=== PATIENT | male | born 1965 | race Caucasian/White ===

== ENCOUNTER → 2017-01-29 | Outpatient (CLI) | payer MEDICARE ==
--- NOTE | 2017-01-29 14:08 | MR ---
MR lumbar spine wo con Low back pain Multiplanar, multiecho imaging of the lumbar spine was obtained without contrast on a 3 Summer magnet. REFERENCE: Previous study dated 03/12/2014. FINDINGS: Paraspinal soft tissues are normal. Vertebral body height and alignment are maintained. There is no spondylolysis or spondylolisthesis. T here is a hemangioma in the body of L5. Cord signal is maintained. The conus ends normally at the level of the L1-2 disc. At T12-L1 and L1-2, no abnormalities demonstrated. At L2-3, there is mild capsulitis within the facets. At L3-4, the intervertebral foramina are widely maintained. There is no significant compressive disco janelle. There is hypertrophic change and capsulitis within the facets. At L4-5,there is mild disc space loss and disc desiccation. The intervertebral foramina appear well m aintained. There is a mild, diffuse disc displacement. This hypertrophic changes in the facets. There is mild lateral recess stenosis on the left. At L5-S1, there is a tiny central disc protrusion. This is effacing the thecal sac without definite n eural compression. There is bilateral intervertebral foraminal narrowing. There are hypertrophic stephenson ges in the facets. IMPRESSION: 1. DIFFUSE FACET ARTHROPATHY. 2. MILD LATERAL RECESS STENOSIS, L4-5. 3. TINY CENTRAL DISC PROTRUSION, L5-S1 EFFACING THE THECAL SAC WITHOUT DEFINITE NEURAL COMPRESSION. 4. BILATERAL INTERVERTEBRAL FORAMINAL NARROWING, L5-S1.
== END | disposition home or self-care (01) ==
LOC: RADMRIMAIN 13:19
PROVIDERS: ATTEND Nurse Practitioner Acute Care
DX: M48.06 Spinal stenosis, lumbar region (principal); M99.73 Connective tissue and disc stenosis of intervertebral foramina of lumbar region; M51.27 Other intervertebral disc displacement, lumbosacral region; M46.86 Other specified inflammatory spondylopathies, lumbar region
CPT/HCPCS: 72148

== ENCOUNTER 2017-08-11 19:33 | Emergency (ER) | payer MEDICARE ==
[2017-08-11 19:38] VITALS: RESP 18; TEMP 98
[2017-08-11] MEDS ORDERED: diphenhydrAMINE 50 MG/ML 1 ML VIAL IVP STA (20:17)
[2017-08-11] MEDS ORDERED: SODIUM CHLORIDE 0.9% 500 ML IV ONE (20:17)
[2017-08-11] MEDS ORDERED: KETOROLAC 30 MG/ML 1 ML VIAL IVP STA (20:17)
[2017-08-11] MEDS ORDERED: METOCLOPRAMIDE 5 MG/ML 2 ML VIAL IVP STA (20:17)
--- NOTE | 2017-08-11 20:20 | ED ---
Headache HPI - General Chief Complaint: Headache Time Seen by Provider: 08/11/17 20:07 Source: patient, RN notes reviewed Mode of arrival: wheelchair Limitations: no limitations - History of Present Illness Initial Comments: This a 51-year-old male presents emergency Department with chief complaint of headache. Patient states he has chronic headaches and chronic white matter changes. Patient states he has a normal MRIs. Patient states he was having an MRI ordered by Dr. Mackey his neurologist in which she developed a headache. He states is his typical bad headache and states that he has to come to the hospital for IV treatment. He states he gets nonnarcotic medications which usually help. He states he always has a headache but this is one of its worse. He does have some photosensitivity also complains of some nausea denies any vomiting, focal weakness. Denies any confusion. Denies neck pain or neck stiffness. - Related Data Home Medications Medication Instructions Recorded Confirmed Cyclobenzaprine [Flexeril] 10 mg PO HS 10/01/15 08/11/17 clonazePAM [KlonoPIN] 1 mg PO BID 10/01/15 08/11/17 lamoTRIgine 200 mg PO BID 10/01/15 08/11/17 Cholecalciferol (Vitamin D3) 2,000 unit PO HS 08/11/17 08/11/17 [Vitamin D3] Donepezil [Aricept] 10 mg PO HS 08/11/17 08/11/17 HYDROcodone/APAP 10-325MG [[place] 1 tab PO BID PRN 08/11/17 08/11/17 10-325] Verapamil HCl [Verapamil ER] 120 mg PO HS 08/11/17 08/11/17 Allergies Allergy/AdvReac Type Severity Reaction Status Date / Time No Known Allergies Allergy Verified 08/11/17 20:30 Review of Systems ROS Statement: Those systems with pertinent positive or pertinent negative responses have been documented in the HPI. ROS Other: All systems not noted in ROS Statement are negative. Past Medical History Past Medical History: Asthma, Fibromyalgia, Seizure Disorder Additional Past Medical History / Comment(s): headaches History of Any Multi-Drug Resistant Organisms: None Reported Past Surgical History: Appendectomy Past Psychological History: No Psychological Hx Reported Smoking Status: Never smoker Past Alcohol Use History: Occasional Past Drug Use History: None Reported General Exam Limitations: no limitations General appearance: alert, in no apparent distress Head exam: Present: atraumatic, normocephalic, normal inspection Eye exam: Present: normal appearance, PERRL, EOMI. Absent: scleral icterus, conjunctival injection, periorbital swelling ENT exam: Present: normal exam, normal oropharynx, mucous membranes moist, TM's normal bilaterally, normal external ear exam Neck exam: Present: normal inspection, full ROM. Absent: tenderness, meningismus, lymphadenopathy Respiratory exam: Present: normal lung sounds bilaterally. Absent: respiratory distress, wheezes, rales, rhonchi, stridor Cardiovascular Exam: Present: regular rate, normal rhythm, normal heart sounds. Absent: systolic murmur, diastolic murmur, rubs, gallop, clicks Neurological exam: Present: alert, oriented X3, CN II-XII intact, reflexes normal, other (Mybiue-sm-hxtt intact bilaterally without overshooting.). Absent : motor sensory deficit Skin exam: Present: warm, dry, intact, normal color. Absent: rash Course Vital Signs 08/11/17 19:36 Temperature 98 F Pulse Rate 76 Respiratory 18 Rate Blood Pressure 141/86 O2 Sat by Pulse 97 Oximetry - Reevaluation(s) Reevaluation #1: 08/11/17 21:06 Patient was reevaluated. Patient states it's much improved his headache is resolved. Medical Decision Making - Medical Decision Making 51-year-old male presented for migraine headache. Patient's symptoms are improved after Toradol, Reglan and Benadryl and some fluids. Patient's MRI was reviewed which shows chronic white matter changes. Patient has known history of this. Disposition Clinical Impression: Migraine Disposition: HOME SELF-CARE Condition: Stable Instructions: Acute Headache (ED) Additional Instructions: Please return to the Emergency Department if symptoms worsen or any other concerns. Referrals: Dwayne Belle MD [Primary Care Provider] - 1-2 days Time of Disposition: 21:07
--- NOTE | 2017-08-11 20:32 | MR ---
EXAMINATION TYPE: MR brain wo/w con DATE OF EXAM: 08/11/2017 COMPARISON: 07/05/2016 HISTORY: White matter disease, MS protocol TECHNIQUE: Multiplanar, multisequence images of the brain and brainstem is performed without and with IV contras t, utilizing 7 mL intravenous Gadavist . FINDINGS: There are numerous scattered foci of abnormal increased signal on the T2 and FLAIR images i n the graff-white matter junction of both cerebral hemispheres. Total number is approximately 30. Thes e measure up to 10 mm. There are more foci in the parietal lobes. The brainstem appears normal. Cereb ellum appears normal. There is relative sparing of the corpus callosum. Lesions are mostly at the gra y-white matter junction. The sella turcica appears normal. I see no pathologic enhancement. There is mucosal thickening in the ethmoid and right maxillary sinus. There is no evidence of a cortical infar ct. IMPRESSION: Numerous white matter lesions without enhancement at the graff-white matter junction of th e hemispheres. These appear not significantly different than last exam of 07/05/2016. The lesions are small and peripheral and more likely related to small vessel ischemia. Demyelinating disease is in t he differential diagnosis. There is chronic ethmoid and right maxillary sinusitis similar to old exam.
[2017-08-11 21:24] VITALS: BP 118/75; PULSE 65
== END 2017-08-11 21:32 | disposition home or self-care (01) ==
LOC: EC 19:33
DX: G40.909 Epilepsy, unspecified, not intractable, without status epilepticus (principal); G43.909 Migraine, unspecified, not intractable, without status migrainosus; M79.7 Fibromyalgia; Z79.899 Other long term (current) drug therapy
CPT/HCPCS: 70553; 99283; 96374; 96375 ×2; 96361; J1200; J2765; J1885; A9581

== ENCOUNTER → 2017-10-28 | Outpatient (CLI) | payer MEDICARE ==
--- NOTE | 2017-10-28 12:09 | MR ---
EXAMINATION TYPE: MR lumbar spine wo con DATE OF EXAM: 10/28/2017 COMPARISON: 03/12/2014, 01/29/2017 HISTORY: Spondylosis, B/L lower extremity radiculitis TECHNIQUE: T1 and T2 axial and sagittal images of the lumbar spine are submitted. FINDINGS: There is no abnormal signal seen within the visualized spinal cord or paraspinal soft tissu es. At L1-2 there is no degenerative disc disease, disc herniation, canal stenosis. No foraminal encroach ment. At L2-3 there is no degenerative disc disease, disc herniation, canal stenosis. No foraminal encroach ment. At L3-4 there is mild disc desiccation and mild facet arthropathy. No disc herniation or canal stenos is. Neural foramina patent. At L4-5 there is Diffuse circumferential disc bulging greater laterally to left with mild left-sided foraminal encroachment. There is mild effacement of thecal sac with hypertrophy of the ligamentum fla vum and facet joints. Findings result in borderline to mild central stenosis. At L5-S1 there is degenerative disc disease with focal central disc bulging. No foraminal encroachmen t. No Canal stenosis. Facet arthropathy noted. Vertebral body hemangioma of L5 IMPRESSION: 1. Degenerative disc disease L4-5 and L5-S1 with disc bulging at both levels. Mild left-sided foramin al encroachment at L4-5 due to greater left paracentral and lateral disc bulging resulting in borderl ine to mild central stenosis. Findings appear stable.
== END | disposition home or self-care (01) ==
LOC: RADMRIMAIN 09:31
PROVIDERS: ATTEND Orthopaedic Surgery Orthopaedic Surgery of the Spine
DX: M48.061 Spinal stenosis, lumbar region without neurogenic claudication (principal); M51.17 Intervertebral disc disorders with radiculopathy, lumbosacral region
CPT/HCPCS: 72148

== ENCOUNTER 2017-12-25 14:48 | Emergency (ER) | payer MEDICARE ==
[2017-12-25 15:10] VITALS: RESP 18
--- NOTE | 2017-12-25 15:43 | ED ---
General Adult HPI - General Chief complaint: Eye Problems Stated complaint: vision problems Time Seen by Provider: 12/25/17 15:15 Source: patient, RN notes reviewed Mode of arrival: ambulatory Limitations: no limitations - History of Present Illness Initial comments: Patient is a pleasant 52-year-old male presenting to the emergency department with concern of visual changes. Onset was yesterday evening around 6 or 7:00. Patient did go to a concert last night and that seemed to make symptoms worse. Symptoms continued today. Patient does have an area of visual loss that is described as a black dot or almost a hair. Patient states this is a small part of his vision, much less than 25%. No pain. Area of visual loss does move. Only the right eye is affected. No trauma. No eye redness or discharge. No history of similar symptoms previously. - Related Data Home Medications Medication Instructions Recorded Confirmed Cyclobenzaprine [Flexeril] 10 mg PO HS 10/01/15 08/11/17 clonazePAM [KlonoPIN] 1 mg PO BID 10/01/15 08/11/17 lamoTRIgine 200 mg PO BID 10/01/15 08/11/17 Cholecalciferol (Vitamin D3) 2,000 unit PO HS 08/11/17 08/11/17 [Vitamin D3] Donepezil [Aricept] 10 mg PO HS 08/11/17 08/11/17 HYDROcodone/APAP 10-325MG [[place] 1 tab PO BID PRN 08/11/17 08/11/17 10-325] Verapamil HCl [Verapamil ER] 120 mg PO HS 08/11/17 08/11/17 Allergies Allergy/AdvReac Type Severity Reaction Status Date / Time divalproex sodium Allergy Unknown Verified 12/25/17 15:10 [[facility] Review of Systems ROS Statement: Those systems with pertinent positive or pertinent negative responses have been documented in the HPI. ROS Other: All systems not noted in ROS Statement are negative. Constitutional: Denies: fever Eyes: Reports: as per HPI, vision change. Denies: eye pain, eye discharge ENT: Denies: ear pain Respiratory: Denies: cough Cardiovascular: Denies: chest pain Endocrine: Denies: fatigue Gastrointestinal: Denies: abdominal pain Genitourinary: Denies: dysuria Musculoskeletal: Denies: back pain Skin: Denies: rash Neurological: Denies: weakness, confusion Past Medical History Past Medical History: Asthma, Fibromyalgia, Seizure Disorder Additional Past Medical History / Comment(s): headaches, lyme disease, chronic back pain History of Any Multi-Drug Resistant Organisms: None Reported Past Surgical History: Appendectomy, Orthopedic Surgery Additional Past Surgical History / Comment(s): right knee Past Psychological History: No Psychological Hx Reported Smoking Status: Never smoker Past Alcohol Use History: Occasional Past Drug Use History: None Reported General Exam Limitations: no limitations General appearance: alert, in no apparent distress Head exam: Present: atraumatic Eye exam: Present: normal appearance, PERRL, EOMI. Absent: scleral icterus, conjunctival injection, nystagmus, periorbital swelling, periorbital tenderness Expanded Eyelids: Normal Inspection: Bilateral Pupils: Regular, Round: Bilateral, Reactive: Bilateral Sclera/Conjunctival: Normal Inspection: Bilateral Posterior chamber: Normal Inspection: Bilateral Respiratory exam: Present: normal lung sounds bilaterally Cardiovascular Exam: Present: regular rate, normal rhythm GI/Abdominal exam: Present: soft. Absent: tenderness Extremities exam: Present: normal inspection Neurological exam: Present: alert Psychiatric exam: Present: normal affect, normal mood Skin exam: Present: normal color Course Vital Signs 12/25/17 15:06 Temperature 98.1 F Pulse Rate 81 Respiratory 18 Rate Blood Pressure 136/84 O2 Sat by Pulse 98 Oximetry Medical Decision Making - Medical Decision Making Case discussed in detail Dr. Mckeon with ophthalmology who does not feel further workup is needed at this time and will follow up with patient tomorrow. Disposition Clinical Impression: Floaters Disposition: HOME SELF-CARE Condition: Stable Instructions: Visual Floaters (ED) Additional Instructions: Please follow-up tomorrow with Dr. Marr, number provided. Call first thing in the morning. Return for pain, fever, loss of vision, worsening symptoms or other concerns. Is patient prescribed a controlled substance at d/c from ED?: No Referrals: Dwayne Belle MD [Primary Care Provider] - 1-2 days Leonard Mckeon MD [STAFF PHYSICIAN] - 1-2 days Time of Disposition: 16:10
[2017-12-25 16:38] VITALS: BP 135/88; PULSE 65; TEMP 97.7
== END 2017-12-25 16:35 | disposition home or self-care (01) ==
LOC: EC 14:48
DX: H43.391 Other vitreous opacities, right eye (principal); G40.909 Epilepsy, unspecified, not intractable, without status epilepticus; G89.29 Other chronic pain; Z79.899 Other long term (current) drug therapy; Z88.8 Allergy status to other drugs, medicaments and biological substances
CPT/HCPCS: 99283

== ENCOUNTER 2018-01-30 05:05 | Inpatient (IN) | payer MEDICARE ==
[2018-01-30] MEDS ORDERED: SODIUM CHLORIDE 0.9% 1,000 ML IV STA (05:10)
[2018-01-30 05:14] LABS: Glucose,Whole Blood 101 mg/dL (75-99)
[2018-01-30 05:35] LABS: Basophils % (A) 1 %; Eosinophils # (A) 0.2 k/uL (0-0.7); Eosinophils % (A) 3 %; HCT 43.7 % (39.0-53.0); HGB 14.9 gm/dL (13.0-17.5); Lymphocytes # (A) 1.7 k/uL (1.0-4.8); Lymphocytes % (A) 21 %; MCH 31.6 pg (25.0-35.0); MCV 92.9 fL (80.0-100.0); Mean Platelet Volume 6.5; Monocytes # (A) 0.5 k/uL (0-1.0); Monocytes % (A) 6 %; Neutrophils # (A) 5.5 k/uL (1.3-7.7); Neutrophils % (A) 68 %; Platelet Count 202 k/uL (150-450); RDW 12.8 % (11.5-15.5); WBC 8.1 k/uL (3.8-10.6)
--- NOTE | 2018-01-30 05:43 | ED ---
General Adult HPI - General Chief complaint: Neuro Symptoms/Deficit Stated complaint: poss stroke Time Seen by Provider: 01/30/18 05:07 Source: patient, RN notes reviewed, old records reviewed Mode of arrival: wheelchair Limitations: no limitations - History of Present Illness Initial comments: This is a 52-year-old prior to arrival with left upper extremity weakness and decrease in sensation. No other neurological complaint, no headache no trauma. No recent change in medications. Patient denies fever cough or congestion. No abdominal pain. Patient admits to good appetite. - Related Data Home Medications Medication Instructions Recorded Confirmed Cyclobenzaprine [Flexeril] 10 mg PO HS 10/01/15 08/11/17 clonazePAM [KlonoPIN] 1 mg PO BID 10/01/15 08/11/17 lamoTRIgine 200 mg PO BID 10/01/15 08/11/17 Cholecalciferol (Vitamin D3) 2,000 unit PO HS 08/11/17 08/11/17 [Vitamin D3] Donepezil [Aricept] 10 mg PO HS 08/11/17 08/11/17 HYDROcodone/APAP 10-325MG [[place] 1 tab PO BID PRN 08/11/17 08/11/17 10-325] Verapamil HCl [Verapamil ER] 120 mg PO HS 08/11/17 08/11/17 Allergies Allergy/AdvReac Type Severity Reaction Status Date / Time divalproex sodium Allergy Unknown Verified 12/25/17 15:10 [From Depakote] Review of Systems ROS Statement: Those systems with pertinent positive or pertinent negative responses have been documented in the HPI. ROS Other: All systems not noted in ROS Statement are negative. Past Medical History Past Medical History: Asthma, Fibromyalgia, Seizure Disorder Additional Past Medical History / Comment(s): headaches, lyme disease, chronic back pain History of Any Multi-Drug Resistant Organisms: None Reported Past Surgical History: Appendectomy, Orthopedic Surgery Additional Past Surgical History / Comment(s): right knee Past Psychological History: No Psychological Hx Reported Smoking Status: Never smoker Past Alcohol Use History: Occasional Past Drug Use History: None Reported General Exam - General Exam Comments Initial Comments: NIH of 1 Limitations: no limitations General appearance: alert, in no apparent distress Head exam: Present: atraumatic, normocephalic, normal inspection Eye exam: Present: normal appearance, PERRL, EOMI. Absent: scleral icterus, conjunctival injection, periorbital swelling ENT exam: Present: normal exam, mucous membranes moist Neck exam: Present: normal inspection. Absent: tenderness, meningismus, lymphadenopathy Respiratory exam: Present: normal lung sounds bilaterally. Absent: respiratory distress, wheezes, rales, rhonchi, stridor Cardiovascular Exam: Present: regular rate, normal rhythm, normal heart sounds. Absent: systolic murmur, diastolic murmur, rubs, gallop, clicks GI/Abdominal exam: Present: soft, normal bowel sounds. Absent: distended, tenderness, guarding, rebound, rigid Extremities exam: Present: normal inspection, full ROM, normal capillary refill. Absent: tenderness, pedal edema, joint swelling, calf tenderness Back exam: Present: normal inspection Neurological exam: Present: alert, oriented X3, CN II-XII intact Psychiatric exam: Present: normal affect, normal mood Skin exam: Present: warm, dry, intact, normal color. Absent: rash Course Vital Signs 01/30/18 05:11 Temperature 97 F L Pulse Rate 80 Respiratory 20 Rate Blood Pressure 140/90 O2 Sat by Pulse 96 Oximetry - Reevaluation(s) Reevaluation #1: 01/30/18 06:07 No change in symptoms at this time Reevaluation #2: 01/30/18 06:07 Medical record is reviewed EKG Findings - EKG Comments: EKG Findings:: EKG shows normal sinus rhythm rate of 75, MS 164, QRS 80, QTC 506 Medical Decision Making - Medical Decision Making 52 male the ER with left upper extremity weakness decreased sensation, patient to be admit to having stroke. Patient's not TPA candidate secondary to both low NIH, and onset of symptoms prior to waking up. Patient will be admitted to the hospital for evaluation. - Lab Data Result diagrams: 01/30/18 05:22 01/30/18 05:22 Lab Results 01/30/18 01/30/18 01/30/18 Range/Units 05:11 05:22 05:22 WBC 8.1 (3.8-10.6) k/uL RBC 4.70 (4.30-5.90) m/uL Hgb 14.9 (13.0-17.5) gm/dL Hct 43.7 (39.0-53.0) % MCV 92.9 (80.0-100.0) fL MCH 31.6 (25.0-35.0) pg MCHC 34.0 (31.0-37.0) g/dL RDW 12.8 (11.5-15.5) % Plt Count 202 (150-450) k/uL Neutrophils % 68 % Lymphocytes % 21 % Monocytes % 6 % Eosinophils % 3 % Basophils % 1 % Neutrophils # 5.5 (1.3-7.7) k/uL Lymphocytes # 1.7 (1.0-4.8) k/uL Monocytes # 0.5 (0-1.0) k/uL Eosinophils # 0.2 (0-0.7) k/uL Basophils # 0.0 (0-0.2) k/uL PT (9.0-12.0) sec INR (<1.2) APTT (22.0-30.0) sec Sodium (137-145) mmol/L Potassium (3.5-5.1) mmol/L Chloride (98-107) mmol/L Carbon Dioxide (22-30) mmol/L Anion Gap mmol/L BUN (9-20) mg/dL Creatinine (0.66-1.25) mg/dL Est GFR (CKD-EPI)AfAm (>60 ml/min/1.73 sqM) Est GFR (CKD-EPI)NonAf (>60 ml/min/1.73 sqM) Glucose (74-99) mg/dL POC Glucose (mg/dL) 101 H (75-99) mg/dL POC Glu [employer] ID Arik Ackerman Calcium (8.4-10.2) mg/dL Total Bilirubin (0.2-1.3) mg/dL AST (17-59) U/L ALT (21-72) U/L Alkaline Phosphatase (38-126) U/L Total Creatine Kinase 80 (55-170) U/L CK-MB (CK-2) 0.6 (0.0-2.4) ng/mL CK-MB (CK-2) Rel Index 0.8 Troponin I <0.012 (0.000-0.034) ng/mL Total Protein (6.3-8.2) g/dL Albumin (3.5-5.0) g/dL 06/25/18 06/25/18 Range/Units 05:22 05:22 WBC (3.8-10.6) k/uL RBC (4.30-5.90) m/uL Hgb (13.0-17.5) gm/dL Hct (39.0-53.0) % MCV (80.0-100.0) fL MCH (25.0-35.0) pg MCHC (31.0-37.0) g/dL RDW (11.5-15.5) % Plt Count (150-450) k/uL Neutrophils % % Lymphocytes % % Monocytes % % Eosinophils % % Basophils % % Neutrophils # (1.3-7.7) k/uL Lymphocytes # (1.0-4.8) k/uL Monocytes # (0-1.0) k/uL Eosinophils # (0-0.7) k/uL Basophils # (0-0.2) k/uL PT 9.9 (9.0-12.0) sec INR 1.0 (<1.2) APTT 22.1 (22.0-30.0) sec Sodium 141 (137-145) mmol/L Potassium 4.0 (3.5-5.1) mmol/L Chloride 102 (98-107) mmol/L Carbon Dioxide 30 (22-30) mmol/L Anion Gap 9 mmol/L BUN 12 (9-20) mg/dL Creatinine 1.10 (0.66-1.25) mg/dL Est GFR (CKD-EPI)AfAm 88 (>60 ml/min/1.73 sqM) Est GFR (CKD-EPI)NonAf 76 (>60 ml/min/1.73 sqM) Glucose 101 H (74-99) mg/dL POC Glucose (mg/dL) (75-99) mg/dL POC Glu [employer]ice ID Calcium 9.0 (8.4-10.2) mg/dL Total Bilirubin 0.4 (0.2-1.3) mg/dL AST 24 (17-59) U/L ALT 30 (21-72) U/L Alkaline Phosphatase 92 (38-126) U/L Total Creatine Kinase (55-170) U/L CK-MB (CK-2) (0.0-2.4) ng/mL CK-MB (CK-2) Rel Index Troponin I (0.000-0.034) ng/mL Total Protein 6.3 (6.3-8.2) g/dL Albumin 4.3 (3.5-5.0) g/dL - Radiology Data Radiology results: report reviewed (CT brain CT had neck negative), image reviewed Disposition Clinical Impression: Cerebrovascular accident, Transient cerebral ischemia Disposition: ADMITTED IP TO THIS [facility] Condition: Fair Is patient prescribed a controlled substance at d/c from ED?: No Referrals: Dwayne Belle MD [Primary Care Provider] - 1-2 days
[2018-01-30 05:49] LABS: Albumin 4.3 g/dL (3.5-5.0); Total Bilirubin 0.4 mg/dL (0.2-1.3); Total Protein 6.3 g/dL (6.3-8.2)
[2018-01-30 05:50] LABS: Creatine Kinase 80 U/L (55-170)
[2018-01-30 05:57] LABS: Partial Thromboplastin Time 22.1 sec (22.0-30.0); Prothrombin Time 9.9 sec (9.0-12.0)
[2018-01-30 06:03] LABS: Creatine Kinase MB 0.6 ng/mL (0.0-2.4); Troponin I <0.012 ng/mL (0.000-0.034)
[2018-01-30] MEDS ORDERED: ASPIRIN 325 MG TAB PO STA (06:08)
--- NOTE | 2018-01-30 06:18 | CT ---
EXAMINATION TYPE: CT brain wo con for TPA DATE OF EXAM: 01/30/2018 COMPARISON: 10/01/2015 HISTORY: 1306.40 CT DLP: R/O Stroke mGycm Automated exposure control for dose reduction was used. FINDINGS: Ventricles of normal size. There is no mass effect nor midline shift. There is no sign of intracrania l hemorrhage. The calvarium appears intact. IMPRESSION: NORMAL HEAD CT SCAN. NO CHANGE.
--- NOTE | 2018-01-30 06:21 | CT ---
EXAMINATION TYPE: CT angio head neck DATE OF EXAM: 01/30/2018 HISTORY: R/O Stroke, left arm numbness COMPARISON: NONE CT DLP: 1306.40 mGycm. Automated Exposure Control for Dose Reduction was Utilized. TECHNIQUE: CTA scan of the neck is performed with IV Contrast, patient injected with 65 mL of Isovue 370, axial images are obtained, coronal and sagittal reformatted images are reviewed. Three-D recons tructed images are created on an independent workstation and reviewed. FINDINGS: There is normal branching pattern of the great vessels on the aortic arch. Left vertebral artery as s eparate origin on the arch. There is arterial flow in both vertebral arteries which are fairly symmetric. There is arterial flow in the common internal and external carotid arteries bilaterally. There is wide patency of the caroti d artery bifurcations. There is no evidence of carotid artery aneurysm or dissection. There is no bonnie dence of carotid artery stenosis. There is arterial flow in the vertebrobasilar artery system. There is flow in the right posterior com municating artery. There is arterial flow in the anterior middle and posterior cerebral arteries. I s ee no evidence of aneurysm or neovascularity. There is no evidence of spasm. I see no cerebral artery stenosis. There is normal contrast opacification of the venous sinuses. IMPRESSION: Normal CT angiogram of the neck. Normal CT angiogram of the brain.
[2018-01-30] MEDS: SODIUM CHLORIDE 0.9% 1,000 ML IV SCH ×2 (06:51→17:30)
[2018-01-30] MEDS ORDERED: HYDROcodone/APAP 5-325MG 1 EACH TAB PO STA (07:11)
[2018-01-30] MEDS ORDERED: LORazepam 2 MG/ML INJ IV STA (07:48)
[2018-01-30] MEDS ORDERED: LORazepam 2 MG/ML INJ IV PRN (07:57)
[2018-01-30] MEDS: oxyCODONE-APAP 10-325MG 1 EACH TAB PO SCH ×2 (10:58→22:17)
[2018-01-30] MEDS: clonazePAM 1 MG TAB PO SCH ×3 (10:58→22:13)
[2018-01-30] MEDS: lamoTRIgine 100 MG TAB PO SCH ×2 (11:00→22:13)
[2018-01-30] MEDS: HEPARIN SODIUM,PORCINE 5,000 UNIT/ML 1 ML VIAL SQ SCH (11:05)
[2018-01-30] MEDS: FAMOTIDINE 20 MG/2 ML VIAL IV SCH (11:07)
[2018-01-30] MEDS ORDERED: PNEUMOCOCCAL VACC-PNEUMOVAX 23 25 MCG/0.5 ML VIAL IM ONE (12:32)
--- NOTE | 2018-01-30 13:15 | ECHOF ---
Referral Reason:Thrombus MEASUREMENTS -------- HEIGHT: 165.1 cm WEIGHT: 77.1 kg BP: 140/90 RVIDd: 2.7 cm (< 3.3) IVSd: 1.1 cm (0.6 - 1.1) LVIDd: 4.8 cm (3.9 - 5.3) LVPWd: 1.0 cm (0.6 - 1.1) IVSs: 1.4 cm LVIDs: 2.8 cm LVPWs: 1.3 cm LA Diam: 4.1 cm (2.7 - 3.8) LAESV Index (A-L): 25.05 ml/m Ao Diam: 2.8 cm (2.0 - 3.7) AV Cusp: 1.9 cm (1.5 - 2.6) LA Diam: 4.0 cm (2.7 - 3.8) MV EXCURSION: 15.618 mm (> 18.000) MV EF SLOPE: 103 mm/s (70 - 150) EPSS: 0.5 cm MV E Channing: 0.81 m/s MV DecT: 183 ms MV A Channing: 1.01 m/s MV E/A Ratio: 0.80 RAP: 5.00 mmHg RVSP: 10.65 mmHg FINDINGS -------- Sinus rhythm. This was a technically good study. LV size, wall thickness and systolic function are normal, with an EF greater than 55%. The left michael tricular size is normal. The right ventricle is normal in size. The left atrium is mildly dilated. Normal LA size by volume 22+/-6 ml/m2. The right atrial size is normal. The aortic valve is trileaflet, and appears structurally normal. No aortic stenosis or regurgitation. Mild mitral annular calcification present. Mild mitral regurgitation is present. Mild tricuspid regurgitation present. There is no evidence of pulmonary hypertension. The right v entricular systolic pressure, as measured by Doppler, is 10.65mmHg. There is no pulmonic regurgitation present. The aortic root size is normal. There is no pericardial effusion. CONCLUSIONS -------- 1. LV size, wall thickness and systolic function are normal, with an EF greater than 55%. 2. The left ventricular size is normal. 3. The right ventricle is normal in size. 4. The left atrium is mildly dilated. 5. The right atrial size is normal. 6. The aortic valve is trileaflet, and appears structurally normal. No aortic stenosis or regurgitati on. 7. Mild mitral annular calcification present. 8. Mild mitral regurgitation is present. 9. Mild tricuspid regurgitation present. 10. There is no evidence of pulmonary hypertension. 11. The right ventricular systolic pressure, as measured by Doppler, is 10.65mmHg. 12. There is no pulmonic regurgitation present. 13. The aortic root size is normal. 14. There is no pericardial effusion. AIRPLANE PILOT PHOTOGRAMMETRY: Jami Fuentes RDCS
[2018-01-30 16:42] LABS: Appearance,Urine Clear (Clear); Bilirubin,Urine Negative (Negative); Blood,Urine Negative (Negative); Color,Urine Yellow; Glucose,Urine (UA) Trace (Negative); Ketones,Urine Negative (Negative); Leukocyte Esterase,Urine Negative (Negative); Nitrite,Urine Negative (Negative); PH, Urine 7.5 (5.0-8.0); Protein,Urine Trace (Negative)
[2018-01-30 16:55] LABS: Amphetamine Screen,Urine Not Detected (NotDetected); Barbiturate Screen,Urine Not Detected (NotDetected); Benzodiazepines Screen,Urine Detected (NotDetected); Cocaine Screen,Urine Not Detected (NotDetected); Methadone Screen, Urine Not Detected (NotDetected); Opiate Screen,Urine Detected (NotDetected); Oxycodone Screen, Urine Detected (NotDetected); Phencyclidine Screen,Urine Not Detected (NotDetected); Tricyclic Antidepressant,Urine Not Detected (NotDetected); Urn Cannabinoid Scrn Not Detected (NotDetected)
[2018-01-30 17:11] LABS: Specific Gravity,Urine >1.050 (1.001-1.035)
[2018-01-30] MEDS: ATORVASTATIN 80 MG TAB PO SCH (22:13)
[2018-01-30] MEDS: DONEPEZIL 10 MG TAB PO SCH (22:13)
[2018-01-30] MEDS: VERAPAMIL SR 120 MG TABLET.ER PO SCH (22:13)
[2018-01-30] MEDS: CHOLECALCIFEROL 1,000 UNIT TAB PO SCH (22:13)
[2018-01-30] MEDS: CYCLOBENZAPRINE 10 MG TAB PO SCH (22:14)
--- NOTE | 2018-01-30 22:23 | CONS ---
CONSULTATION DATE OF CONSULTATION: 01/30/2018. CHIEF COMPLAINT: Possible stroke. HISTORY OF PRESENT ILLNESS: Mr. Hanson is a pleasant 52-year-old, male, who is being evaluated by the neurology service per the request of Dr. Fish for a possible stroke. The patient states that he woke up this morning with severe pain and tingling involving his left upper extremity. He also noticed that his left arm is weak. He did not seek immediate medical attention thinking he had "slept on it wrong." When the symptoms did not resolve, he was brought into [facility] Emergency Room for further management and workup. A CT scan of the brain was done, which showed no acute abnormalities. A CT angiogram of the brain and neck were done which were normal. The patient does follow up with me in the outpatient setting and has been worked up for possible demyelinating disease in the past. His last MRI of the brain was done earlier this year which did show multiple white matter changes, but this was felt to be unchanged when compared to his 2016 MRI of the brain. His CBC, INR, comprehensive metabolic profile and cardiac enzymes and urinalysis were reviewed and were normal. His urine drug screen was positive for oxycodone, opiates, and benzodiazepine. The patient does take Percocet and Klonopin at home but he is not on any opiates. At the time of my evaluation, the patient continues to complain of left upper extremity pain and weakness although the intensity has improved. He denies any headache and denies any lower extremity acute symptoms. He does have chronic lower extremity pain from fibromyalgia. PAST MEDICAL HISTORY: Chronic pain syndrome, fibromyalgia, asthma, history of Lyme disease, chronic lumbago, migraine headaches, orthopedic surgeries, appendectomy. SOCIAL HISTORY: He occasionally drinks alcohol. He denies any tobacco or drug use. FAMILY HISTORY: Noncontributory. HOME MEDICATIONS: Reviewed in the chart. ALLERGIES: DEPAKOTE. REVIEW OF SYSTEMS: CONSTITUTIONAL: Positive for fatigue. EYES: Negative. ENT: Negative. CARDIOVASCULAR: Negative. RESPIRATORY: Positive for occasional shortness of breath. NEUROLOGICAL: As mentioned above. GASTROINTESTINAL: Negative. GENITOURINARY: Negative. PSYCHIATRIC: Negative. MUSCULOSKELETAL: As mentioned above. ENDOCRINE: Negative. DERMATOLOGICAL: Negative. GENITOURINARY: Negative. PHYSICAL EXAM: Vital signs show a temperature of 97.0, pulse 70, respiration 18, blood pressure 132/82. GENERAL APPEARANCE: The patient is a well-developed male who appears to be in no acute distress. HEENT: Normocephalic, atraumatic, no facial asymmetry is seen. Extraocular muscles are intact. NECK: Supple with no masses felt. CARDIOVASCULAR: Regular rate and rhythm. ABDOMEN: Nontender nondistended. Extremities showed no edema or clubbing. Neurological exam: The patient is awake and oriented x3. Speech and language are normal. Strength is 4/5 in the left upper extremity and 5 minus out of 5 elsewhere. Sensory exam showed significant allodynia involving the left forearm and hand. There is slight sensory deficit in the proximal left upper extremity compared to the right. No pronator drift is seen. No facial asymmetry is noticed on cranial nerve testing. No tremors or seizure-like activity is seen. IMPRESSION: 1. Possible stroke. 2. Left upper extremity sensory deficit and weakness. 3. Chronic pain syndrome. 4. Abnormal urine drug screen. 5. White matter changes. RECOMMENDATION: The patient continues to have left upper extremity weakness, sensory deficit, and allodynia. The differential diagnosis does include an ischemic stroke versus acute demyelination versus cervical spine pathology. I will order an MRI of the brain with and without contrast along with a cervical spine MRI without contrast. I will also order a fasting lipid panel, EEG, and serum homocystine level. If his MRI shows no evidence of any acute ischemia, I will start the patient on gabapentin and IV Solu- Medrol and will monitor for improvements. As for his urine drug screen results, I will order a confirmation test regarding the findings of opiates in his system. Continue the rest of your current workup and management. I will continue to follow with you. Further recommendations to follow. Thank you for allowing me to participate in the care of your patient. If you have any questions, please feel free to contact me. MMODL / IJN: [id number] /
--- NOTE | 2018-01-30 23:53 | P.HPIM ---
History of Present Illness H&P Date: 01/30/18 Chief Complaint: Left Upper extremity weakness Patient is a 52-year-old male with a known history of asthma, fibromyalgia, memory impairment seizure disorder and history of Lyme's disease as well as chronic back pain lower disc degenerative disease came to ER with complaints of left upper extremity pain. Patient says that he woke up at 3 AM today and thought he slept on his hand. Patient is complaining of left arm numbness and tingling went up from the hand. Which is getting worse and made him come to the hospital. Apparently patient has been stressful situation and is going through divorce. She says that he had Lyme's disease about 10 years ago since then he developed fibromyalgia and paresthesias and neurological symptoms. Patient follows with neurology and pain management. UDS is positive for oxycodone opiates and benzodiazepines CT head showed no acute intracranial process Normal CT angiogram of the neck 2-D echocardiogram showed normal ejection fraction Review of Systems Constitutional: Patient denies any fever or chills . No generalized weakness or weight loss. Abdomen: Patient denied nausea vomiting and diarrhea and abdominal pain. Cardiovascular: Patient denies any chest pain or short of breath no palpitations. Respiratory: patient denied any cough is from production. No shortness of breath Neurologic: Left arm numbness and tingling Musculoskeletal: Patient denies any complaints of joint swelling or deformity. Skin: Negative Psychiatric: Negative Endocrine: No heat or cold intolerance. No recent weight gain. Genitourinary: No dysuria or hematuria. All other 14 point ROS negative except the above Past Medical History Past Medical History: Asthma, Fibromyalgia, Memory Impairment, Seizure Disorder Additional Past Medical History / Comment(s): Lymes disease, DDD, bulging discs , chronic low back pain, brain lesions-scar tissue, last seizure 01/30/18, memory /cognitive problems at times. History of Any Multi-Drug Resistant Organisms: None Reported Past Surgical History: Appendectomy, Cholecystectomy, Orthopedic Surgery Additional Past Surgical History / Comment(s): right knee arthroscopy Past Anesthesia/Blood Transfusion Reactions: No Reported Reaction Smoking Status: Never smoker - Past Family History Father Family Medical History: Myocardial Infarction ([place]) Additional Family Medical History / Comment(s): Father of a [place] at the age of 62 yrs. Mother History Unknown: Yes Additional Family Medical History / Comment(s): Mother did not discuss her health problems. Medications and Allergies Home Medications Medication Instructions Recorded Confirmed Type Cyclobenzaprine [Flexeril] 10 mg PO HS 10/01/15 01/30/18 History clonazePAM [KlonoPIN] 1 mg PO TID 10/01/15 01/30/18 History lamoTRIgine 200 mg PO BID 10/01/15 01/30/18 History Cholecalciferol (Vitamin D3) 2,000 unit PO HS 08/11/17 01/30/18 History [Vitamin D3] Donepezil [Aricept] 10 mg PO HS 08/11/17 01/30/18 History Verapamil HCl [Verapamil ER] 120 mg PO HS 08/11/17 01/30/18 History Aspirin EC [Ecotrin Low Dose] 81 mg PO DAILY 01/30/18 01/30/18 History oxyCODONE-APAP 10-325MG [Percocet 1 tab PO BID 01/30/18 01/30/18 History 10-325 mg] Allergies Allergy/AdvReac Type Severity Reaction Status Date / Time divalproex sodium Allergy Unknown Verified 01/30/18 09:03 [From [facility]] Physical Exam Vitals: Vital Signs Temp Pulse Pulse Resp BP BP Pulse Ox 01/30/18 15:08 70 18 132/82 98 01/30/18 11:13 83 18 119/79 96 01/30/18 07:48 75 18 119/65 99 01/30/18 05:11 97 F L 80 20 140/90 96 Intake and Output 01/30/18 01/30/18 01/30/18 06:59 14:59 22:59 Other: Weight 77.111 kg PHYSICAL EXAMINATION: Patient is lying in the bed comfortably, no acute distress, awake alert and oriented. Slight cognitive impairment. HEENT: Normocephalic. Neck is supple. Pupils reactive. Nostrils clear. Oral cavity is moist. Ears reveal no drainage. Neck reveals no JVD, carotid bruits, or thyromegaly. CHEST EXAMINATION: Trachea is central. Symmetrical expansion. Lung wise clear to auscultation and percussion. CARDIAC: Normal S1, S2 with no gallops. No murmurs ABDOMEN: Soft. Bowel sounds normal. No organomegaly. No abdominal bruits. Extremities: reveal no edema. No clubbing or cyanosis Neurologically awake, alert, oriented x3 with well-coordinated movements. Muscle strength is normal. No focal deficits noted Skin: No rash or skin lesions. Psychiatric: Cooperative. Appears to be anxious. Denied any suicidal ideation Musculoskeletal: No joint swelling or deformity. Normal range of motion. Results CBC & Chem 7: 01/30/18 05:22 01/30/18 05:22 Labs: Abnormal Lab Results - Last 24 Hours (Table) 01/30/18 01/30/18 Range/Units 05:11 05:22 Glucose 101 H (74-99) mg/dL POC Glucose (mg/dL) 101 H (75-99) mg/dL Thrombosis Risk Factor Assmnt - DVT/VTE Prophylaxis DVT/VTE Prophylaxis: Pharmacologic Prophylaxis ordered - Choose All That Apply Any of the Below Risk Factors Present?: Yes Each Factor Represents 1 point: Age 41-60 years, Obesity (BMI >25) Other Risk Factors: Yes Other congenital or acquired thrombophilia - If yes, enter type in comment: No Each Risk Factor Represents 5 Points: Stroke (< 1 month) Thrombosis Risk Factor Assessment Total Risk Factor Score: 7 Thrombosis Risk Factor Assessment Level: High Risk Assessment and Plan Assessment: Left arm pain with numbness and tingling likely due to cervical radiculopathy. Possible acute CVA cannot be excluded Fibromyalgia and chronic lower extremity pain Asthma not in exacerbation Memory impairment Seizure disorder History of Lyme's disease Degenerative disc disease Chronic low back pain Chronic white matter ischemic changes Stressful situation UDS positive for oxycodone been arrangements and opiates Plan: Patient will be continued on aspirin and statins. CT head is negative for any acute intracranial process. Neurology was consulted for further evaluation. Continue the home pain medications and muscle relaxants. Will follow closely and further recommendations based on the clinical course. Time with Patient: Greater than 30
[2018-01-31] MEDS: SODIUM CHLORIDE 0.9% 1,000 ML IV SCH ×2 (02:24→13:14)
[2018-01-31] MEDS ORDERED: ASPIRIN 325 MG TAB PO SCH (06:09)
[2018-01-31 06:50] LABS: Cholesterol 118 mg/dL (<200); HDL Cholesterol 38 mg/dL (40-60); LDL Cholesterol,Calculated 41 mg/dL (0-99); Triglycerides 195 mg/dL (<150)
[2018-01-31] MEDS: lamoTRIgine 100 MG TAB PO SCH ×2 (08:52→21:03)
[2018-01-31] MEDS: HEPARIN SODIUM,PORCINE 5,000 UNIT/ML 1 ML VIAL SQ SCH ×2 (08:52→21:03)
[2018-01-31] MEDS: FAMOTIDINE 20 MG/2 ML VIAL IV SCH (08:52)
[2018-01-31] MEDS: ASPIRIN 81 MG PO SCH (08:52)
[2018-01-31] MEDS: oxyCODONE-APAP 10-325MG 1 EACH TAB PO SCH ×2 (08:55→21:21)
[2018-01-31] MEDS: clonazePAM 1 MG TAB PO SCH ×3 (08:55→21:22)
--- NOTE | 2018-01-31 18:14 | P.PN ---
Subjective Patient is a 52-year-old male with a known history of asthma, fibromyalgia, memory impairment seizure disorder and history of Lyme's disease as well as chronic back pain lower disc degenerative disease came to ER with complaints of left upper extremity pain. Patient says that he woke up at 3 AM today and thought he slept on his hand. Patient is complaining of left arm numbness and tingling went up from the hand. Which is getting worse and made him come to the hospital. Apparently patient has been stressful situation and is going through divorce. She says that he had Lyme's disease about 10 years ago since then he developed fibromyalgia and paresthesias and neurological symptoms. Patient follows with neurology and pain management. UDS is positive for oxycodone opiates and benzodiazepines CT head showed no acute intracranial process Normal CT angiogram of the neck 2-D echocardiogram showed normal ejection fraction Objective - Vital Signs Vital signs: Vital Signs Temp 97.3 F L 01/31/18 16:00 Pulse 75 01/31/18 16:00 Resp 18 01/31/18 16:00 BP 136/95 01/31/18 16:00 Pulse Ox 98 01/31/18 16:00 Intake & Output 01/30/18 01/31/18 01/31/18 18:59 06:59 18:59 Intake Total 690 360 Balance 690 360 Weight 148.5 kg Intake: Oral 690 360 - Exam GENERAL: The patient is alert and oriented x3, not in any acute distress. Well developed, well nourished. HEENT: Pupils are round and equally reacting to light. EOMI. No scleral icterus. No conjunctival pallor. Normocephalic, atraumatic. No pharyngeal erythema. No thyromegaly. CARDIOVASCULAR: S1 and S2 present. No murmurs, rubs, or gallops. PULMONARY: Chest is clear to auscultation, no wheezing or crackles. ABDOMEN: Soft, nontender, nondistended, normoactive bowel sounds. No palpable organomegaly. MUSCULOSKELETAL: No joint swelling or deformity. EXTREMITIES: No cyanosis, clubbing, or pedal edema. NEUROLOGICAL: Gross neurological examination did not reveal any focal deficits. 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 - Labs CBC & Chem 7: 01/30/18 05:22 06/25/18 05:22 Labs: Abnormal Lab Results - Last 24 Hours (Table) 01/31/18 Range/Units 06:26 Triglycerides 195 H (<150) mg/dL HDL Cholesterol 38 L (40-60) mg/dL Assessment and Plan Assessment: Left arm pain with numbness and tingling likely due to cervical radiculopathy. Possible acute CVA cannot be excluded Fibromyalgia and chronic lower extremity pain Asthma not in exacerbation Memory impairment Seizure disorder History of Lyme's disease Degenerative disc disease Chronic low back pain Chronic white matter ischemic changes Stressful situation UDS positive for oxycodone been arrangements and opiates Plan: Patient will be continued on aspirin and statins. CT head is negative for any acute intracranial process. Neurology was consulted for further evaluation. Continue the home pain medications and muscle relaxants. Will follow closely and further recommendations based on the clinical course. Neurology consultation is appreciated. MRI of the brain is pending
--- NOTE | 2018-01-31 18:49 | EEG ---
ELECTROENCEPHALOGRAM REPORT DATE OF SERVICE: 01/31/2018. REASON FOR TESTING: Stroke. DESCRIPTION OF THE PROCEDURE: This EEG was performed using a 21 channel digital electroencephalograph, following international 10-20 system. DESCRIPTION OF THE RECORDING: From the beginning of the tracing, and with patient's eyes closed, the background rhythm was mostly consisting of 9 Hz alpha frequency in the posterior occipital lead. No obvious asymmetry is seen. Photic stimulation was performed with a minimal driving response seen. No pathological waves were elicited. Occasional movement artifact and muscle artifacts are seen. The patient does reach stage II of sleep during the tracing and occasional sleep spindles are seen. No epileptiform discharges were seen. His EKG lead showed a regular rate and rhythm. INTERPRETATION: This asleep and awake EEG can be considered within normal limits. There was no asymmetry seen. No epileptiform discharges were noticed. The absence of epileptiform discharges does not rule out the diagnosis of epilepsy; therefore, clinical correlation is recommended. MMDONN / KRISTEL: [id number] /
--- NOTE | 2018-01-31 20:06 | MR ---
EXAMINATION TYPE: MR brain wo/w marilyn jaida DATE OF EXAM: 01/31/2018 COMPARISON: NONE HISTORY: CVA, Gadavist 7.5 TECHNIQUE: Multiplanar, multisequence images of the brain and brainstem is performed without and with IV contras t, utilizing 7.5 mL intravenous Gadavist . FINDINGS: There are numerous foci of abnormal increased signal at the graff-white matter junction of both cerebr al hemispheres. These measure up to almost 1 cm. The total number is more than 25. The ventricles of normal size. There is no evidence of cortical infarct. Brainstem is intact. Cerebellum appears normal . There is no midline shift. There is no evidence of intracranial hemorrhage. There is no pathologic enhancement. There is minimal cerebral cortical atrophy. The cervical vertebra have normal alignment. Disc spaces are fairly normal. There is mild posterior d isc herniation at C3-4. There is developmentally adequate canal and no spinal stenosis. Canal measure s 8 to 9 mm at C3-4. Cervical spinal cord has fairly normal signal pattern. There is no evidence of e lion. I see no bony destructive process. Posterior elements are intact. There is no cervical paraspin al mass. IMPRESSION: Numerous white matter high signal foci are nonenhancing. This could relate to chronic small vessel i schemia or demyelinating disease. No cortical infarct. Small posterior central and left side C3-4 cervical disc herniation. No spinal stenosis. No evidence of demyelinating disease in the cervical spinal cord.
[2018-01-31] MEDS: ATORVASTATIN 80 MG TAB PO SCH (21:04)
[2018-01-31] MEDS: VERAPAMIL SR 120 MG TABLET.ER PO SCH (21:04)
[2018-01-31] MEDS: DONEPEZIL 10 MG TAB PO SCH (21:05)
[2018-01-31] MEDS: CYCLOBENZAPRINE 10 MG TAB PO SCH (21:05)
[2018-01-31] MEDS: CHOLECALCIFEROL 1,000 UNIT TAB PO SCH (21:21)
[2018-01-31] MEDS: FAMOTIDINE 20 MG TAB PO SCH (21:22)
[2018-02-01] MEDS: SODIUM CHLORIDE 0.9% 1,000 ML IV SCH ×3 (00:12→17:22)
[2018-02-01] MEDS: HEPARIN SODIUM,PORCINE 5,000 UNIT/ML 1 ML VIAL SQ SCH ×2 (11:32→21:30)
[2018-02-01] MEDS: lamoTRIgine 100 MG TAB PO SCH ×2 (11:32→21:29)
[2018-02-01] MEDS: clonazePAM 1 MG TAB PO SCH ×3 (11:32→21:38)
[2018-02-01] MEDS: FAMOTIDINE 20 MG TAB PO SCH ×2 (11:32→21:29)
[2018-02-01] MEDS: oxyCODONE-APAP 10-325MG 1 EACH TAB PO SCH ×2 (11:32→21:37)
[2018-02-01] MEDS: ASPIRIN 81 MG PO SCH (11:32)
--- NOTE | 2018-02-01 15:40 | P.PN ---
Subjective Progress Note Date: 02/01/18 Patient is a pleasant 52-year-old male who is being followed by the neurology service for left upper extremity pain and tingling. Patient also noticed his left arm was weak. Patient came to [facility] for further management and workup. Computed tomography scan of the brain was done which showed no acute process. CT angios of the brain and neck were done which were normal. Patient is known to my service as he is seen in the outpatient setting in the office. Patient has been worked up in the past for demyelinating disease. His last MRI of the brain was stable as compared to previous. Patient states left arm pain and numbness continues but intensity has mildly improved. Patient also states left hand and arm are painful to the touch. MRI of the brain was done this admission which showed no acute infarct. At the time of my evaluation, patient is resting comfortably in bed and appears to be in no acute distress. Objective - Vital Signs Vital signs: Vital Signs Temp 97.2 F L 02/01/18 08:00 Pulse 73 02/01/18 12:00 Resp 18 02/01/18 12:00 BP 118/68 02/01/18 12:00 Pulse Ox 94 L 02/01/18 12:00 Intake & Output 01/31/18 02/01/18 02/01/18 18:59 06:59 18:59 Intake Total 360 720 120 Output Total 2 Balance 360 718 120 Intake: Intake, IV Titration 600 Amount Sodium Chloride 0.9% 1, 600 000 ml @ 100 mls/hr IV . Q10H [facility] Rx#:[id number] Oral 360 120 120 Output: Urine 2 - Exam PHYSICAL EXAM: GENERAL APPEARANCE: Patient is a well-developed, male who appears to be in no acute distress. HEENT: Normocephalic, atraumatic, no facial asymmetry is seen. Neck is supple with no masses felt. CARDIOVASCULAR: Regular rate and rhythm. ABDOMEN: Nontender, nondistended. EXTREMITIES: Show no edema or clubbing. NEUROLOGICAL EXAM: Patient is awake, alert, and oriented 3. Speech and language are normal. Strength is 4/5 in left upper extremity and 5-/5 in all other extremities. Sensory exam showed significant allodynia of the left forearm and hand. No facial asymmetry is noticed on cranial nerve testing. No tremors or seizure-like activity noted. - Labs CBC & Chem 7: 06/25/18 05:22 01/30/18 05:22 Assessment and Plan Plan: Impression: 1. Left upper extremity sensory deficit and weakness 2. Chronic pain syndrome 3. White matter changes Recommendations: Patient continues to have left upper extremity pain, sensory deficit, and allodynia. MRI of the brain showed no acute process. MRI of the brain does not reveal any enhancing lesions. Cervical spine MRI does not explain patient's symptoms. No evidence of demyelinating disease in the cervical spinal cord. I will start the patient on gabapentin 300 mg daily at bedtime with titration up to 300 mg 3 times a day. I will start him on IV Solu- Medrol 250 mg every 8 hours with regular insulin sliding scale. Patient is already on Pepcid every 12 hours. Continue medical management. I will continue to follow with you. Further recommendations to follow. I performed an examination of the patient and discussed the management with the COLOR MATCHER. I have reviewed the COLOR MATCHER notes and agree with the findings and plan of care.
[2018-02-01] MEDS ORDERED: INSULIN REGULAR 100 UNIT/ML VIAL SQ ONE (15:45)
[2018-02-01 16:47] LABS: Glucose,Whole Blood 85 mg/dL (75-99)
--- NOTE | 2018-02-01 20:43 | P.PN ---
Subjective Patient is a 52-year-old male with a known history of asthma, fibromyalgia, memory impairment seizure disorder and history of Lyme's disease as well as chronic back pain lower disc degenerative disease came to ER with complaints of left upper extremity pain. Patient says that he woke up at 3 AM today and thought he slept on his hand. Patient is complaining of left arm numbness and tingling went up from the hand. Which is getting worse and made him come to the hospital. Apparently patient has been stressful situation and is going through divorce. She says that he had Lyme's disease about 10 years ago since then he developed fibromyalgia and paresthesias and neurological symptoms. Patient follows with neurology and pain management. UDS is positive for oxycodone opiates and benzodiazepines CT head showed no acute intracranial process Normal CT angiogram of the neck 2-D echocardiogram showed normal ejection fraction Objective - Vital Signs Vital signs: Vital Signs Temp 97.6 F 02/01/18 16:00 Pulse 69 02/01/18 16:00 Resp 18 02/01/18 16:00 BP 131/78 02/01/18 16:00 Pulse Ox 96 02/01/18 16:00 Intake & Output 02/01/18 02/01/18 02/02/18 06:59 18:59 06:59 Intake Total 720 342 Output Total 2 Balance 718 342 Intake: Intake, IV Titration 600 Amount Sodium Chloride 0.9% 1, 600 000 ml @ 100 mls/hr IV . Q10H [facility] Rx#:[id number] Oral 120 342 Output: Urine 2 - Exam GENERAL: The patient is alert and oriented x3, not in any acute distress. Well developed, well nourished. HEENT: Pupils are round and equally reacting to light. EOMI. No scleral icterus. No conjunctival pallor. Normocephalic, atraumatic. No pharyngeal erythema. No thyromegaly. CARDIOVASCULAR: S1 and S2 present. No murmurs, rubs, or gallops. PULMONARY: Chest is clear to auscultation, no wheezing or crackles. ABDOMEN: Soft, nontender, nondistended, normoactive bowel sounds. No palpable organomegaly. MUSCULOSKELETAL: No joint swelling or deformity. EXTREMITIES: No cyanosis, clubbing, or pedal edema. NEUROLOGICAL: Gross neurological examination did not reveal any focal deficits. 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 - Labs CBC & Chem 7: 01/30/18 05:22 01/30/18 05:22 Assessment and Plan Assessment: Left arm pain with numbness and tingling likely due to cervical radiculopathy. Possible acute CVA cannot be excluded Fibromyalgia and chronic lower extremity pain Asthma not in exacerbation Memory impairment Seizure disorder History of Lyme's disease Degenerative disc disease Chronic low back pain Chronic white matter ischemic changes Stressful situation UDS positive for oxycodone been arrangements and opiates Plan: Patient will be continued on aspirin and statins. CT head is negative for any acute intracranial process. Neurology was consulted for further evaluation. Continue the home pain medications and muscle relaxants. Will follow closely and further recommendations based on the clinical course. Neurology consultation is appreciated. MRI of the brain is pending
[2018-02-01 21:06] LABS: Glucose,Whole Blood 122 mg/dL (75-99)
[2018-02-01] MEDS: ATORVASTATIN 80 MG TAB PO SCH (21:28)
[2018-02-01] MEDS: CHOLECALCIFEROL 1,000 UNIT TAB PO SCH (21:28)
[2018-02-01] MEDS: CYCLOBENZAPRINE 10 MG TAB PO SCH (21:29)
[2018-02-01] MEDS: VERAPAMIL SR 120 MG TABLET.ER PO SCH (21:29)
[2018-02-01] MEDS: DONEPEZIL 10 MG TAB PO SCH (21:29)
[2018-02-01] MEDS: GABAPENTIN 300 MG CAP PO SCH (21:30)
[2018-02-02] MEDS: SODIUM CHLORIDE 0.9% 1,000 ML IV SCH ×2 (04:15→15:10)
[2018-02-02 05:51] LABS: Glucose,Whole Blood 136 mg/dL (75-99)
[2018-02-02] MEDS: INSULIN ASPART 100 UNIT/ML 1 ML 10 ML VIAL SQ SCH ×4 (06:03→21:00)
[2018-02-02] MEDS: lamoTRIgine 100 MG TAB PO SCH ×2 (08:59→20:56)
[2018-02-02] MEDS: FAMOTIDINE 20 MG TAB PO SCH ×2 (08:59→20:56)
[2018-02-02] MEDS: ASPIRIN 81 MG PO SCH (09:00)
[2018-02-02] MEDS: oxyCODONE-APAP 10-325MG 1 EACH TAB PO SCH ×2 (09:00→21:07)
[2018-02-02] MEDS: HEPARIN SODIUM,PORCINE 5,000 UNIT/ML 1 ML VIAL SQ SCH ×2 (09:00→20:57)
[2018-02-02] MEDS: clonazePAM 1 MG TAB PO SCH ×3 (09:00→22:40)
[2018-02-02 11:47] LABS: Glucose,Whole Blood 122 mg/dL (75-99)
[2018-02-02 13:22] LABS: Hemoglobin A1C 4.9 % (4.0-6.0)
--- NOTE | 2018-02-02 16:26 | P.PN ---
Subjective Patient is a 52-year-old male with a known history of asthma, fibromyalgia, memory impairment seizure disorder and history of Lyme's disease as well as chronic back pain lower disc degenerative disease came to ER with complaints of left upper extremity pain. Patient says that he woke up at 3 AM today and thought he slept on his hand. Patient is complaining of left arm numbness and tingling went up from the hand. Which is getting worse and made him come to the hospital. Apparently patient has been stressful situation and is going through divorce. She says that he had Lyme's disease about 10 years ago since then he developed fibromyalgia and paresthesias and neurological symptoms. Patient follows with neurology and pain management. UDS is positive for oxycodone opiates and benzodiazepines CT head showed no acute intracranial process Normal CT angiogram of the neck 2-D echocardiogram showed normal ejection fraction Subjective Patient states that he still have numbness and weakness in his left upper extremity and hand however he says it is better than when he first came. Patient to continue on IV steroids and other medication Objective - Vital Signs Vital signs: Vital Signs Temp 97.0 F L 02/02/18 16:00 Pulse 73 02/02/18 16:00 Resp 18 02/02/18 16:00 BP 137/80 02/02/18 16:00 Pulse Ox 93 L 02/02/18 16:00 Intake & Output 02/01/18 02/02/18 02/02/18 18:59 06:59 18:59 Intake Total 342 1420 Balance 342 1420 Weight 75.6 kg Intake: Intake, IV Titration 900 Amount Sodium Chloride 0.9% 1, 800 000 ml @ 100 mls/hr IV . Q10H [facility] Rx#:[id number] methylPREDNISolone SOD 100 SUCC 250 mg In Sodium Chloride 0.9% 100 ml @ 100 mls/hr IVPB Q8H [facility] Rx#:[id number] Oral 342 520 Other: # Voids 1 - Exam GENERAL: The patient is alert and oriented x3, not in any acute distress. Well developed, well nourished. HEENT: Pupils are round and equally reacting to light. EOMI. No scleral icterus. No conjunctival pallor. Normocephalic, atraumatic. No pharyngeal erythema. No thyromegaly. CARDIOVASCULAR: S1 and S2 present. No murmurs, rubs, or gallops. PULMONARY: Chest is clear to auscultation, no wheezing or crackles. ABDOMEN: Soft, nontender, nondistended, normoactive bowel sounds. No palpable organomegaly. MUSCULOSKELETAL: No joint swelling or deformity. EXTREMITIES: No cyanosis, clubbing, or pedal edema. NEUROLOGICAL: Gross neurological examination did not reveal any focal deficits. 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 - Labs CBC & Chem 7: 01/30/18 05:22 01/30/18 05:22 Labs: Abnormal Lab Results - Last 24 Hours (Table) 02/01/18 02/02/18 02/02/18 Range/Units 21:04 05:50 11:45 POC Glucose (mg/dL) 122 H 136 H 122 H (75-99) mg/dL Assessment and Plan Assessment: Left arm pain with numbness and tingling likely due to cervical radiculopathy. Possible acute CVA cannot be excluded Fibromyalgia and chronic lower extremity pain Asthma not in exacerbation Memory impairment Seizure disorder History of Lyme's disease Degenerative disc disease Chronic low back pain Chronic white matter ischemic changes Stressful situation UDS positive for oxycodone been arrangements and opiates Plan: Patient will be continued on aspirin and statins. CT head is negative for any acute intracranial process. Neurology was consulted for further evaluation. MRI of the brain and cervical spine didn't show any acute process, no enhancing lesion, and no evidence of demyelinating disease. Patient was started on gabapentin and his steroids by neurologist . Continue the home pain medications and muscle relaxants. Will follow closely and further recommendations based on the clinical course. Neurology consultation is appreciated. MRI of the brain is pending Time with Patient: Less than 30
--- NOTE | 2018-02-02 16:46 | P.PN ---
Subjective Progress Note Date: 02/02/18 Patient is a pleasant 52-year-old male who is being followed by the neurology service for left upper extremity pain and tingling. Patient also noticed his left arm was weak. Patient came to [facility] for further management and workup. Computed tomography scan of the brain was done which showed no acute process. CT angios of the brain and neck were done which were normal. Patient is known to my service as he is seen in the outpatient setting in the office. Patient has been worked up in the past for demyelinating disease. His last MRI of the brain was stable as compared to previous. Patient states left arm pain and numbness continues but intensity has mildly improved. Patient also states left hand and arm are painful to the touch. MRI of the brain was done this admission which showed no acute infarct. At the time of my evaluation, patient is resting comfortably in bed and appears to be in no acute distress. 02/02/2018 Patient is a pleasant 52-year-old male who is being followed by the neurology service for left upper extremity pain and tingling. Patient was placed on IV Solu-Medrol 250 mg every 8 hours [id number] and gabapentin 300 mg with titration up to 3 times a day dosing. Patient states left forearm and hand allodynia has improved since starting the steroids. Patient still complains of weakness of the left upper extremity. As you recall, MRI of the brain and cervical spine were negative for any contributing etiology. EEG was done and was normal. At the time of my evaluation, patient's resting comfortably in bed and appears to be in no acute distress. Objective - Vital Signs Vital signs: Vital Signs Temp 97.0 F L 02/02/18 16:00 Pulse 73 02/02/18 16:00 Resp 18 02/02/18 16:00 BP 137/80 02/02/18 16:00 Pulse Ox 93 L 02/02/18 16:00 Intake & Output 02/01/18 02/02/18 02/02/18 18:59 06:59 18:59 Intake Total 342 1420 Balance 342 1420 Weight 75.6 kg Intake: Intake, IV Titration 900 Amount Sodium Chloride 0.9% 1, 800 000 ml @ 100 mls/hr IV . Q10H [facility] Rx#:[id number] methylPREDNISolone SOD 100 SUCC 250 mg In Sodium Chloride 0.9% 100 ml @ 100 mls/hr IVPB Q8H [facility] Rx#:[id number] Oral 342 520 Other: # Voids 1 - Exam PHYSICAL EXAM: GENERAL APPEARANCE: Patient is a well-developed, male who appears to be in no acute distress. HEENT: Normocephalic, atraumatic, no facial asymmetry is seen. Neck is supple with no masses felt. CARDIOVASCULAR: Regular rate and rhythm. ABDOMEN: Nontender, nondistended. EXTREMITIES: Show no edema or clubbing. NEUROLOGICAL EXAM: Patient is awake, alert, and oriented 3. Speech and language are normal. Strength is 4/5 in left upper extremity and 5-/5 in all other extremities. Sensory exam showed significant allodynia of the left forearm and hand but improved from yesterday. No facial asymmetry is noticed on cranial nerve testing. No tremors or seizure-like activity noted. - Labs CBC & Chem 7: 01/30/18 05:22 01/30/18 05:22 Labs: Abnormal Lab Results - Last 24 Hours (Table) 02/01/18 02/02/18 02/02/18 Range/Units 21:04 05:50 11:45 POC Glucose (mg/dL) 122 H 136 H 122 H (75-99) mg/dL Assessment and Plan Plan: Impression: 1. Left upper extremity sensory deficit and weakness 2. Chronic pain syndrome 3. White matter changes Recommendations: Patient continues to have left upper extremity pain, sensory deficit, and allodynia, however, he states this is improved since starting the IV steroids. MRI of the brain showed no acute process. MRI of the brain does not reveal any enhancing lesions. Cervical spine MRI does not explain patient' s symptoms. No evidence of demyelinating disease in the cervical spinal cord. I will continue the patient on gabapentin 300 mg daily at bedtime with titration up to 300 mg 3 times a day. I will continue him on IV Solu-Medrol 250 mg every 8 hours with regular insulin sliding scale. Patient can be switched to oral steroids tomorrow with a 12 day taper. I would order prednisone 10 mg tablets with 4 tabs for 3 days, 3 tabs for 3 days, 2 tablets for 3 days, and 1 tablet for 3 days. He is to follow up in the office within the next 2 weeks. Continue medical management. I will continue to follow with you. Further recommendations to follow. I performed an examination of the patient and discussed the management with the SUPERVISOR PAIRING AND INSPECTING. I have reviewed the SUPERVISOR PAIRING AND INSPECTING notes and agree with the findings and plan of care.
[2018-02-02 16:48] LABS: Glucose,Whole Blood 134 mg/dL (75-99)
[2018-02-02] MEDS: ATORVASTATIN 80 MG TAB PO SCH (20:55)
[2018-02-02] MEDS: CHOLECALCIFEROL 1,000 UNIT TAB PO SCH (20:56)
[2018-02-02] MEDS: DONEPEZIL 10 MG TAB PO SCH (20:56)
[2018-02-02] MEDS: CYCLOBENZAPRINE 10 MG TAB PO SCH (20:56)
[2018-02-02] MEDS: GABAPENTIN 300 MG CAP PO SCH (20:56)
[2018-02-02] MEDS: VERAPAMIL SR 120 MG TABLET.ER PO SCH (20:57)
[2018-02-02 21:01] LABS: Glucose,Whole Blood 132 mg/dL (75-99)
[2018-02-03] MEDS: SODIUM CHLORIDE 0.9% 1,000 ML IV SCH (00:02)
[2018-02-03 05:51] LABS: Glucose,Whole Blood 134 mg/dL (75-99)
[2018-02-03] MEDS: INSULIN ASPART 100 UNIT/ML 1 ML 10 ML VIAL SQ SCH ×3 (06:26→18:17)
[2018-02-03 06:52] LABS: Basophils % (A) 0 %; Eosinophils % (A) 0 %; HCT 40.5 % (39.0-53.0); HGB 13.8 gm/dL (13.0-17.5); Lymphocytes # (A) 1.1 k/uL (1.0-4.8); Lymphocytes % (A) 7 %; MCH 32.5 pg (25.0-35.0); MCHC 34.1 g/dL (31.0-37.0); MCV 95.3 fL (80.0-100.0); Mean Platelet Volume 6.7; Monocytes # (A) 0.3 k/uL (0-1.0); Monocytes % (A) 2 %; Neutrophils # (A) 13.9 k/uL (1.3-7.7); Neutrophils % (A) 91 %; Platelet Count 224 k/uL (150-450); RBC 4.25 m/uL (4.30-5.90); RDW 13.1 % (11.5-15.5); WBC 15.3 k/uL (3.8-10.6)
[2018-02-03 07:09] LABS: Anion Gap 10 mmol/L; Blood Urea Nitrogen 17 mg/dL (9-20); Calcium 8.9 mg/dL (8.4-10.2); Carbon Dioxide 24 mmol/L (22-30); Chloride 104 mmol/L (98-107); Glucose 126 mg/dL (74-99); Potassium 4.2 mmol/L (3.5-5.1); Sodium 138 mmol/L (137-145)
[2018-02-03] MEDS: lamoTRIgine 100 MG TAB PO SCH (10:19)
[2018-02-03] MEDS: HEPARIN SODIUM,PORCINE 5,000 UNIT/ML 1 ML VIAL SQ SCH (10:19)
[2018-02-03] MEDS: FAMOTIDINE 20 MG TAB PO SCH (10:20)
[2018-02-03] MEDS: ASPIRIN 81 MG PO SCH (10:21)
[2018-02-03] MEDS: oxyCODONE-APAP 10-325MG 1 EACH TAB PO SCH (10:44)
[2018-02-03] MEDS: clonazePAM 1 MG TAB PO SCH ×2 (10:44→15:38)
[2018-02-03 11:16] VITALS: RESP 18
[2018-02-03 11:20] LABS: Glucose,Whole Blood 118 mg/dL (75-99)
--- NOTE | 2018-02-03 15:06 | P.PN ---
Subjective Progress Note Date: 02/03/18 Patient is a pleasant 52-year-old male who is being followed by the neurology service for left upper extremity pain and tingling. Patient also noticed his left arm was weak. Patient came to [facility] for further management and workup. Computed tomography scan of the brain was done which showed no acute process. CT angios of the brain and neck were done which were normal. Patient is known to my service as he is seen in the outpatient setting in the office. Patient has been worked up in the past for demyelinating disease. His last MRI of the brain was stable as compared to previous. Patient states left arm pain and numbness continues but intensity has mildly improved. Patient also states left hand and arm are painful to the touch. MRI of the brain was done this admission which showed no acute infarct. At the time of my evaluation, patient is resting comfortably in bed and appears to be in no acute distress. 02/02/2018 Patient is a pleasant 52-year-old male who is being followed by the neurology service for left upper extremity pain and tingling. Patient was placed on IV Solu-Medrol 250 mg every 8 hours [id number] and gabapentin 300 mg with titration up to 3 times a day dosing. Patient states left forearm and hand allodynia has improved since starting the steroids. Patient still complains of weakness of the left upper extremity. As you recall, MRI of the brain and cervical spine were negative for any contributing etiology. EEG was done and was normal. At the time of my evaluation, patient's resting comfortably in bed and appears to be in no acute distress. 02/03/2018 Patient is a pleasant 52-year-old male who is being followed by the neurology service for left upper extremity pain and tingling. MRI of the brain and cervical spine were negative for any contributing etiology. EEG was normal. IV Solu-Medrol was started as well as gabapentin. Patient left upper extremity severe allodynia is significantly improved with IV steroids. Patient' s left upper extremity continues to be weak and he reports left upper extremity continues to be numb. No new or concerning neurological symptoms reported. At the time of my evaluation, patient's resting comfortably in bed and appears to be in no acute distress. Objective - Vital Signs Vital signs: Vital Signs Temp 97.0 F L 02/03/18 11:45 Pulse 70 02/03/18 11:45 Resp 18 02/03/18 11:45 BP 123/78 02/03/18 11:45 Pulse Ox 94 L 02/03/18 11:45 Intake & Output 02/02/18 02/03/18 02/03/18 18:59 06:59 18:59 Intake Total 1660 1750 940 Balance 1660 1750 940 Weight 76.7 kg Intake: Intake, IV Titration 900 1100 100 Amount Sodium Chloride 0.9% 1, 800 1000 000 ml @ 100 mls/hr IV . Q10H [facility] Rx#:[id number] methylPREDNISolone SOD 100 100 100 SUCC 250 mg In Sodium Chloride 0.9% 100 ml @ 100 mls/hr IVPB Q8H [facility] Rx#:[id number] Oral 760 650 840 Other: Voiding Method Toilet Urinal # Voids 2 - Exam PHYSICAL EXAM: GENERAL APPEARANCE: Patient is a well-developed, male who appears to be in no acute distress. HEENT: Normocephalic, atraumatic, no facial asymmetry is seen. Neck is supple with no masses felt. CARDIOVASCULAR: Regular rate and rhythm. ABDOMEN: Nontender, nondistended. EXTREMITIES: Show no edema or clubbing. NEUROLOGICAL EXAM: Patient is awake, alert, and oriented 3. Speech and language are normal. Strength is 4/5 in left upper extremity and 5-/5 in all other extremities. Sensory exam is mildly decreased to left upper extremity and is normal in all other extremities. Left upper extremity allodynia is significantly improved as compared to yesterday. No facial asymmetry is noticed on cranial nerve testing. No tremors or seizure-like activity noted. - Labs CBC & Chem 7: 02/03/18 05:58 02/03/18 05:58 Labs: Abnormal Lab Results - Last 24 Hours (Table) 02/02/18 02/02/18 02/03/18 Range/Units 16:46 20:59 05:49 WBC (3.8-10.6) k/uL RBC (4.30-5.90) m/uL Neutrophils # (1.3-7.7) k/uL Glucose (74-99) mg/dL POC Glucose (mg/dL) 134 H 132 H 134 H (75-99) mg/dL 02/03/18 02/03/18 02/03/18 Range/Units 05:58 05:58 11:19 WBC 15.3 H (3.8-10.6) k/uL RBC 4.25 L (4.30-5.90) m/uL Neutrophils # 13.9 H (1.3-7.7) k/uL Glucose 126 H (74-99) mg/dL POC Glucose (mg/dL) 118 H (75-99) mg/dL Assessment and Plan Plan: Impression: 1. Left upper extremity sensory deficit and weakness 2. Chronic pain syndrome 3. White matter changes Recommendations: Patient reports slight improvement in left upper extremity pain , sensory deficit, and allodynia. MRI of the brain showed no acute process. MRI of the brain does not reveal any enhancing lesions. Cervical spine MRI does not explain patient's symptoms. No evidence of demyelinating disease in the cervical spinal cord. I will continue the patient on gabapentin 300 mg daily at bedtime with titration up to 300 mg 3 times a day. Continuing gabapentin titration can be done in the office. Patient can be switched to oral steroids with a 12 day taper. I would order prednisone 10 mg tablets with 4 tabs for 3 days, 3 tabs for 3 days, 2 tablets for 3 days, and 1 tablet for 3 days. He is to follow up in the office within the next 2 weeks. Continue medical management. Patient is stable from a neurological standpoint for discharge. Patient states he has an appointment on Tuesday with psychologist regarding his depression. I will continue to follow with you on an as-needed basis. Feel free to call with any questions or concerns. I performed an examination of the patient and discussed the management with the SHIPPING RECEIVING MANAGER. I have reviewed the SHIPPING RECEIVING MANAGER notes and agree with the findings and plan of care.
[2018-02-03 16:36] LABS: Glucose,Whole Blood 150 mg/dL (75-99)
--- NOTE | 2018-02-03 17:14 | P.DS ---
Providers Date of admission: 01/30/18 06:09 Expected date of discharge: 02/03/18 Attending physician: Jessica Fish Consults: 01/30/18 06:09 Consult Physician Routine Consulting Provider: William Mackey Consult Reason/Comments: cva Do you want consulting provider notified?: Yes Primary care physician: Yoshi De La [facility] Course: Patient is a 52-year-old male with a known history of asthma, fibromyalgia, memory impairment seizure disorder and history of Lyme's disease as well as chronic back pain lower disc degenerative disease came to ER with complaints of left upper extremity pain. Patient says that he woke up at 3 AM today and thought he slept on his hand. Patient is complaining of left arm numbness and tingling went up from the hand. Which is getting worse and made him come to the hospital. Apparently patient has been stressful situation and is going through divorce. She says that he had Lyme's disease about 10 years ago since then he developed fibromyalgia and paresthesias and neurological symptoms. Patient follows with neurology and pain management. UDS is positive for oxycodone opiates and benzodiazepines CT head showed no acute intracranial process Normal CT angiogram of the neck 2-D echocardiogram showed normal ejection fraction [facility] patient was placed on IV Solu-Medrol to 50 mg every 8 hours and [id number] Neurontin 300 mg 3 times a day; patient's left down forearm and hand pain improved with steroids; MRI of the brain and cervical spine was done which was negative; EEG was unremarkable; patient did show some improvement in left upper extremity severe allodynia; neurology recommended to continue steroids and oral form and tapering doses with a total of 12 day taper and then follow-up with neurology as outpatient for further up titration of Neurontin Patient Condition at Discharge: Fair Plan - Discharge Summary Discharge Rx Participant: No New Discharge Prescriptions: New Atorvastatin [Lipitor] 80 mg PO HS #30 tab Gabapentin [Neurontin] 300 mg PO HS #30 cap Gabapentin [Neurontin] 300 mg PO BID #60 cap predniSONE See Taper PO DIRECTED #30 tab Continue clonazePAM [KlonoPIN] 1 mg PO TID lamoTRIgine 200 mg PO BID Cyclobenzaprine [Flexeril] 10 mg PO HS Donepezil [Aricept] 10 mg PO HS Verapamil HCl [Verapamil ER] 120 mg PO HS Cholecalciferol (Vitamin D3) [Vitamin D3] 2,000 unit PO HS oxyCODONE-APAP 10-325MG [Percocet 10-325 mg] 1 tab PO BID Aspirin EC [Ecotrin Low Dose] 81 mg PO DAILY Discharge Medication List Cyclobenzaprine [Flexeril] 10 mg PO HS 10/01/15 [History] clonazePAM [KlonoPIN] 1 mg PO TID 10/01/15 [History] lamoTRIgine 200 mg PO BID 10/01/15 [History] Cholecalciferol (Vitamin D3) [Vitamin D3] 2,000 unit PO HS 08/11/17 [History] Donepezil [Aricept] 10 mg PO HS 08/11/17 [History] Verapamil HCl [Verapamil ER] 120 mg PO HS 08/11/17 [History] Aspirin EC [Ecotrin Low Dose] 81 mg PO DAILY 01/30/18 [History] oxyCODONE-APAP 10-325MG [Percocet 10-325 mg] 1 tab PO BID 01/30/18 [History] Atorvastatin [Lipitor] 80 mg PO HS #30 tab 02/03/18 [Rx] Gabapentin [Neurontin] 300 mg PO BID #60 cap 02/03/18 [Rx] Gabapentin [Neurontin] 300 mg PO HS #30 cap 02/03/18 [Rx] predniSONE See Taper PO DIRECTED #30 tab 02/03/18 [Rx] Follow up Appointment(s)/Referral(s): Dwayne Belle MD [Primary Care Provider] - 02/15/18 1:30 pm (tuesday) William Mackey MD [STAFF PHYSICIAN] - 1 Week (Office is closed. Please call to schedule appointment) Patient Instructions/Handouts: Stroke (DC) Discharge Disposition: HOME SELF-CARE Pending Studies Pending Results: None
[2018-02-03 17:58] VITALS: BP 132/79; PULSE 73; TEMP 97.2
[2018-02-08] MEDS ORDERED: GABAPENTIN 300 MG CAP PO SCH (09:00)
== END 2018-02-03 18:34 | disposition home or self-care (01) | DRG 74 ==
LOC: EC 05:05 → 6SEL 06:09
PROVIDERS: ADMIT Hospitalist; ATTEND Hospitalist
DX: M54.12 Radiculopathy, cervical region (principal); M79.7 Fibromyalgia; G40.909 Epilepsy, unspecified, not intractable, without status epilepticus; G89.4 Chronic pain syndrome; J45.909 Unspecified asthma, uncomplicated; R41.3 Other amnesia; R53.1 Weakness; G43.909 Migraine, unspecified, not intractable, without status migrainosus; M54.5 Low back pain; R82.5 Elevated urine levels of drugs, medicaments and biological substances; M79.602 Pain in left arm; M79.606 Pain in leg, unspecified; Z63.5 Disruption of family by separation and divorce; Z90.49 Acquired absence of other specified parts of digestive tract; Z88.8 Allergy status to other drugs, medicaments and biological substances; Z86.19 Personal history of other infectious and parasitic diseases; Z79.899 Other long term (current) drug therapy; Z82.49 Family history of ischemic heart disease and other diseases of the circulatory system
CPT/HCPCS: 36415; 70450; 70496; 70498; 70553; 72141; 80048; 80053; 80061; 80164; 80306; 80364; 81003; 82140; 82550; 82553; 83036; 83090; 84484; 85025; 85610; 85730; 93005; 93306; 94760; 95819; 96361; 96374; 99285

== ENCOUNTER 2018-02-12 12:02 | Observation (INO) | payer MEDICARE ==
--- NOTE | 2018-02-12 12:50 | ED ---
General Adult HPI - General Chief complaint: Chest Pain Stated complaint: Diff Breathing, Weakness Time Seen by Provider: 02/12/18 12:14 Source: patient, RN notes reviewed, old records reviewed Mode of arrival: ambulatory Limitations: no limitations - History of Present Illness Initial comments: 52-year-old male with chief complaint of chest pain and left arm pain. Patient was evaluated approximately one week ago for TIA symptoms. He was discharged home from the hospital. He's been having intermittent chest heaviness in the center of his chest and left arm pain. His been ongoing for one week. He does report some dyspnea associated with this. Patient has had no nausea vomiting or diaphoresis. Patient has no known history of CAD. He does have family history including a father who of an [place] at the age of 62. Patient has additional past medical history of fibromyalgia and chronic Lyme disease. - Related Data Home Medications Medication Instructions Recorded Confirmed Cyclobenzaprine [Flexeril] 10 mg PO HS 10/01/15 02/12/18 clonazePAM [KlonoPIN] 1 mg PO TID 10/01/15 02/12/18 lamoTRIgine 200 mg PO BID 10/01/15 02/12/18 Cholecalciferol (Vitamin D3) 2,000 unit PO HS 08/11/17 02/12/18 [Vitamin D3] Donepezil [Aricept] 10 mg PO HS 08/11/17 02/12/18 Verapamil HCl [Verapamil ER] 120 mg PO HS 08/11/17 02/12/18 Aspirin EC [Ecotrin Low Dose] 81 mg PO DAILY 01/30/18 02/12/18 oxyCODONE-APAP 10-325MG [Percocet 1 tab PO BID 01/30/18 02/12/18 10-325 mg] Previous Rx's Medication Instructions Recorded Atorvastatin [Lipitor] 80 mg PO HS #30 tab 02/03/18 Gabapentin [Neurontin] 300 mg PO BID #60 cap 02/03/18 Gabapentin [Neurontin] 300 mg PO HS #30 cap 02/03/18 predniSONE See Taper PO DIRECTED #30 tab 02/03/18 Allergies Allergy/AdvReac Type Severity Reaction Status Date / Time divalproex sodium Allergy Unknown Verified 02/12/18 12:11 [From [facility]] Review of Systems ROS Statement: Those systems with pertinent positive or pertinent negative responses have been documented in the HPI. ROS Other: All systems not noted in ROS Statement are negative. Past Medical History Past Medical History: Asthma, CVA/TIA, Fibromyalgia, Memory Impairment, Seizure Disorder Additional Past Medical History / Comment(s): Lymes disease, DDD, bulging discs , chronic low back pain, brain lesions-scar tissue, last seizure 01/30/18, memory /cognitive problems at times. History of Any Multi-Drug Resistant Organisms: None Reported Past Surgical History: Appendectomy, Cholecystectomy, Orthopedic Surgery Additional Past Surgical History / Comment(s): right knee arthroscopy Past Anesthesia/Blood Transfusion Reactions: No Reported Reaction Past Psychological History: No Psychological Hx Reported Smoking Status: Never smoker - Past Family History Father Family Medical History: Myocardial Infarction ([place]) Additional Family Medical History / Comment(s): Father of a [place] at the age of 62 yrs. Mother History Unknown: Yes Additional Family Medical History / Comment(s): Mother did not discuss her health problems. General Exam Limitations: no limitations General appearance: alert, in no apparent distress Head exam: Present: atraumatic, normocephalic Eye exam: Present: normal appearance, PERRL ENT exam: Present: normal exam Neck exam: Present: normal inspection, tenderness Respiratory exam: Present: normal lung sounds bilaterally. Absent: respiratory distress, wheezes Cardiovascular Exam: Present: regular rate, normal rhythm GI/Abdominal exam: Present: soft. Absent: distended, tenderness Extremities exam: Present: normal inspection, normal capillary refill, other ( Distal pulses intact.). Absent: pedal edema Neurological exam: Present: alert, oriented X3, CN II-XII intact. Absent: motor sensory deficit Psychiatric exam: Present: normal affect, normal mood Skin exam: Present: warm, dry, intact. 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 No ST segment elevation or depression. Medical Decision Making - Medical Decision Making 52-year-old male presenting for evaluation of chest pain over the past one week. EKG is negative for definitive signs of ischemia. Patient does have multiple risk factors. Laboratory studies reveal white blood cell count 15.8 which is unchanged from previous. Hemoglobin stable. Troponin is negative. Lipase mildly elevated, patient has minimal epigastric tenderness, no significant vomiting. Unlikely of the significance of this lab abnormality at this time. Patient is not a daily drinker. Chest x-ray shows cardiomegaly with no acute process. Patient will be placed in observation for serial cardiac enzymes and cardiology consultation. - Lab Data Result diagrams: 02/12/18 12:48 02/12/18 12:48 Lab Results 02/12/18 02/12/18 02/12/18 Range/Units 12:48 12:48 12:48 WBC 15.8 H (3.8-10.6) k/uL RBC 4.47 (4.30-5.90) m/uL Hgb 14.6 (13.0-17.5) gm/dL Hct 43.9 (39.0-53.0) % MCV 98.1 (80.0-100.0) fL MCH 32.6 (25.0-35.0) pg MCHC 33.2 (31.0-37.0) g/dL RDW 13.4 (11.5-15.5) % Plt Count 235 (150-450) k/uL Neutrophils % 87 % Lymphocytes % 7 % Monocytes % 5 % Eosinophils % 0 % Basophils % 0 % Neutrophils # 13.7 H (1.3-7.7) k/uL Lymphocytes # 1.0 (1.0-4.8) k/uL Monocytes # 0.8 (0-1.0) k/uL Eosinophils # 0.0 (0-0.7) k/uL Basophils # 0.0 (0-0.2) k/uL PT (9.0-12.0) sec INR (<1.2) APTT (22.0-30.0) sec Sodium 139 (137-145) mmol/L Potassium 4.4 (3.5-5.1) mmol/L Chloride 102 (98-107) mmol/L Carbon Dioxide 26 (22-30) mmol/L Anion Gap 11 mmol/L BUN 19 (9-20) mg/dL Creatinine 0.90 (0.66-1.25) mg/dL Est GFR (CKD-EPI)AfAm >90 (>60 ml/min/1.73 sqM) Est GFR (CKD-EPI)NonAf >90 (>60 ml/min/1.73 sqM) Glucose 126 H (74-99) mg/dL Calcium 8.5 (8.4-10.2) mg/dL Magnesium 2.2 (1.6-2.3) mg/dL Total Bilirubin 0.6 (0.2-1.3) mg/dL AST 24 (17-59) U/L ALT 57 (21-72) U/L Alkaline Phosphatase 112 (38-126) U/L Total Creatine Kinase 27 L (55-170) U/L CK-MB (CK-2) 0.5 (0.0-2.4) ng/mL CK-MB (CK-2) Rel Index 1.9 Troponin I <0.012 (0.000-0.034) ng/mL NT-Pro-B Natriuret Pep pg/mL Total Protein 5.7 L (6.3-8.2) g/dL Albumin 3.7 (3.5-5.0) g/dL Lipase 408 H (23-300) U/L 02/12/18 02/12/18 Range/Units 12:48 12:48 WBC (3.8-10.6) k/uL RBC (4.30-5.90) m/uL Hgb (13.0-17.5) gm/dL Hct (39.0-53.0) % MCV (80.0-100.0) fL MCH (25.0-35.0) pg MCHC (31.0-37.0) g/dL RDW (11.5-15.5) % Plt Count (150-450) k/uL Neutrophils % % Lymphocytes % % Monocytes % % Eosinophils % % Basophils % % Neutrophils # (1.3-7.7) k/uL Lymphocytes # (1.0-4.8) k/uL Monocytes # (0-1.0) k/uL Eosinophils # (0-0.7) k/uL Basophils # (0-0.2) k/uL PT 10.6 (9.0-12.0) sec INR 1.1 (<1.2) APTT 22.1 (22.0-30.0) sec Sodium (137-145) mmol/L Potassium (3.5-5.1) mmol/L Chloride (98-107) mmol/L Carbon Dioxide (22-30) mmol/L Anion Gap mmol/L BUN (9-20) mg/dL Creatinine (0.66-1.25) mg/dL Est GFR (CKD-EPI)AfAm (>60 ml/min/1.73 sqM) Est GFR (CKD-EPI)NonAf (>60 ml/min/1.73 sqM) Glucose (74-99) mg/dL Calcium (8.4-10.2) mg/dL Magnesium (1.6-2.3) mg/dL Total Bilirubin (0.2-1.3) mg/dL AST (17-59) U/L ALT (21-72) U/L Alkaline Phosphatase (38-126) U/L Total Creatine Kinase (55-170) U/L CK-MB (CK-2) (0.0-2.4) ng/mL CK-MB (CK-2) Rel Index Troponin I (0.000-0.034) ng/mL NT-Pro-B Natriuret Pep 92 pg/mL Total Protein (6.3-8.2) g/dL Albumin (3.5-5.0) g/dL Lipase (23-300) U/L Disposition Clinical Impression: Chest pain Disposition: ADMITTED IP TO THIS [facility] Condition: Serious Is patient prescribed a controlled substance at d/c from ED?: No Referrals: Dwayne Belle MD [Primary Care Provider] - 1-2 days Decision to Admit Reason: Admit from EC Decision Date: 02/12/18 Decision Time: 13:53
[2018-02-12 13:06] LABS: Basophils % (A) 0 %; Eosinophils % (A) 0 %; HCT 43.9 % (39.0-53.0); HGB 14.6 gm/dL (13.0-17.5); Lymphocytes % (A) 7 %; MCH 32.6 pg (25.0-35.0); MCHC 33.2 g/dL (31.0-37.0); MCV 98.1 fL (80.0-100.0); Mean Platelet Volume 6.5; Monocytes # (A) 0.8 k/uL (0-1.0); Monocytes % (A) 5 %; Neutrophils # (A) 13.7 k/uL (1.3-7.7); Neutrophils % (A) 87 %; Platelet Count 235 k/uL (150-450); RBC 4.47 m/uL (4.30-5.90); RDW 13.4 % (11.5-15.5); WBC 15.8 k/uL (3.8-10.6)
--- NOTE | 2018-02-12 13:11 | XR ---
EXAMINATION TYPE: XR chest 2V DATE OF EXAM: 02/12/2018 HISTORY: Pain. REFERENCE: NONE. FINDINGS: The heart is mildly enlarged. The lungs are clear. Pleural spaces are clear. IMPRESSION: MILD CARDIOMEGALY.
[2018-02-12 13:12] LABS: ALT 57 U/L (21-72); AST 24 U/L (17-59); Albumin 3.7 g/dL (3.5-5.0); Alkaline Phosphatase 112 U/L (38-126); Anion Gap 11 mmol/L; Blood Urea Nitrogen 19 mg/dL (9-20); Calcium 8.5 mg/dL (8.4-10.2); Carbon Dioxide 26 mmol/L (22-30); Chloride 102 mmol/L (98-107); Glucose 126 mg/dL (74-99); Lipase 408 U/L (23-300); Magnesium 2.2 mg/dL (1.6-2.3); Potassium 4.4 mmol/L (3.5-5.1); Sodium 139 mmol/L (137-145); Total Bilirubin 0.6 mg/dL (0.2-1.3); Total Protein 5.7 g/dL (6.3-8.2)
[2018-02-12 13:19] LABS: INR 1.1 (<1.2); Partial Thromboplastin Time 22.1 sec (22.0-30.0); Prothrombin Time 10.6 sec (9.0-12.0)
[2018-02-12 13:22] LABS: Creatine Kinase 27 U/L (55-170)
[2018-02-12 13:35] LABS: Creatine Kinase MB 0.5 ng/mL (0.0-2.4); Troponin I <0.012 ng/mL (0.000-0.034)
[2018-02-12] MEDS ORDERED: ACETAMINOPHEN TAB 325 MG TAB PO PRN (13:49)
[2018-02-12] MEDS ORDERED: ASPIRIN 325 MG TAB PO STA (13:49)
[2018-02-12] MEDS ORDERED: NALOXONE 0.4 MG/ML 1 ML VIAL IV PRN ×2 (13:49→13:50)
[2018-02-12] MEDS ORDERED: ONDANSETRON 4 MG/2 ML VIAL IVP PRN (13:50)
[2018-02-12 15:36] VITALS: BMI 28.7
[2018-02-12] MEDS: clonazePAM 1 MG TAB PO SCH ×2 (16:12→21:06)
--- NOTE | 2018-02-12 17:37 | P.HPIM ---
History of Present Illness H&P Date: 02/12/18 Chief Complaint: Left arm pain Patient is a 52-year-old male with a known history of asthma, fibromyalgia, memory impairment seizure disorder and history of Lyme's disease as well as chronic back pain lower disc degenerative disease came to ER with complaints of left upper extremity pain and generalized weakness. Patient says that he has not been eating very well and not sleeping for the last 22 weeks.. Patient also felt some chest pressure as well. No associated nausea vomiting. No headache or dizziness or lightheadedness. Patient was recently admitted to the hospital for left upper activity weakness and sensory loss as well as Allodynia. Patient was given IV steroids and tapering dose of steroids with improvement in symptoms. Patient was also started on Neurontin. Patient denied any fever or chills otherwise. Does have some shortness of breath. Patient does have chronic pain issues and is on follow-up with neurology. Patient says that he had Lyme disease about 10 years ago since since then he developed fibromyalgia and paresthesia and neurological symptoms. Recent stroke workup including CT head 2-D echocardiogram and MRI of the brain and cervical spine were negative. EEG was unremarkable during recent admission. Patient was discharged home on 02/03/2018 Patient has no known history of CAD. He does have family history including a father who of an [place] at the age of 62. Chest x-ray showed mild cardiomegaly and EKG showed normal sinus rhythm. Troponin 1 negative Patient says that he is in lot of stress recently and is going through drivorce. Cardiology was consulted for further evaluation. Review of Systems Constitutional: Patient denies any fever or chills . No generalized weakness or weight loss. Abdomen: Patient denied nausea vomiting and diarrhea and abdominal pain. Cardiovascular: Patient denies any chest pain or short of breath no palpitations. Respiratory: patient denied any cough is from production. No shortness of breath Neurologic: Patient denied any numbness or tingling headache. Musculoskeletal: Patient does have left upper extremity pain and weakness. No joint swelling Skin: Negative Psychiatric: Negative Endocrine: No heat or cold intolerance. No recent weight gain. Genitourinary: No dysuria or hematuria. All other 14 point ROS negative except the above Past Medical History Past Medical History: Asthma, CVA/TIA, Fibromyalgia, Memory Impairment, Seizure Disorder Additional Past Medical History / Comment(s): Lymes disease, DDD, bulging discs , chronic low back pain, brain lesions-scar tissue, last seizure 01/30/18, memory /cognitive problems at times.TIA 01/30/18 History of Any Multi-Drug Resistant Organisms: None Reported Past Surgical History: Appendectomy, Cholecystectomy, Orthopedic Surgery Additional Past Surgical History / Comment(s): right knee arthroscopy Past Anesthesia/Blood Transfusion Reactions: No Reported Reaction Past Psychological History: No Psychological Hx Reported Additional Psychological History / Comment(s): Pt resides alone in his own home. 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 He is independent. He drives. He states he has been losing wt d/t unable to afford food to eat. Smoking Status: Never smoker Past Alcohol Use History: Occasional Additional Past Alcohol Use History / Comment(s): Pt states he will have an occaional cigar but not often. Past Drug Use History: None Reported - Past Family History Father Family Medical History: Myocardial Infarction ([place]) Additional Family Medical History / Comment(s): Father of a [place] at the age of 62 yrs. Mother History Unknown: Yes Additional Family Medical History / Comment(s): Mother did not discuss her health problems. Medications and Allergies Home Medications Medication Instructions Recorded Confirmed Type Cyclobenzaprine [Flexeril] 10 mg PO HS 10/01/15 02/12/18 History clonazePAM [KlonoPIN] 1 mg PO TID 10/01/15 02/12/18 History lamoTRIgine 200 mg PO BID 10/01/15 02/12/18 History Cholecalciferol (Vitamin D3) 2,000 unit PO HS 08/11/17 02/12/18 History [Vitamin D3] Donepezil [Aricept] 10 mg PO HS 08/11/17 02/12/18 History Verapamil HCl [Verapamil ER] 120 mg PO HS 08/11/17 02/12/18 History Aspirin EC [Ecotrin Low Dose] 81 mg PO DAILY 01/30/18 02/12/18 History oxyCODONE-APAP 10-325MG [Percocet 1 tab PO BID 01/30/18 02/12/18 History 10-325 mg] Atorvastatin [Lipitor] 80 mg PO HS #30 tab 02/03/18 02/12/18 Rx predniSONE See Taper PO DIRECTED #30 tab 02/03/18 02/12/18 Rx Gabapentin [Neurontin] See Taper PO DIRECTED 02/12/18 02/12/18 History Allergies Allergy/AdvReac Type Severity Reaction Status Date / Time divalproex sodium Allergy Unknown Verified 02/12/18 14:13 [From [facility]] Physical Exam Vitals: Vital Signs Temp Pulse Pulse Pulse Resp BP BP 02/12/18 16:00 97.5 F L 64 18 129/85 02/12/18 14:56 18 02/12/18 14:15 97.8 F 77 18 119/77 02/12/18 14:00 83 20 123/73 02/12/18 12:51 87 02/12/18 12:07 97.7 F 88 16 125/85 Pulse Ox 02/12/18 16:00 96 02/12/18 14:56 02/12/18 14:15 95 02/12/18 14:00 97 02/12/18 12:51 02/12/18 12:07 98 Intake and Output 02/12/18 02/12/18 02/12/18 06:59 14:59 22:59 Other: Voiding Method Toilet Weight 78.2 kg PHYSICAL EXAMINATION: Patient is lying in the bed comfortably, no acute distress, awake alert and oriented.. HEENT: Normocephalic. Neck is supple. Pupils reactive. Nostrils clear. Oral cavity is moist. Ears reveal no drainage. Neck reveals no JVD, carotid bruits, or thyromegaly. CHEST EXAMINATION: Trachea is central. Symmetrical expansion. Lung wise clear to auscultation and percussion. CARDIAC: Normal S1, S2 with no gallops. No murmurs ABDOMEN: Soft. Bowel sounds normal. No organomegaly. No abdominal bruits. Extremities: reveal no edema. No clubbing or cyanosis Neurologically awake, alert, oriented x3 with well-coordinated movements. Minimal left upper extremities weakness. no sensory deficit Skin: No rash or skin lesions. Psychiatric: Cooperative. Anxious, Nonsuicidal Musculoskeletal: No joint swelling or deformity. Normal range of motion. Results CBC & Chem 7: 02/12/18 12:48 02/12/18 12:48 Labs: Abnormal Lab Results - Last 24 Hours (Table) 02/12/18 02/12/18 02/12/18 Range/Units 12:48 12:48 12:48 WBC 15.8 H (3.8-10.6) k/uL Neutrophils # 13.7 H (1.3-7.7) k/uL Glucose 126 H (74-99) mg/dL Total Creatine Kinase 27 L (55-170) U/L Total Protein 5.7 L (6.3-8.2) g/dL Lipase 408 H (23-300) U/L Thrombosis Risk Factor Assmnt - DVT/VTE Prophylaxis DVT/VTE Prophylaxis: Pharmacologic Prophylaxis ordered - Choose All That Apply Each Factor Represents 1 point: Age 41-60 years, Obesity (BMI >25) Thrombosis Risk Factor Assessment Total Risk Factor Score: 2 Thrombosis Risk Factor Assessment Level: Low Risk Assessment and Plan Assessment: Left upper extremity pain. Likely musculoskeletal. Unlikely ACS Recent admission with left upper extremity pain/sensory deficits/allodynia. Leukocytosis with WBC count 15.8 likely due to recent steroid use. No other source of infection noted Fibromyalgia and chronic pain issues. Chronic low back pain Memory impairment History of CVA/TIA. With minimal upper extremity weakness Seizure disorder Degenerative disc disease DVT prophylaxis Plan: Patient will be continued on telemetry monitoring. Initial EKG and troponins negative. We will continue the pain medication and follow closely. Cardiology was consulted. Further recommendations based on the clinical course. Time with Patient: Greater than 30
[2018-02-12 20:07] LABS: Creatine Kinase 26 U/L (55-170)
[2018-02-12 20:21] LABS: Creatine Kinase MB 0.4 ng/mL (0.0-2.4); Troponin I <0.012 ng/mL (0.000-0.034)
[2018-02-12] MEDS ORDERED: GABAPENTIN 300 MG CAP PO SCH (21:00)
[2018-02-12] MEDS ORDERED: ATORVASTATIN 80 MG TAB PO SCH (21:00)
[2018-02-12] MEDS ORDERED: VERAPAMIL SR 120 MG TABLET.ER PO SCH (21:00)
[2018-02-12] MEDS ORDERED: CYCLOBENZAPRINE 10 MG TAB PO SCH (21:00)
[2018-02-12] MEDS ORDERED: CHOLECALCIFEROL 1,000 UNIT TAB PO SCH (21:00)
[2018-02-12] MEDS: oxyCODONE-APAP 10-325MG 1 EACH TAB PO SCH (21:06)
[2018-02-12] MEDS: lamoTRIgine 100 MG TAB PO SCH (21:06)
[2018-02-13 00:58] LABS: Creatine Kinase 24 U/L (55-170)
[2018-02-13 01:11] LABS: Creatine Kinase MB 0.4 ng/mL (0.0-2.4); Troponin I <0.012 ng/mL (0.000-0.034)
[2018-02-13 02:25] VITALS: RESP 18
[2018-02-13 07:09] LABS: ALT 49 U/L (21-72); AST 21 U/L (17-59); Albumin 3.3 g/dL (3.5-5.0); Alkaline Phosphatase 98 U/L (38-126); Anion Gap 9 mmol/L; Blood Urea Nitrogen 18 mg/dL (9-20); Calcium 8.3 mg/dL (8.4-10.2); Carbon Dioxide 31 mmol/L (22-30); Chloride 101 mmol/L (98-107); Glucose 81 mg/dL (74-99); Potassium 4.7 mmol/L (3.5-5.1); Sodium 141 mmol/L (137-145); Total Bilirubin 0.5 mg/dL (0.2-1.3); Total Protein 5.3 g/dL (6.3-8.2)
[2018-02-13 07:20] LABS: Basophils % (A) 0 %; Eosinophils # (A) 0.1 k/uL (0-0.7); Eosinophils % (A) 1 %; HCT 42.3 % (39.0-53.0); HGB 13.7 gm/dL (13.0-17.5); Lymphocytes # (A) 2.7 k/uL (1.0-4.8); Lymphocytes % (A) 20 %; MCH 31.3 pg (25.0-35.0); MCHC 32.3 g/dL (31.0-37.0); MCV 96.8 fL (80.0-100.0); Mean Platelet Volume 6.6; Monocytes # (A) 0.7 k/uL (0-1.0); Monocytes % (A) 5 %; Neutrophils # (A) 9.5 k/uL (1.3-7.7); Neutrophils % (A) 72 %; Platelet Count 200 k/uL (150-450); RBC 4.37 m/uL (4.30-5.90); RDW 13.2 % (11.5-15.5); WBC 13.3 k/uL (3.8-10.6)
[2018-02-13 07:30] LABS: Creatine Kinase 25 U/L (55-170)
[2018-02-13 07:42] LABS: Creatine Kinase MB 0.3 ng/mL (0.0-2.4); Troponin I <0.012 ng/mL (0.000-0.034)
[2018-02-13] MEDS ORDERED: ASPIRIN 81 MG PO SCH (09:00)
[2018-02-13] MEDS ORDERED: PANTOPRAZOLE 40 MG/10 ML VIAL IV SCH (09:00)
--- NOTE | 2018-02-13 09:15 | P.CRDCN ---
History of Present Illness History of present illness: Patient interviewed and examined. Left shoulder discomfort with radiation down the inner aspect of the arm as well as the outer aspect of the arm with pain that is worsened upon moving the shoulder and tenderness in the left pectoral area just below the clavicle. Normal cardiac enzymes 4 Normal serial ECGs Was recently in the hospital and was just discharged. ECG is unchanged. Echo at that time was normal From a cardiac standpoint is no evidence for an acute myocardial infarction and no further cardiac workup needed at this point We'll sign off Past Medical History Past Medical History: Asthma, CVA/TIA, Fibromyalgia, Memory Impairment, Seizure Disorder Additional Past Medical History / Comment(s): Lymes disease, DDD, bulging discs , chronic low back pain, brain lesions-scar tissue, last seizure 01/30/18, memory /cognitive problems at times.TIA 01/30/18 History of Any Multi-Drug Resistant Organisms: None Reported Past Surgical History: Appendectomy, Cholecystectomy, Orthopedic Surgery Additional Past Surgical History / Comment(s): right knee arthroscopy Past Anesthesia/Blood Transfusion Reactions: No Reported Reaction Past Psychological History: No Psychological Hx Reported Additional Psychological History / Comment(s): Pt resides alone in his own home. 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 He is independent. He drives. He states he has been losing wt d/t unable to afford food to eat. Smoking Status: Never smoker Past Alcohol Use History: Occasional Additional Past Alcohol Use History / Comment(s): Pt states he will have an occaional cigar but not often. Past Drug Use History: None Reported - Past Family History Father Family Medical History: Myocardial Infarction ([place]) Additional Family Medical History / Comment(s): Father of a [place] at the age of 62 yrs. Mother History Unknown: Yes Additional Family Medical History / Comment(s): Mother did not discuss her health problems. Medications and Allergies Home Medications Medication Instructions Recorded Confirmed Type Cyclobenzaprine [Flexeril] 10 mg PO HS 10/01/15 02/12/18 History clonazePAM [KlonoPIN] 1 mg PO TID 10/01/15 02/12/18 History lamoTRIgine 200 mg PO BID 10/01/15 02/12/18 History Cholecalciferol (Vitamin D3) 2,000 unit PO HS 08/11/17 02/12/18 History [Vitamin D3] Donepezil [Aricept] 10 mg PO HS 08/11/17 02/12/18 History Verapamil HCl [Verapamil ER] 120 mg PO HS 08/11/17 02/12/18 History Aspirin EC [Ecotrin Low Dose] 81 mg PO DAILY 01/30/18 02/12/18 History oxyCODONE-APAP 10-325MG [Percocet 1 tab PO BID 01/30/18 02/12/18 History 10-325 mg] Atorvastatin [Lipitor] 80 mg PO HS #30 tab 02/03/18 02/12/18 Rx predniSONE See Taper PO DIRECTED #30 tab 02/03/18 02/12/18 Rx Gabapentin [Neurontin] See Taper PO DIRECTED 02/12/18 02/12/18 History Allergies Allergy/AdvReac Type Severity Reaction Status Date / Time divalproex sodium Allergy Unknown Verified 02/12/18 14:13 [From [facility]] Physical Exam Vitals: Vital Signs Temp Pulse Pulse Pulse Resp BP BP 02/13/18 08:15 97.6 F 71 18 122/86 02/13/18 04:00 98.3 F 64 18 120/78 02/13/18 03:31 18 02/13/18 00:00 98.4 F 73 18 111/74 02/12/18 20:00 97.6 F 78 16 124/78 02/12/18 16:00 97.5 F L 64 18 129/85 02/12/18 14:56 18 02/12/18 14:15 97.8 F 77 18 119/77 02/12/18 14:00 83 20 123/73 02/12/18 12:51 87 02/12/18 12:07 97.7 F 88 16 125/85 Pulse Ox 02/13/18 08:15 95 02/13/18 04:00 95 02/13/18 03:31 02/13/18 00:00 95 02/12/18 20:00 97 02/12/18 16:00 96 02/12/18 14:56 02/12/18 14:15 95 02/12/18 14:00 97 02/12/18 12:51 02/12/18 12:07 98 Intake and Output 02/12/18 02/13/18 02/13/18 22:59 06:59 14:59 Other: Voiding Method Toilet Weight 78.2 kg Results 02/13/18 06:27 02/13/18 06:27 Cardiac Enzymes 02/12/18 02/12/18 02/12/18 Range/Units 12:48 12:48 19:01 AST 24 (17-59) U/L CK-MB (CK-2) 0.5 0.4 (0.0-2.4) ng/mL Troponin I <0.012 <0.012 (0.000-0.034) ng/mL 02/13/18 02/13/18 02/13/18 Range/Units 00:34 06:27 06:27 AST 21 (17-59) U/L CK-MB (CK-2) 0.4 0.3 (0.0-2.4) ng/mL Troponin I <0.012 <0.012 (0.000-0.034) ng/mL Coagulation 02/12/18 Range/Units 12:48 PT 10.6 (9.0-12.0) sec APTT 22.1 (22.0-30.0) sec CBC 02/12/18 02/13/18 Range/Units 12:48 06:27 WBC 15.8 H 13.3 H (3.8-10.6) k/uL RBC 4.47 4.37 (4.30-5.90) m/uL Hgb 14.6 13.7 (13.0-17.5) gm/dL Hct 43.9 42.3 (39.0-53.0) % Plt Count 235 200 (150-450) k/uL Comprehensive Metabolic Panel 02/12/18 02/13/18 Range/Units 12:48 06:27 Sodium 139 141 (137-145) mmol/L Potassium 4.4 4.7 (3.5-5.1) mmol/L Chloride 102 101 (98-107) mmol/L Carbon Dioxide 26 31 H (22-30) mmol/L BUN 19 18 (9-20) mg/dL Creatinine 0.90 0.98 (0.66-1.25) mg/dL Glucose 126 H 81 (74-99) mg/dL Calcium 8.5 8.3 L (8.4-10.2) mg/dL AST 24 21 (17-59) U/L ALT 57 49 (21-72) U/L Alkaline Phosphatase 112 98 (38-126) U/L Total Protein 5.7 L 5.3 L (6.3-8.2) g/dL Albumin 3.7 3.3 L (3.5-5.0) g/dL Current Medications Generic Name Dose Route Start Last Admin Trade Name Freq PRN Reason Stop Dose Admin Acetaminophen 650 mg 02/12/18 13:49 Tylenol Tab PO Q6HR PRN Mild Pain or Fever > 100.5 Aspirin 81 mg 02/13/18 09:00 Aspirin PO DAILY OLIVIA Atorvastatin Calcium 80 mg 02/12/18 21:00 02/12/18 21:05 Lipitor PO 80 mg HS OLIVIA Administration Cholecalciferol 2,000 unit 02/12/18 21:00 02/12/18 21:06 Vitamin D3 PO 2,000 unit HS OLIVIA Administration Clonazepam 1 mg 02/12/18 16:00 02/12/18 21:06 Klonopin PO 1 mg TID OLIVIA Administration Cyclobenzaprine HCl 10 mg 02/12/18 21:00 02/12/18 21:05 Flexeril PO 10 mg HS OLIVIA Administration Gabapentin 300 mg 03/05/18 09:00 Neurontin PO BID OLIVIA Gabapentin 300 mg 02/12/18 21:00 02/12/18 21:05 Neurontin PO 03/04/18 23:00 300 mg HS OLIVIA Administration Lamotrigine 200 mg 02/12/18 21:00 02/12/18 21:06 Lamictal PO 200 mg BID OLIVIA Administration Naloxone HCl 0.2 mg 02/12/18 13:50 Narcan IV Q2M PRN Opioid Reversal Ondansetron HCl 4 mg 02/12/18 13:50 Zofran IVP Q8HR PRN Nausea And Vomiting Oxycodone/Acetaminophen 1 each 02/12/18 21:00 02/12/18 21:06 Percocet 10-325 PO 1 each BID OLIVIA Administration Pantoprazole Sodium 40 mg 02/13/18 09:00 Protonix IV DAILY OLIVIA Verapamil HCl 120 mg 02/12/18 21:00 02/12/18 21:06 Isoptin Sr PO 120 mg HS OLIVIA Administration Intake and Output 02/12/18 02/13/18 02/13/18 22:59 06:59 14:59 Other: Voiding Method Toilet Weight 78.2 kg 02/13/18 06:27 02/13/18 06:27
[2018-02-13] MEDS: clonazePAM 1 MG TAB PO SCH (09:19)
[2018-02-13] MEDS: lamoTRIgine 100 MG TAB PO SCH (09:19)
[2018-02-13] MEDS: oxyCODONE-APAP 10-325MG 1 EACH TAB PO SCH (09:20)
[2018-02-13 11:59] VITALS: BP 115/74; PULSE 76; TEMP 97.8
--- NOTE | 2018-02-13 12:10 | P.CRDCN ---
History of Present Illness History of present illness: Mr. Hanson is a pleasant 52-year-old male past medical history significant for recent TIA, asthma, fibromyalgia, lyme disease, chronic back pain, seizure disorder and memory impairment. He denies history of coronary artery disease and does not follow with a aluminum pourer for any reason. We have been asked to see him in consultation for chest pain. He states he was recently here and diagnosed with TIA with left arm weakness. He states he was discharged home a week ago and his left arm was still hurting. The pain, weakness and numbness has gotten progressively worse over the course of the week. When he moves his arm or tries to lift his arm he gets a tightness across his chest from shoulder to shoulder. He denies shortness of breath, dizziness, palpitations, nausea, vomiting or diaphoresis. EKG reveals sinus mechanism with no acute ST or T-wave abnormalities. Chest xray negative for an acute cardiopulmonary process. Laboratory data reviewed, WBC on admission 15.8, repeat this morning 13.3, hemoglobin 13.7, platelets 200, sodium 141, potassium 4.7, magnesium 2.2, creatinine 0.98, cardiac enzymes negative 4, proBNP 92. Current medications include aspirin 81 mg daily, atorvastatin 80 mg daily, verapamil 120 mg daily, gabapentin, Percocet, Lamictal, Klonopin, Aricept, Flexeril and vitamin D supplementation. Most recent echocardiogram performed January 30 reveals preserved left ventricular systolic function with ejection fraction 55%. Review of Systems At the time of my exam: CONSTITUTIONAL: Denies fever. Denies chills. EYES: Denies blurred vision. Denies vision changes. Denies eye pain. EARS, NOSE, MOUTH & THROAT: Denies headache. Denies sore throat. Denies ear pain. CARDIOVASCULAR: Denies chest pain. Denies shortness of breath. Denies orthopnea. Denies PND. Denies palpitations. RESPIRATORY: Denies cough. GASTROINTESTINAL: Denies abdominal pain. Denies diarrhea. Denies constipation. Denies nausea. Denies vomiting. MUSCULOSKELETAL: Left shoulder and arm discomfort. INTEGUMENTARY: Denies pruitis. Denies rash. NEUROLOGIC: Left arm numbness. Denies tingling. Left arm weakness. PSYCHIATRIC: Denies anxiety. Denies depression. ENDOCRINE: Denies fatigue. Denies weight change. Denies polydipsia. Denies polyurina. GENITOURINARY: Denies burning, hematuria or urgency with micturation. HEMATOLOGIC: Denies history of anemia. Denies bleeding. Past Medical History Past Medical History: Asthma, CVA/TIA, Fibromyalgia, Memory Impairment, Seizure Disorder Additional Past Medical History / Comment(s): Lymes disease, DDD, bulging discs , chronic low back pain, brain lesions-scar tissue, last seizure 01/30/18, memory /cognitive problems at times.TIA 01/30/18 History of Any Multi-Drug Resistant Organisms: None Reported Past Surgical History: Appendectomy, Cholecystectomy, Orthopedic Surgery Additional Past Surgical History / Comment(s): right knee arthroscopy Past Anesthesia/Blood Transfusion Reactions: No Reported Reaction Past Psychological History: No Psychological Hx Reported Additional Psychological History / Comment(s): Pt resides alone in his own home. 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 He is independent. He drives. He states he has been losing wt d/t unable to afford food to eat. Smoking Status: Never smoker Past Alcohol Use History: Occasional Additional Past Alcohol Use History / Comment(s): Pt states he will have an occaional cigar but not often. Past Drug Use History: None Reported - Past Family History Father Family Medical History: Myocardial Infarction (HI) Additional Family Medical History / Comment(s): Father of a HI at the age of 62 yrs. Mother History Unknown: Yes Additional Family Medical History / Comment(s): Mother did not discuss her health problems. Medications and Allergies Home Medications Medication Instructions Recorded Confirmed Type Cyclobenzaprine [Flexeril] 10 mg PO HS 10/01/15 02/12/18 History clonazePAM [KlonoPIN] 1 mg PO TID 10/01/15 02/12/18 History lamoTRIgine 200 mg PO BID 10/01/15 02/12/18 History Cholecalciferol (Vitamin D3) 2,000 unit PO HS 08/11/17 02/12/18 History [Vitamin D3] Donepezil [Aricept] 10 mg PO HS 08/11/17 02/12/18 History Verapamil HCl [Verapamil ER] 120 mg PO HS 08/11/17 02/12/18 History Aspirin EC [Ecotrin Low Dose] 81 mg PO DAILY 01/30/18 02/12/18 History oxyCODONE-APAP 10-325MG [Percocet 1 tab PO BID 01/30/18 02/12/18 History 10-325 mg] Atorvastatin [Lipitor] 80 mg PO HS #30 tab 02/03/18 02/12/18 Rx predniSONE See Taper PO DIRECTED #30 tab 02/03/18 02/12/18 Rx Gabapentin [Neurontin] See Taper PO DIRECTED 02/12/18 02/12/18 History Allergies Allergy/AdvReac Type Severity Reaction Status Date / Time divalproex sodium Allergy Unknown Verified 02/12/18 14:13 [From Depakote] Physical Exam Vitals: Vital Signs Temp Pulse Pulse Pulse Resp BP BP 02/13/18 11:57 97.8 F 76 18 115/74 02/13/18 08:15 97.6 F 71 18 122/86 02/13/18 08:00 71 18 02/13/18 04:00 98.3 F 64 18 120/78 02/13/18 03:31 18 02/13/18 00:00 98.4 F 73 18 111/74 02/12/18 20:00 97.6 F 78 16 124/78 02/12/18 16:00 97.5 F L 64 18 129/85 02/12/18 14:56 18 02/12/18 14:15 97.8 F 77 18 119/77 02/12/18 14:00 83 20 123/73 02/12/18 12:51 87 02/12/18 12:07 97.7 F 88 16 125/85 Pulse Ox 02/13/18 11:57 96 02/13/18 08:15 95 02/13/18 08:00 02/13/18 04:00 95 02/13/18 03:31 02/13/18 00:00 95 02/12/18 20:00 97 02/12/18 16:00 96 02/12/18 14:56 02/12/18 14:15 95 02/12/18 14:00 97 02/12/18 12:51 02/12/18 12:07 98 Intake and Output 02/12/18 02/13/18 02/13/18 22:59 06:59 14:59 Other: Voiding Method Toilet Toilet Weight 78.2 kg Blood pressure 115/74 heart rate 76 afebrile maintaining oxygen saturation on room air GENERAL: This is a 52-year-old male in no apparent distress at the time of my examination. HEENT: Head is atraumatic, normocephalic. Pupils are equal, round. Sclerae anicteric. Conjunctivae are clear. Mucous membranes of the mouth are moist. Neck is supple. There is no jugular venous distention. No carotid bruit is heard. LUNGS: Clear to auscultation no wheezes, rales or rhonchi. No chest wall tenderness is noted on palpation or with deep breathing. HEART: Regular rate and rhythm without murmurs, rubs or gallops. S1 and S2 heard. ABDOMEN: Soft, nontender. Bowel sounds are heard. No organomegaly noted. EXTREMITIES: No evidence of peripheral edema and no calf tenderness noted. VASCULAR: Radial and dorsalis pedis pulses palpated, no evidence of clubbing. NEUROLOGIC: Patient is awake, alert and oriented x3. Results 02/13/18 06:27 02/13/18 06:27 Cardiac Enzymes 02/12/18 02/12/18 02/12/18 Range/Units 12:48 12:48 19:01 AST 24 (17-59) U/L CK-MB (CK-2) 0.5 0.4 (0.0-2.4) ng/mL Troponin I <0.012 <0.012 (0.000-0.034) ng/mL 02/13/18 02/13/18 02/13/18 Range/Units 00:34 06:27 06:27 AST 21 (17-59) U/L CK-MB (CK-2) 0.4 0.3 (0.0-2.4) ng/mL Troponin I <0.012 <0.012 (0.000-0.034) ng/mL Coagulation 02/12/18 Range/Units 12:48 PT 10.6 (9.0-12.0) sec APTT 22.1 (22.0-30.0) sec CBC 02/12/18 02/13/18 Range/Units 12:48 06:27 WBC 15.8 H 13.3 H (3.8-10.6) k/uL RBC 4.47 4.37 (4.30-5.90) m/uL Hgb 14.6 13.7 (13.0-17.5) gm/dL Hct 43.9 42.3 (39.0-53.0) % Plt Count 235 200 (150-450) k/uL Comprehensive Metabolic Panel 02/12/18 02/13/18 Range/Units 12:48 06:27 Sodium 139 141 (137-145) mmol/L Potassium 4.4 4.7 (3.5-5.1) mmol/L Chloride 102 101 (98-107) mmol/L Carbon Dioxide 26 31 H (22-30) mmol/L BUN 19 18 (9-20) mg/dL Creatinine 0.90 0.98 (0.66-1.25) mg/dL Glucose 126 H 81 (74-99) mg/dL Calcium 8.5 8.3 L (8.4-10.2) mg/dL AST 24 21 (17-59) U/L ALT 57 49 (21-72) U/L Alkaline Phosphatase 112 98 (38-126) U/L Total Protein 5.7 L 5.3 L (6.3-8.2) g/dL Albumin 3.7 3.3 L (3.5-5.0) g/dL Current Medications Generic Name Dose Route Start Last Admin Trade Name Freq PRN Reason Stop Dose Admin Acetaminophen 650 mg 02/12/18 13:49 Tylenol Tab PO Q6HR PRN Mild Pain or Fever > 100.5 Aspirin 81 mg 02/13/18 09:00 02/13/18 09:19 Aspirin PO 81 mg DAILY OLIVIA Administration Atorvastatin Calcium 80 mg 02/12/18 21:00 02/12/18 21:05 Lipitor PO 80 mg HS OLIVIA Administration Cholecalciferol 2,000 unit 02/12/18 21:00 02/12/18 21:06 Vitamin D3 PO 2,000 unit HS OLIVIA Administration Clonazepam 1 mg 02/12/18 16:00 02/13/18 09:19 Klonopin PO 1 mg TID OLIVIA Administration Cyclobenzaprine HCl 10 mg 02/12/18 21:00 02/12/18 21:05 Flexeril PO 10 mg HS OLIVIA Administration Gabapentin 300 mg 03/05/18 09:00 Neurontin PO BID OLIVIA Gabapentin 300 mg 02/12/18 21:00 02/12/18 21:05 Neurontin PO 03/04/18 23:00 300 mg HS OLIVIA Administration Lamotrigine 200 mg 02/12/18 21:00 02/13/18 09:19 Lamictal PO 200 mg BID OLIVIA Administration Naloxone HCl 0.2 mg 02/12/18 13:50 Narcan IV Q2M PRN Opioid Reversal Ondansetron HCl 4 mg 02/12/18 13:50 Zofran IVP Q8HR PRN Nausea And Vomiting Oxycodone/Acetaminophen 1 each 02/12/18 21:00 02/13/18 09:20 Percocet 10-325 PO 1 each BID OLIVIA Administration Pantoprazole Sodium 40 mg 02/13/18 09:00 02/13/18 09:21 Protonix IV 40 mg DAILY OLIVIA Administration Verapamil HCl 120 mg 02/12/18 21:00 02/12/18 21:06 Isoptin Sr PO 120 mg HS OLIVIA Administration Intake and Output 02/12/18 02/13/18 02/13/18 22:59 06:59 14:59 Other: Voiding Method Toilet Toilet Weight 78.2 kg 02/13/18 06:27 02/13/18 06:27 Assessment and Plan Assessment: ASSESSMENT Chest pain, atypical. Reproducible with movement of left arm. An acute coronary event has been ruled out with no EKG evidence of ischemia and negative cardiac enzymes. History of recent TIA. Left upper extremity pain, weakness and numbness. History of seizures Fibromyalgia PLAN Acute coronary event has been ruled out. No further cardiac evaluation required at this time. Ongoing medical management of left upper extremity weakness. Thank you kindly for this consultation. Nurse Practitioner note has been reviewed, I agree with a documented findings and plan of care. Patient was seen and examined.
--- NOTE | 2018-02-13 23:32 | P.DS ---
Providers Date of admission: 02/12/18 13:50 Expected date of discharge: 02/13/18 Attending physician: Jessica Fish Consults: 02/12/18 13:49 Consult Physician Routine Consulting Provider: Henry Torres Consult Reason/Comments: Chest Pain Do you want consulting provider notified?: Yes Primary care physician: Yoshi Rice Hospital Course: Discharge diagnosis Left upper extremity pain. Likely musculoskeletal. Unlikely ACS. Ruled out. Improved now. Recent admission with left upper extremity pain/sensory deficits/allodynia. Leukocytosis with WBC count 15.8 likely due to recent steroid use. No other source of infection noted Fibromyalgia and chronic pain issues. Chronic low back pain Memory impairment History of CVA/TIA. With minimal upper extremity weakness Seizure disorder Degenerative disc disease DVT prophylaxis Hospital course Patient is a 52-year-old male with a known history of asthma, fibromyalgia, memory impairment seizure disorder and history of Lyme's disease as well as chronic back pain lower disc degenerative disease came to ER with complaints of left upper extremity pain and generalized weakness. Patient says that he has not been eating very well and not sleeping for the last 22 weeks.. Patient also felt some chest pressure as well. No associated nausea vomiting. No headache or dizziness or lightheadedness. Patient was recently admitted to the hospital for left upper activity weakness and sensory loss as well as Allodynia. Patient was given IV steroids and tapering dose of steroids with improvement in symptoms. Patient was also started on Neurontin. Patient denied any fever or chills otherwise. Does have some shortness of breath. Patient does have chronic pain issues and is on follow-up with neurology. Patient says that he had Lyme disease about 10 years ago since since then he developed fibromyalgia and paresthesia and neurological symptoms. Recent stroke workup including CT head 2-D echocardiogram and MRI of the brain and cervical spine were negative. EEG was unremarkable during recent admission. Patient was discharged home on 02/03/2018 Patient has no known history of CAD. He does have family history including a father who of an NC at the age of 62. Chest x-ray showed mild cardiomegaly and EKG showed normal sinus rhythm. Troponin 1 negative Patient says that he is in lot of stress recently and is going through drivorce. Cardiology was consulted for further evaluation. 02/13/2018 Patient was continued on Stewart and Neurontin. Left upper extremities pain is much improved now. Able to lift his hand. Otherwise patient was seen by cardiology and recommended no further workup at this time. Otherwise medically stable to be discharged home. Plan: Patient was continued on telemetry monitoring. Serial EKG and troponins negative. Continued the pain medication and followed closely. Cardiology was consulted. Recommended no further workup at this time. Patient was advised to follow with primary care physician in 1 to 3 days. Assessment physical examination was done and vitals reviewed. Vital Signs - 24 hr 02/13/18 02/13/18 02/13/18 00:00 03:31 04:00 Temperature 98.4 F 98.3 F Pulse Rate [ 73 64 Pulse Oximetery ] Respiratory 18 18 18 Rate Blood Pressure 111/74 120/78 [Right Arm] O2 Sat by Pulse 95 95 Oximetry 02/13/18 02/13/18 02/13/18 08:00 08:15 11:57 Temperature 97.6 F 97.8 F Pulse Rate [ 71 71 76 Pulse Oximetery ] Respiratory 18 18 18 Rate Blood Pressure 122/86 115/74 [Right Arm] O2 Sat by Pulse 95 96 Oximetry 02/13/18 12:00 Temperature Pulse Rate [ 76 Pulse Oximetery ] Respiratory 18 Rate Blood Pressure [Right Arm] O2 Sat by Pulse Oximetry Patient Condition at Discharge: Serious Plan - Discharge Summary Discharge Rx Participant: No New Discharge Prescriptions: Continue RX: clonazePAM [KlonoPIN] 1 mg PO TID RX: lamoTRIgine 200 mg PO BID RX: Cyclobenzaprine [Flexeril] 10 mg PO HS RX: Donepezil [Aricept] 10 mg PO HS RX: Verapamil HCl [Verapamil ER] 120 mg PO HS RX: Cholecalciferol (Vitamin D3) [Vitamin D3] 2,000 unit PO HS RX: oxyCODONE-APAP 10-325MG [Percocet 10-325 mg] 1 tab PO BID RX: Aspirin EC [Ecotrin Low Dose] 81 mg PO DAILY RX: Atorvastatin [Lipitor] 80 mg PO HS #30 tab RX: Gabapentin [Neurontin] See Taper PO DIRECTED Discontinued RX: predniSONE See Taper PO DIRECTED #30 tab Discharge Medication List RX: Cyclobenzaprine [Flexeril] 10 mg PO HS 10/01/15 [History] RX: clonazePAM [KlonoPIN] 1 mg PO TID 10/01/15 [History] RX: lamoTRIgine 200 mg PO BID 10/01/15 [History] RX: Cholecalciferol (Vitamin D3) [Vitamin D3] 2,000 unit PO HS 08/11/17 [History ] RX: Donepezil [Aricept] 10 mg PO HS 08/11/17 [History] RX: Verapamil HCl [Verapamil ER] 120 mg PO HS 08/11/17 [History] RX: Aspirin EC [Ecotrin Low Dose] 81 mg PO DAILY 01/30/18 [History] RX: oxyCODONE-APAP 10-325MG [Percocet 10-325 mg] 1 tab PO BID 01/30/18 [History] RX: Atorvastatin [Lipitor] 80 mg PO HS #30 tab 02/03/18 [Rx] RX: Gabapentin [Neurontin] See Taper PO DIRECTED 02/12/18 [History] Follow up Appointment(s)/Referral(s): Dwayne Belle MD [Primary Care Provider] - 1-2 days Discharge Disposition: HOME SELF-CARE
--- NOTE | 2018-02-16 14:02 | CDI ---
Outpatient Documentation Clarification Form Date: 02-16-18 CDS/Post Closer Name: RADHA HERNANDEZ Phone: If you have question, contact Mellissa Graves, [employer] at M-F 8:30 am to 6pm. Patient Name: JEANNETTE CHI Admit Date: 02-12-18 Discharge Date: 02-13-18 ATTENTION: The Clinical Documentation Specialists (CDI) and [facility] Coding Staff appreciate your assistance in clarifying documentation. Please respond to the clarification below the line at the bottom and electronically sign. The CDI & [facility] Coding staff will review the response and follow-up if needed. Please note: Queries are made part of the Legal Health Record. If you have any questions, please contact the author of this message via ITS or call the [employer]. , If the patient's left arm weakness is not a residual of previous TIA/CVA, please specify the cause of the weakness, if known, below the line. for example: weakness residual of TIA/CVA weakness due to multifactorial diagnoses unknown cause of weakness weakness due to Thank you for your time and consideration, Radha Hernandez weakness residual of TIA/CVA MTDD
[2018-03-05] MEDS ORDERED: GABAPENTIN 300 MG CAP PO SCH (09:00)
== END 2018-02-13 15:48 | disposition home or self-care (01) ==
LOC: EC 12:02 → 3OBS 13:50
PROVIDERS: ADMIT Hospitalist; ATTEND Hospitalist
DX: M79.602 Pain in left arm (principal); R07.89 Other chest pain; D72.829 Elevated white blood cell count, unspecified; M79.7 Fibromyalgia; G89.29 Other chronic pain; M54.5 Low back pain; R41.3 Other amnesia; G40.909 Epilepsy, unspecified, not intractable, without status epilepticus; I69.854 Hemiplegia and hemiparesis following other cerebrovascular disease affecting left non-dominant side; R74.8 Abnormal levels of other serum enzymes; J45.909 Unspecified asthma, uncomplicated; A69.20 Lyme disease, unspecified; Z82.49 Family history of ischemic heart disease and other diseases of the circulatory system; Z79.899 Other long term (current) drug therapy; Z79.82 Long term (current) use of aspirin; Z79.891 Long term (current) use of opiate analgesic; Z88.8 Allergy status to other drugs, medicaments and biological substances; Z90.49 Acquired absence of other specified parts of digestive tract; E66.9 Obesity, unspecified; Z68.28 Body mass index [BMI] 28.0-28.9, adult
CPT/HCPCS: 99285; 96374; 36415; 93005; 83880; 80053 ×2; 82550 ×2; 82553 ×2; 83690; 83735; 84484 ×2; 85025 ×2; 85610; 85730; 71046; G0378 ×2; C9113

== ENCOUNTER 2018-08-23 09:05 | Emergency (ER) | payer MEDICARE ==
[2018-08-23] MEDS ORDERED: IPRATROPIUM-ALBUTEROL 3 ML NEB INHALATION STA (10:36)
[2018-08-23] MEDS ORDERED: methylPREDNISolone SOD SUCCI 125 MG/2 ML VIAL IV STA (10:36)
--- NOTE | 2018-08-23 10:40 | ED ---
SOB HPI - General Chief Complaint: Shortness of Breath Stated Complaint: not sleeping, diff breathing Time Seen by Provider: 08/23/18 09:52 Source: patient, RN notes reviewed Mode of arrival: ambulatory Limitations: no limitations - History of Present Illness Initial Comments: This 52-year-old male history of asthma who presents with complaints of shortness of breath. He Is sleeping he had difficulty breathing started last night. Some chest tightness associated with shortness of breath feels somewhat chilled but has no sweats or fever and report no nausea vomiting or other symptoms. No phlegm production with cough. MD Complaint: shortness of breath - Related Data Home Medications Medication Instructions Recorded Confirmed lamoTRIgine 200 mg PO BID 10/01/15 08/23/18 Donepezil [Aricept] 10 mg PO HS 08/11/17 08/23/18 Aspirin EC [Ecotrin Low Dose] 81 mg PO DAILY 01/30/18 08/23/18 oxyCODONE-APAP 10-325MG [Percocet 1 tab PO BID 01/30/18 08/23/18 10-325 mg] Previous Rx's Medication Instructions Recorded Ipratropium/Albuterol Sulfate 2 puff INHALATION QID PRN #1 08/23/18 [Combivent Respimat Inhaler] inhaler predniSONE 20 mg PO BID #10 tab 08/23/18 Allergies Allergy/AdvReac Type Severity Reaction Status Date / Time divalproex sodium Allergy Unknown Verified 08/23/18 09:41 [facility] Review of Systems ROS Statement: Those systems with pertinent positive or pertinent negative responses have been documented in the HPI. ROS Other: All systems not noted in ROS Statement are negative. Past Medical History Past Medical History: Asthma, CVA/TIA, Fibromyalgia, Memory Impairment, Seizure Disorder Additional Past Medical History / Comment(s): Lymes disease, DDD, bulging discs , chronic low back pain, brain lesions-scar tissue, last seizure 01/30/18, memory /cognitive problems at times.TIA 01/30/18 History of Any Multi-Drug Resistant Organisms: None Reported Past Surgical History: Appendectomy, Cholecystectomy, Orthopedic Surgery Additional Past Surgical History / Comment(s): right knee arthroscopy Past Anesthesia/Blood Transfusion Reactions: No Reported Reaction Past Psychological History: Anxiety, Depression Smoking Status: Never smoker Past Alcohol Use History: Occasional Past Drug Use History: None Reported - Past Family History Father Family Medical History: Myocardial Infarction (NH) Additional Family Medical History / Comment(s): Father of a NH at the age of 62 yrs. Mother History Unknown: Yes Additional Family Medical History / Comment(s): Mother did not discuss her health problems. General Exam - General Exam Comments Initial Comments: Is a well-developed well-nourished awake alert oriented 3 male Limitations: no limitations General appearance: alert, anxious Head exam: Present: atraumatic, normocephalic, normal inspection Eye exam: Present: normal appearance, PERRL, EOMI. Absent: scleral icterus, conjunctival injection, periorbital swelling ENT exam: Present: normal exam, mucous membranes moist Neck exam: Present: normal inspection. Absent: tenderness, meningismus, lymphadenopathy Respiratory exam: Present: wheezes, chest wall tenderness, decreased breath sounds. Absent: respiratory distress, rales, rhonchi, stridor Cardiovascular Exam: Present: regular rate, normal rhythm, normal heart sounds. Absent: systolic murmur, diastolic murmur, rubs, gallop, clicks GI/Abdominal exam: Present: soft, normal bowel sounds. Absent: distended, tenderness, guarding, rebound, rigid Extremities exam: Present: normal inspection, full ROM, normal capillary refill. Absent: tenderness, pedal edema, joint swelling, calf tenderness Back exam: Present: normal inspection Neurological exam: Present: alert, oriented X3, CN II-XII intact Psychiatric exam: Present: normal affect, normal mood Skin exam: Present: warm, dry, intact, normal color. Absent: rash Course Vital Signs 08/23/18 08/23/18 08/23/18 09:11 09:14 10:58 Temperature 98.1 F Pulse Rate 75 65 Respiratory 18 20 Rate Blood Pressure 153/95 O2 Sat by Pulse 100 Oximetry 08/23/18 08/23/18 11:07 12:10 Temperature Pulse Rate 68 88 Respiratory 18 Rate Blood Pressure 123/85 O2 Sat by Pulse 97 Oximetry Medical Decision Making - Medical Decision Making I did reevaluate patient several occasions he is improved the presentation is consistent with asthma exacerbation be placed on an inhaler and oral steroids he states he does not have an inhaler at home. - Lab Data Result diagrams: 08/23/18 10:30 08/23/18 10:30 Lab Results 08/23/18 08/23/18 08/23/18 Range/Units 10:30 10:30 10:30 WBC 6.5 (3.8-10.6) k/uL RBC 4.66 (4.30-5.90) m/uL Hgb 14.9 (13.0-17.5) gm/dL Hct 42.7 (39.0-53.0) % MCV 91.7 (80.0-100.0) fL MCH 32.0 (25.0-35.0) pg MCHC 34.9 (31.0-37.0) g/dL RDW 12.8 (11.5-15.5) % Plt Count 213 (150-450) k/uL Neutrophils % 71 % Lymphocytes % 19 % Monocytes % 6 % Eosinophils % 2 % Basophils % 1 % Neutrophils # 4.7 (1.3-7.7) k/uL Lymphocytes # 1.2 (1.0-4.8) k/uL Monocytes # 0.4 (0-1.0) k/uL Eosinophils # 0.1 (0-0.7) k/uL Basophils # 0.0 (0-0.2) k/uL PT (9.0-12.0) sec INR (<1.2) APTT (22.0-30.0) sec Sodium 140 (137-145) mmol/L Potassium 4.3 (3.5-5.1) mmol/L Chloride 107 (98-107) mmol/L Carbon Dioxide 26 (22-30) mmol/L Anion Gap 7 mmol/L BUN 12 (9-20) mg/dL Creatinine 1.15 (0.66-1.25) mg/dL Est GFR (CKD-EPI)AfAm 84 (>60 ml/min/1.73 sqM) Est GFR (CKD-EPI)NonAf 72 (>60 ml/min/1.73 sqM) Glucose 100 H (74-99) mg/dL Calcium 9.4 (8.4-10.2) mg/dL Magnesium 2.1 (1.6-2.3) mg/dL Total Bilirubin 0.7 (0.2-1.3) mg/dL AST 25 (17-59) U/L ALT 35 (21-72) U/L Alkaline Phosphatase 87 (38-126) U/L Total Creatine Kinase 54 L (55-170) U/L CK-MB (CK-2) <0.2 (0.0-2.4) ng/mL CK-MB (CK-2) Rel Index Troponin I <0.012 (0.000-0.034) ng/mL NT-Pro-B Natriuret Pep pg/mL Total Protein 6.5 (6.3-8.2) g/dL Albumin 4.4 (3.5-5.0) g/dL 08/23/18 08/23/18 Range/Units 10:30 10:30 WBC (3.8-10.6) k/uL RBC (4.30-5.90) m/uL Hgb (13.0-17.5) gm/dL Hct (39.0-53.0) % MCV (80.0-100.0) fL MCH (25.0-35.0) pg MCHC (31.0-37.0) g/dL RDW (11.5-15.5) % Plt Count (150-450) k/uL Neutrophils % % Lymphocytes % % Monocytes % % Eosinophils % % Basophils % % Neutrophils # (1.3-7.7) k/uL Lymphocytes # (1.0-4.8) k/uL Monocytes # (0-1.0) k/uL Eosinophils # (0-0.7) k/uL Basophils # (0-0.2) k/uL PT 10.1 (9.0-12.0) sec INR 0.9 (<1.2) APTT 23.9 (22.0-30.0) sec Sodium (137-145) mmol/L Potassium (3.5-5.1) mmol/L Chloride (98-107) mmol/L Carbon Dioxide (22-30) mmol/L Anion Gap mmol/L BUN (9-20) mg/dL Creatinine (0.66-1.25) mg/dL Est GFR (CKD-EPI)AfAm (>60 ml/min/1.73 sqM) Est GFR (CKD-EPI)NonAf (>60 ml/min/1.73 sqM) Glucose (74-99) mg/dL Calcium (8.4-10.2) mg/dL Magnesium (1.6-2.3) mg/dL Total Bilirubin (0.2-1.3) mg/dL AST (17-59) U/L ALT (21-72) U/L Alkaline Phosphatase (38-126) U/L Total Creatine Kinase (55-170) U/L CK-MB (CK-2) (0.0-2.4) ng/mL CK-MB (CK-2) Rel Index Troponin I (0.000-0.034) ng/mL NT-Pro-B Natriuret Pep 26 pg/mL Total Protein (6.3-8.2) g/dL Albumin (3.5-5.0) g/dL - EKG Data -: EKG Interpreted by Me (Sinus rhythm a 69. Interval 156 QRS duration 86 QT since QTC 446/477 nonsp) - Radiology Data Radiology results: report reviewed (No acute findings.), image reviewed Disposition Clinical Impression: Acute severe exacerbation of asthma Disposition: HOME SELF-CARE Condition: Good Instructions: Asthma (ED) Prescriptions: Ipratropium/Albuterol Sulfate [Combivent Respimat Inhaler] 2 puff INHALATION QID PRN #1 inhaler PRN Reason: Dyspnea predniSONE 20 mg PO BID #10 tab Is patient prescribed a controlled substance at d/c from ED?: No Referrals: Dwayne Belle MD [Primary Care Provider] - 1-2 days
[2018-08-23 10:55] LABS: Basophils % (A) 1 %; Eosinophils # (A) 0.1 k/uL (0-0.7); Eosinophils % (A) 2 %; HCT 42.7 % (39.0-53.0); HGB 14.9 gm/dL (13.0-17.5); Lymphocytes # (A) 1.2 k/uL (1.0-4.8); Lymphocytes % (A) 19 %; MCHC 34.9 g/dL (31.0-37.0); MCV 91.7 fL (80.0-100.0); Mean Platelet Volume 6.7; Monocytes # (A) 0.4 k/uL (0-1.0); Monocytes % (A) 6 %; Neutrophils # (A) 4.7 k/uL (1.3-7.7); Neutrophils % (A) 71 %; Platelet Count 213 k/uL (150-450); RBC 4.66 m/uL (4.30-5.90); RDW 12.8 % (11.5-15.5); WBC 6.5 k/uL (3.8-10.6)
[2018-08-23 11:02] LABS: INR 0.9 (<1.2); Partial Thromboplastin Time 23.9 sec (22.0-30.0); Prothrombin Time 10.1 sec (9.0-12.0)
[2018-08-23 11:07] LABS: Albumin 4.4 g/dL (3.5-5.0); Calcium 9.4 mg/dL (8.4-10.2); Magnesium 2.1 mg/dL (1.6-2.3); Potassium 4.3 mmol/L (3.5-5.1); Total Bilirubin 0.7 mg/dL (0.2-1.3); Total Protein 6.5 g/dL (6.3-8.2)
[2018-08-23 11:16] LABS: Creatine Kinase 54 U/L (55-170)
[2018-08-23 11:29] LABS: Creatine Kinase MB <0.2 ng/mL (0.0-2.4); Troponin I <0.012 ng/mL (0.000-0.034)
--- NOTE | 2018-08-23 11:29 | XR ---
EXAMINATION TYPE: XR chest 2V DATE OF EXAM: 08/23/2018 CLINICAL HISTORY: Difficulty in breathing. TECHNIQUE: Frontal and lateral views of the chest are obtained. COMPARISON: Prior chest x-ray February 12, 2018 FINDINGS: Somewhat low lung volumes are seen. There is no focal air space opacity, pleural effusion, or pneumothorax seen. The cardiac silhouette size remains enlarged. Cholecystectomy clips are red emonstrated seen best on lateral view. The osseous structures are intact. IMPRESSION: Cardiomegaly without acute pulmonary process. No significant change from prior chest x-ra y.
[2018-08-23 12:32] VITALS: RESP 18
[2018-08-23 14:13] VITALS: BP 149/93; PULSE 83; TEMP 97.7
== END 2018-08-23 14:12 | disposition home or self-care (01) ==
LOC: EC 09:05
DX: J45.901 Unspecified asthma with (acute) exacerbation (principal); G40.909 Epilepsy, unspecified, not intractable, without status epilepticus; G89.29 Other chronic pain; G31.84 Mild cognitive impairment of uncertain or unknown etiology; F32.9 Major depressive disorder, single episode, unspecified; F41.9 Anxiety disorder, unspecified; Z88.8 Allergy status to other drugs, medicaments and biological substances; Z79.82 Long term (current) use of aspirin; Z79.891 Long term (current) use of opiate analgesic; Z79.899 Other long term (current) drug therapy; Z82.49 Family history of ischemic heart disease and other diseases of the circulatory system
CPT/HCPCS: 36415; 94640; 93005; 83880; 80053; 82550; 82553; 83735; 84484; 85025; 85610; 85730; 71046; 99285; 96374; J2930

== ENCOUNTER → 2018-09-05 | Outpatient (CLI) | payer MEDICARE ==
[2018-09-05 12:28] LABS: Basophils % (A) 0 %; Eosinophils # (A) 0.1 k/uL (0-0.7); Eosinophils % (A) 1 %; HCT 46.9 % (39.0-53.0); HGB 15.9 gm/dL (13.0-17.5); Lymphocytes # (A) 1.5 k/uL (1.0-4.8); Lymphocytes % (A) 15 %; MCH 31.6 pg (25.0-35.0); MCHC 33.9 g/dL (31.0-37.0); MCV 93.4 fL (80.0-100.0); Mean Platelet Volume 6.6; Monocytes # (A) 0.4 k/uL (0-1.0); Monocytes % (A) 4 %; Neutrophils # (A) 7.9 k/uL (1.3-7.7); Neutrophils % (A) 79 %; Platelet Count 258 k/uL (150-450); RBC 5.02 m/uL (4.30-5.90); RDW 12.8 % (11.5-15.5); WBC 10.1 k/uL (3.8-10.6)
[2018-09-05 16:27] LABS: Albumin 4.8 g/dL (3.80-4.90); Calcium 9.5 mg/dL (8.7-10.3); Globulin 1.6 g/dL (1.6-3.3); Potassium 4.8 mmol/L (3.5-5.5); Total Bilirubin 0.8 mg/dL (0.2-1.2); Total Protein 6.4 g/dL (6.2-8.2); Vitamin D 25 Hydroxy 18.2 ng/mL (30.0-100.0)
[2018-09-05 16:34] LABS: T4, Free (Free Thyroxine) 1.5 ng/dL (0.80-1.80)
== END | disposition home or self-care (01) ==
LOC: LABWHC1 11:21
PROVIDERS: ATTEND Psychiatry & Neurology Neurology
DX: E55.9 Vitamin D deficiency, unspecified (principal); E03.9 Hypothyroidism, unspecified; R56.9 Unspecified convulsions; R53.82 Chronic fatigue, unspecified
CPT/HCPCS: 36415; 80053; 80175; 82306; 82607; 84207; 84439; 84443; 84481; 85025

== ENCOUNTER 2018-12-03 20:21 | Emergency (ER) | payer MEDICARE ==
[2018-12-03 20:29] VITALS: BP 124/79; PULSE 71; RESP 18; TEMP 98.1
--- NOTE | 2018-12-03 20:36 | ED ---
General Adult HPI - General Chief complaint: Urogenital Stated complaint: hernia Time Seen by Provider: 12/03/18 20:33 Source: patient, RN notes reviewed Mode of arrival: ambulatory Limitations: no limitations - History of Present Illness Initial comments: 53-year-old male presents to the emergency department for a chief complaint of right groin swelling. Patient states he noticed this this morning. Patient states it is irritating but is not painful. Patient denies any redness to the area. Patient denies any difficulty with bowel movements. Patient is passing gas. Patient believes he has a hernia.Patient has no other complaints at this time including shortness of breath, chest pain, abdominal pain, nausea or vomiting, headache, or visual changes. - Related Data Home Medications Medication Instructions Recorded Confirmed lamoTRIgine 200 mg PO BID 10/01/15 08/23/18 Donepezil [Aricept] 10 mg PO HS 08/11/17 08/23/18 Aspirin EC [Ecotrin Low Dose] 81 mg PO DAILY 01/30/18 08/23/18 oxyCODONE-APAP 10-325MG [Percocet 1 tab PO BID 01/30/18 08/23/18 10-325 mg] Ipratropium/Albuterol Sulfate 2 puff INHALATION RT-QID PRN 12/03/18 12/03/18 [Combivent Respimat Inhaler] Allergies Allergy/AdvReac Type Severity Reaction Status Date / Time divalproex sodium Allergy Unknown Verified 12/03/18 21:04 [From Depakote] Childhood Review of Systems ROS Statement: Those systems with pertinent positive or pertinent negative responses have been documented in the HPI. ROS Other: All systems not noted in ROS Statement are negative. Past Medical History Past Medical History: Asthma, CVA/TIA, Fibromyalgia, Memory Impairment, Seizure Disorder Additional Past Medical History / Comment(s): Lyme disease, DDD, bulging discs, chronic low back pain, brain lesions-scar tissue, last seizure 01/30/18, memory/cognitive problems at times.TIA 01/30/18 History of Any Multi-Drug Resistant Organisms: None Reported Past Surgical History: Appendectomy, Cholecystectomy, Orthopedic Surgery Additional Past Surgical History / Comment(s): right knee arthroscopy Past Anesthesia/Blood Transfusion Reactions: No Reported Reaction Past Psychological History: Anxiety, Depression Smoking Status: Never smoker Past Alcohol Use History: Occasional Past Drug Use History: None Reported - Past Family History Father Family Medical History: Myocardial Infarction ([place]) Additional Family Medical History / Comment(s): Father of a [place] at the age of 62 yrs. Mother History Unknown: Yes Additional Family Medical History / Comment(s): Mother did not discuss her health problems. General Exam Limitations: no limitations General appearance: alert, in no apparent distress Head exam: Present: atraumatic, normocephalic, normal inspection Eye exam: Present: normal appearance, PERRL, EOMI. Absent: scleral icterus, conjunctival injection, periorbital swelling ENT exam: Present: normal exam, mucous membranes moist Neck exam: Present: normal inspection, full ROM. Absent: tenderness, meningismus, lymphadenopathy Respiratory exam: Present: normal lung sounds bilaterally. Absent: respiratory distress, wheezes, rales, rhonchi, stridor Cardiovascular Exam: Present: regular rate, normal rhythm, normal heart sounds. Absent: systolic murmur, diastolic murmur, rubs, gallop, clicks GI/Abdominal exam: Present: soft, normal bowel sounds. Absent: distended, tenderness, guarding, rebound, rigid exam: Present: other (Antony Pat RN present for exam. Patient has minimal fullness noted to the right suprapubic area. Minimal tenderness. Reducible hernia noted. No erythema.) Neurological exam: Present: alert, oriented X3, CN II-XII intact Psychiatric exam: Present: normal affect, normal mood Course Vital Signs 12/03/18 20:26 Temperature 98.1 F Pulse Rate 71 Respiratory 18 Rate Blood Pressure 124/79 O2 Sat by Pulse 97 Oximetry Medical Decision Making - Medical Decision Making 53 year old male presents to the emergency department for chief complaint of right suprapubic fullness. Patient has some fullness noted just he'll to the right groin. This is minimally tender with reducibility. Patient likely is inguinal hernia. However no evidence of incarceration or strangulation at this time. However XR KUB was ordered, no evidence of obstruction or pneumoperitoneum. Patient likely has a reducible inguinal hernia. However strict return precautions were discussed with patient including increased pain, redness, or inability to produce a bowel movement or pass gas. Patient will follow-up with surgery in 1-2 days. He will return here if he has any worsening symptoms. Disposition Clinical Impression: Reducible inguinal hernia Disposition: HOME SELF-CARE Condition: Good Instructions (If sedation given, give patient instructions): Inguinal Hernia (ED) Additional Instructions: Please take Motrin and Tylenol for pain. Please follow-up with surgery in 2 days. Please return here to the emergency department if you have any worsening symptoms. Is patient prescribed a controlled substance at d/c from ED?: No Referrals: Dwayne Belle MD [Primary Care Provider] - 1-2 days Angella Yañez DO [Doctor of Osteopathic Medicine] - 1-2 days Time of Disposition: 21:44
--- NOTE | 2018-12-03 21:29 | XR ---
EXAMINATION TYPE: XR KUB DATE OF EXAM: 12/03/2018 COMPARISON: NONE HISTORY: Epigastric pain. Hernia. TECHNIQUE: 2 views FINDINGS: There is no sign of intestinal obstruction or pneumoperitoneum. Fecal pattern is normal. Th ere are clips from cholecystectomy. Lung bases are clear. There is no sign of a mass. IMPRESSION: Nonacute abdomen.
== END 2018-12-03 22:01 | disposition home or self-care (01) ==
LOC: EC 20:21
DX: K40.90 Unilateral inguinal hernia, without obstruction or gangrene, not specified as recurrent (principal); J45.909 Unspecified asthma, uncomplicated; G31.84 Mild cognitive impairment of uncertain or unknown etiology; G40.909 Epilepsy, unspecified, not intractable, without status epilepticus; G89.29 Other chronic pain; F32.9 Major depressive disorder, single episode, unspecified; Z88.8 Allergy status to other drugs, medicaments and biological substances; Z79.82 Long term (current) use of aspirin; Z79.891 Long term (current) use of opiate analgesic; Z79.899 Other long term (current) drug therapy; Z86.73 Personal history of transient ischemic attack (TIA), and cerebral infarction without residual deficits; Z90.49 Acquired absence of other specified parts of digestive tract
CPT/HCPCS: 74018; 99283

== ENCOUNTER → 2019-01-02 | Outpatient (CLI) | payer MEDICARE ==
[2019-01-02 10:53] LABS: HCT 41.4 % (39.0-53.0); HGB 13.8 gm/dL (13.0-17.5); MCH 30.6 pg (25.0-35.0); MCHC 33.4 g/dL (31.0-37.0); MCV 91.6 fL (80.0-100.0); Mean Platelet Volume 6.9; Platelet Count 194 k/uL (150-450); RBC 4.53 m/uL (4.30-5.90); RDW 13.1 % (11.5-15.5); WBC 6.7 k/uL (3.8-10.6)
== END ==
LOC: LABPAT 09:42
PROVIDERS: ATTEND Surgery
DX: Z01.812 Encounter for preprocedural laboratory examination (principal); K40.30 Unilateral inguinal hernia, with obstruction, without gangrene, not specified as recurrent; K42.0 Umbilical hernia with obstruction, without gangrene
CPT/HCPCS: 85027

== ENCOUNTER 2019-01-03 07:55 | Day surgery (SDC) | payer MEDICARE ==
[2018-12-28 11:10] VITALS: BMI 26.9
[~2019-01-03 07:55] MED LIST: DEXAMETHASONE SOD PHOSPHATE 10 MG/ML 1 ML VIAL IV ONE; HEPARIN SODIUM,PORCINE 5,000 UNIT/ML 1 ML VIAL SQ ONE; HYDROmorphone 0.5 MG/0.5 ML SYRINGE IVP PRN; KETOROLAC 30 MG/ML 1 ML VIAL IVP SCH; LIDOCAINE 1% 20 ML VIAL (10MG/ML) FOR IV START INTRADERMA PRN; METOCLOPRAMIDE 5 MG/ML 2 ML VIAL IVP PRN; ONDANSETRON 4 MG/2 ML VIAL IVP ONE; ONDANSETRON 4 MG/2 ML VIAL IVP PRN; ceFAZolin IN SWFI 2 GM/20 ML SYRINGE IVP ONE
[2019-01-03 08:29] VITALS: TEMP 97.6
[2019-01-03] MEDS: LACTATED RINGERS 1,000 ML IV SCH (08:45)
--- NOTE | 2019-01-03 09:00 | P.GSHP ---
History of Present Illness H&P Date: 01/03/19 Chief Complaint: Umbilical and right inguinal hernia This a 53-year-old male has developed an umbilical and right inguinal hernia. Patient presents today for laparoscopic robotic-assisted repair. Past Medical History Past Medical History: Asthma, CVA/TIA, Fibromyalgia, Memory Impairment, Seizure Disorder Additional Past Medical History / Comment(s): charlette "I have 3 hernias to be fixed."Hx Lyme disease-approx 10 yrs ago, DDD, bulging discs, chronic low back pain, brain lesions-scar tissue, last seizure 01/30/18, memory/cognitive problems at times.TIA 01/30/18-no residual History of Any Multi-Drug Resistant Organisms: None Reported Past Surgical History: Appendectomy, Cholecystectomy, Orthopedic Surgery Additional Past Surgical History / Comment(s): right knee arthroscopy Past Anesthesia/Blood Transfusion Reactions: No Reported Reaction, Motion Sickness Additional Past Anesthesia/Blood Transfusion Reaction / Comment(s): no hx blood transfusion Smoking Status: Former smoker - Past Family History Father Family Medical History: Myocardial Infarction ([place]) Additional Family Medical History / Comment(s): Father of a [place] at the age of 62 yrs. Mother History Unknown: Yes Additional Family Medical History / Comment(s): Mother did not discuss her health problems. Medications and Allergies Home Medications Medication Instructions Recorded Confirmed Type lamoTRIgine 200 mg PO BID 10/01/15 01/03/19 History Donepezil [Aricept] 10 mg PO HS 08/11/17 01/03/19 History Aspirin EC [Ecotrin Low Dose] 81 mg PO DAILY 01/30/18 01/03/19 History oxyCODONE-APAP 10-325MG [Percocet 1 tab PO BID 01/30/18 01/03/19 History 10-325 mg] Ipratropium/Albuterol Sulfate 2 puff INHALATION RT-QID PRN 12/03/18 01/03/19 History [Combivent Respimat Inhaler] Allergies Allergy/AdvReac Type Severity Reaction Status Date / Time divalproex sodium Allergy Unknown Verified 12/28/18 10:55 [From Depakote] Childhood Surgical - Exam Vital Signs Temp Pulse Resp BP Pulse Ox 97.6 F 69 16 127/77 96 01/03/19 08:23 01/03/19 08:23 01/03/19 08:23 01/03/19 08:23 01/03/19 08:23 - General well developed, well nourished, no distress - Eyes PERRL - ENT normal pinna - Neck no masses - Respiratory normal expansion - Cardiovascular Rhythm: regular - Abdomen Abdomen: soft, non tender Hernia: inguinal (Right inguinal hernia), umbilical Assessment and Plan Assessment: Umbilical and right internal hernia. We'll perform laparoscopic robotic- assisted repair.
[2019-01-03] MEDS ORDERED: MIDAZOLAM (PF) 2 MG/2 ML VIAL IV ONE (09:03)
[2019-01-03] MEDS ORDERED: fentaNYL (PF) 50 MCG/ML 2 ML AMP IV ONE (09:03)
[2019-01-03] MEDS ORDERED: LIDOCAINE 1% INJ 10MG/ML (20 ML MDV) ONE (09:20)
[2019-01-03] MEDS ORDERED: VECURONIUM 10 MG VIAL IV ONE (09:20)
[2019-01-03] MEDS ORDERED: PHENYLEPHRINE-0.9% NACL SYG 1 MG/10 ML SYRINGE ONE (09:20)
[2019-01-03] MEDS ORDERED: NEOSTIGMINE 1 MG/ML 10 ML VIAL ONE (09:20)
[2019-01-03] MEDS ORDERED: MIDAZOLAM 2 MG/2 ML VIAL ONE (09:20)
[2019-01-03] MEDS ORDERED: PROPOFOL 10 MG/ML 20 ML VIAL IV ONE (09:20)
[2019-01-03] MEDS ORDERED: ROPIVACAINE 5 MG/ML 30 ML VIAL ONE (09:20)
[2019-01-03] MEDS ORDERED: GLYCOPYRROLATE 0.2 MG/ML 2 ML VIAL ONE (09:20)
[2019-01-03] MEDS ORDERED: SUCCINYLCHOLINE CHLORIDE 100 MG/5 ML SYR IV ONE (09:20)
[2019-01-03] MEDS ORDERED: fentaNYL (PF) 50 MCG/ML 2 ML AMP ONE (09:20)
[2019-01-03] MEDS ORDERED: BUPIVACAIN-EPI 0.25%-1:200,000 30 ML VIAL SQ ONE ×2 (09:24→09:46)
--- NOTE | 2019-01-03 09:29 | P.ONQ ---
Anesthesiology Proc Note - PNB - Peripheral Nerve Block Performed Right Transversus Abdominis Single Time Out Performed: Yes Procedure Start Time: 09:02 Indication: Acute Post-Operative Pain Specifically requested for management of pain by DrPeggy: Dagoberto Wilcox Sedation Type: Sedate with meaningful contact maintained Preparation: Sterile Prep Position: Supine Catheter: None Needle Types: Other (see comment) (Pajunk) Needle Size: 100mm (4") Needle Gauge: 21 Technique: Ultrasound Injectate: Other (see comment) (Ropivacaine 0.25%/lidocaine 0.5% 20 mL) Adjunct: Epinephrine (see comment for dilution ratio) (1:200,000) Blood Aspirated: No Pain Paresthesia on Injection Noted: No Resistance on Injection: Normal Events: Uneventful and Well Tolerated
--- NOTE | 2019-01-03 09:31 | P.ONQ ---
Anesthesiology Proc Note - PNB - Peripheral Nerve Block Performed Bilateral Rectus Abdominis Single Time Out Performed: Yes Procedure Stop Time: 09:02 Indication: Acute Post-Operative Pain Specifically requested for management of pain by DrPeggy: Dagoberto Wilcox Sedation Type: Sedate with meaningful contact maintained Preparation: Sterile Prep Position: Supine Catheter: None Needle Types: Other (see comment) (PAJunK) Needle Size: 100mm (4") Needle Gauge: 21 Technique: Ultrasound Injectate: Other (see comment) (Ropivacaine 0.25%/lidocaine 0.5% 20 mL per side) Adjunct: Epinephrine (see comment for dilution ratio) (1:200,000) Blood Aspirated: No Pain Paresthesia on Injection Noted: No Resistance on Injection: Normal Events: Uneventful and Well Tolerated
--- NOTE | 2019-01-03 10:28 | P.OP ---
Date of Procedure: 01/03/19 Preoperative Diagnosis: Right inguinal hernia Umbilical hernia Postoperative Diagnosis: Right inguinal hernia Umbilical hernia Procedure(s) Performed: Laparoscopic robotic-assisted repair of right inguinal hernia, umbilical hernia Anesthesia: AJ Surgeon: Dagoberto Wilcox Estimated Blood Loss (ml): 5 Pathology: none sent Condition: stable Disposition: PACU Description of Procedure: The patient was placed on the operating table in the supine position. The patient received general anesthesia. The patient's abdomen was prepped and draped in usual sterile fashion. The skin was anesthetized 1% local Xylocaine at the incision sites. Using an 11 blade a skin incision was made at the umbilicus. The fascia was grasped with a [place] and then the peritoneal cavity was entered with the Veress needle. Position of the Veress needle was confirmed with a positive drop test. After adequate insufflation a 5 mm trocar was placed into the peritoneal cavity. The Laparoscope was placed the peritoneal cavity. And a robotic 8 mm trocar was placed in the right lateral position and then another 8 mm robotic trochars placed in the left lateral position. The original 5 mm trocar was exchanged for a 12 mm trocar. The patient was placed in reverse Trendelenburg and then the patient was docked to the robot. Next the peritoneum over top of the hernia was incised and then using blunt and sharp dissection and electrocautery the hernia sac was dissected free from the floor of the inguinal canal. The hernia sac was completely reduced into the peritoneal cavity. And then using the Pro household personal assistant mesh the hernia was repaired. The peritoneum was then sutured with 2-0V lock suture. The patient was then undocked the robot. The needle was withdrawn from the peritoneal cavity. The umbilical hernia site was closed with 0 Ethibond suture. The skin was closed interrupted 3-0 Monocryl suture. Dermabond dressing was applied. Patient was sent to recovery in stable condition.
[2019-01-03] MEDS ORDERED: oxyCODONE-APAP 5-325MG 1 EACH TAB PO ONE (11:34)
[2019-01-03 12:21] VITALS: BP 142/78; PULSE 95; RESP 20
--- NOTE | 2019-01-05 09:23 | CDI ---
Outpatient Documentation Clarification Form Date: 01/05/19 CDS/Asphalt Tamper Name: Annette Hoyos Phone: If any questions, call Mellissa [facility] [employer] at [phone] Patient Name: Armando Hanson Admit Date: 01/03/19 Discharge Date: 01/03/19 ATTENTION: The [facility] Coding Staff appreciate your assistance in clarifying documentation. Please respond to the clarification below the line at the bottom and electronically sign. The [facility] Coding staff will review the response and follow-up if needed. Please note: Queries are made part of the Legal Health Record. If you have any questions, please contact the [employer]. Dear Dr. Wilcox, Please clarify if the umbilical hernia was repaired laparoscopically along with the inguinal hernia or not at all. There is no mention of the actual repair for the umbilical hernia on the procedure note. Thank you for your kind consideration. This is from the operative note: Next the peritoneum over top of the hernia was incised and then using blunt and sharp dissection and electrocautery the hernia sac was dissected free from the floor of the inguinal canal. The hernia sac was completely reduced into the peritoneal cavity. And then using the Pro transition mgr rn mesh the hernia was repaired. The peritoneum was then sutured with 2-0V lock suture. The patient was then undocked the robot. The needle was withdrawn from the peritoneal cavity. The umbilical hernia site was closed with 0 Ethibond suture. The skin was closed interrupted 3-0 Monocryl suture. Dermabond dressing was applied. Patient was sent to recovery in stable condition. SUSAN
== END 2019-01-03 12:22 | disposition home or self-care (01) ==
LOC: OR 07:55
PROVIDERS: ATTEND Surgery
DX: K42.9 Umbilical hernia without obstruction or gangrene (principal); K40.90 Unilateral inguinal hernia, without obstruction or gangrene, not specified as recurrent; J45.909 Unspecified asthma, uncomplicated; M79.7 Fibromyalgia; R41.3 Other amnesia; G40.909 Epilepsy, unspecified, not intractable, without status epilepticus; Z86.19 Personal history of other infectious and parasitic diseases; G89.29 Other chronic pain; M54.5 Low back pain; Z86.73 Personal history of transient ischemic attack (TIA), and cerebral infarction without residual deficits; Z90.49 Acquired absence of other specified parts of digestive tract; J44.9 Chronic obstructive pulmonary disease, unspecified; Z87.891 Personal history of nicotine dependence; Z79.891 Long term (current) use of opiate analgesic; Z79.899 Other long term (current) drug therapy; Z88.8 Allergy status to other drugs, medicaments and biological substances
CPT/HCPCS: 49650; 64488; 49652; C1781; J2250 ×2; J1644; J1100; J2710; J2405; J2001; J3010; J1885; J2795; J2370; J0330; J2704; J0690; 64486

== ENCOUNTER 2019-01-04 10:06 | Emergency (ER) | payer MEDICARE ==
[2019-01-04] MEDS ORDERED: SODIUM CHLORIDE 0.9% 500 ML 500 ML IV STA (10:42)
[2019-01-04] MEDS ORDERED: SODIUM CHLORIDE 0.9% 1,000 ML IV STA (10:42)
[2019-01-04] MEDS ORDERED: fentaNYL (PF) 50 MCG/ML 2 ML AMP IV STA (10:43)
--- NOTE | 2019-01-04 10:45 | ED ---
Abdominal Pain HPI - General Chief Complaint: Abdominal Pain Stated Complaint: abdominal pain-post hernia surgery Time Seen by Provider: 01/04/19 10:26 Source: patient, RN notes reviewed Mode of arrival: wheelchair Limitations: no limitations - History of Present Illness Initial Comments: This is a 53-year-old male who presents with complaints of abdominal pain that started he states after his anesthetic or off yesterday. He states he got a umbilical and a right ankle hernia repair done. He was discharged home last evening. He states his home medication is not helping he states is very severe sharp burning pain in his abdomen hurts to touch. He states he's been unable to drink much since that time. He denies any overt fevers chills nausea vomiting or sweats just pain. No falls no trauma no other reports of issues or modifying factors. MD Complaint: abdominal pain - Related Data Home Medications Medication Instructions Recorded Confirmed lamoTRIgine 200 mg PO BID 10/01/15 01/04/19 Donepezil [Aricept] 10 mg PO HS 08/11/17 01/04/19 Aspirin EC [Ecotrin Low Dose] 81 mg PO DAILY 01/30/18 01/04/19 oxyCODONE-APAP 10-325MG [Percocet 1 tab PO BID 01/30/18 01/04/19 10-325 mg] Ipratropium/Albuterol Sulfate 2 puff INHALATION RT-QID PRN 12/03/18 01/04/19 [Combivent Respimat Inhaler] Previous Rx's Medication Instructions Recorded Docusate [Colace] 100 mg PO BID #20 capsule 01/03/19 HYDROcodone/APAP 7.5-325MG [[place] 1 tab PO Q6HR PRN 3 Days #10 tab 01/03/19 7.5-325] HYDROcodone/APAP 10-325MG [[place] 1 tab PO Q6HR PRN 3 Days #12 tab 01/04/19 10-325] Allergies Allergy/AdvReac Type Severity Reaction Status Date / Time divalproex sodium Allergy Unknown Verified 01/04/19 10:18 [From Depakote] Childhood Review of Systems ROS Statement: Those systems with pertinent positive or pertinent negative responses have been documented in the HPI. ROS Other: All systems not noted in ROS Statement are negative. Past Medical History Past Medical History: Asthma, CVA/TIA, Fibromyalgia, Memory Impairment, Seizure Disorder Additional Past Medical History / Comment(s): charlette "I have 3 hernias to be fixed."Hx Lyme disease-approx 10 yrs ago, DDD, bulging discs, chronic low back pain, brain lesions-scar tissue, last seizure 01/30/18, memory/cognitive problems at times.TIA 01/30/18-no residual History of Any Multi-Drug Resistant Organisms: None Reported Past Surgical History: Appendectomy, Cholecystectomy, Hernia Repair, Orthopedic Surgery Additional Past Surgical History / Comment(s): right knee arthroscopy Past Anesthesia/Blood Transfusion Reactions: No Reported Reaction, Motion Sickness Additional Past Anesthesia/Blood Transfusion Reaction / Comment(s): no hx blood transfusion Past Psychological History: Anxiety, Depression Smoking Status: Former smoker - Past Family History Father Family Medical History: Myocardial Infarction ([place]) Additional Family Medical History / Comment(s): Father of a [place] at the age of 62 yrs. Mother History Unknown: Yes Additional Family Medical History / Comment(s): Mother did not discuss her heal th problems. General Exam - General Exam Comments Initial Comments: This is a well-developed well-nourished awake alert oriented 3 male Limitations: no limitations General appearance: alert, anxious, in distress Head exam: Present: atraumatic, normocephalic, normal inspection Eye exam: Present: normal appearance, PERRL, EOMI. Absent: scleral icterus, conjunctival injection, periorbital swelling ENT exam: Present: normal exam, mucous membranes moist Neck exam: Present: normal inspection. Absent: tenderness, meningismus, lymphadenopathy Respiratory exam: Present: normal lung sounds bilaterally. Absent: respiratory distress, wheezes, rales, rhonchi, stridor Cardiovascular Exam: Present: regular rate, normal rhythm, normal heart sounds. Absent: systolic murmur, diastolic murmur, rubs, gallop, clicks GI/Abdominal exam: Present: soft, tenderness, guarding (The wound sites appear to be intact with no drainage or dehiscence evident. No erythema.), normal bowel sounds. Absent: distended, rebound, rigid Extremities exam: Present: normal inspection, full ROM, normal capillary refill. Absent: tenderness, pedal edema, joint swelling, calf tenderness Back exam: Present: normal inspection Neurological exam: Present: alert, oriented X3, CN II-XII intact Psychiatric exam: Present: normal affect, normal mood Skin exam: Present: warm, dry, intact, normal color. Absent: rash Course Vital Signs 01/04/19 01/04/19 01/04/19 10:09 13:19 14:13 Temperature 98.9 F Pulse Rate 69 63 61 Respiratory 18 18 18 Rate Blood Pressure 135/81 139/91 146/84 O2 Sat by Pulse 98 100 99 Oximetry - Reevaluation(s) Reevaluation #1: 01/04/19 16:18 Patient did require multiple injections of medication to get his pain under control this ultimately was successful. I did discuss the case with Dr. Wilcox who did request we try control of pain in the emergency department patient will be discharged with a prescription for higher dose medication temporarily. Lab work was reviewed and found be unremarkable as read the x-rays except for the pneumoperitoneum which was residual from the surgery yesterday. Medical Decision Making - Lab Data Result diagrams: 01/04/19 11:00 01/04/19 11:00 Lab Results 01/04/19 01/04/19 01/04/19 Range/Units 11:00 11:00 14:20 WBC 8.9 (3.8-10.6) k/uL RBC 4.38 (4.30-5.90) m/uL Hgb 13.5 (13.0-17.5) gm/dL Hct 40.0 (39.0-53.0) % MCV 91.4 (80.0-100.0) fL MCH 30.9 (25.0-35.0) pg MCHC 33.8 (31.0-37.0) g/dL RDW 13.4 (11.5-15.5) % Plt Count 216 (150-450) k/uL Neutrophils % 67 % Lymphocytes % 24 % Monocytes % 6 % Eosinophils % 1 % Basophils % 0 % Neutrophils # 6.0 (1.3-7.7) k/uL Lymphocytes # 2.1 (1.0-4.8) k/uL Monocytes # 0.6 (0-1.0) k/uL Eosinophils # 0.1 (0-0.7) k/uL Basophils # 0.0 (0-0.2) k/uL Sodium 143 (137-145) mmol/L Potassium 4.4 (3.5-5.1) mmol/L Chloride 108 H (98-107) mmol/L Carbon Dioxide 27 (22-30) mmol/L Anion Gap 8 mmol/L BUN 9 (9-20) mg/dL Creatinine 1.11 (0.66-1.25) mg/dL Est GFR (CKD-EPI)AfAm 86 (>60 ml/min/1.73 sqM) Est GFR (CKD-EPI)NonAf 75 (>60 ml/min/1.73 sqM) Glucose 95 (74-99) mg/dL Calcium 9.2 (8.4-10.2) mg/dL Total Bilirubin 0.4 (0.2-1.3) mg/dL AST 24 (17-59) U/L ALT 17 L (21-72) U/L Alkaline Phosphatase 81 (38-126) U/L Creatine Kinase 444 H (55-170) U/L Total Protein 6.4 (6.3-8.2) g/dL Albumin 4.4 (3.5-5.0) g/dL Amylase 67 (30-110) U/L Lipase 98 (23-300) U/L Urine Color Yellow Urine Appearance Clear (Clear) Urine pH 6.0 (5.0-8.0) Ur Specific [place] 1.026 (1.001-1.035) Urine Protein Trace H (Negative) Urine Glucose (UA) Negative (Negative) Urine Ketones Negative (Negative) Urine Blood Negative (Negative) Urine Nitrite Negative (Negative) Urine Bilirubin Negative (Negative) Urine Urobilinogen <2.0 (<2.0) mg/dL Ur Leukocyte Esterase Trace H (Negative) Urine RBC 1 (0-5) /hpf Urine WBC 3 (0-5) /hpf Calcium Oxalate Crystal Rare H (None) /hpf Urine Mucus Rare H (None) /hpf Disposition Clinical Impression: Abdominal pain, Postoperative pain Disposition: HOME SELF-CARE Condition: Good Instructions (If sedation given, give patient instructions): Abdominal Pain (ED) Prescriptions: HYDROcodone/APAP 10-325MG [Cl[place]son 10-325] 1 tab PO Q6HR PRN 3 Days #12 tab PRN Reason: Pain Is patient prescribed a controlled substance at d/c from ED?: Yes When asked, does pt state using other controlled substances?: Yes If prescribed controlled substance>3 days was MAPS reviewed?: Prescribed <3 Days If opioid is for acute pain is fill amount 7 days or less?: Yes If Rx opioid, was Start Talking consent form obtained?: Yes Referrals: Dwayne Belle MD [Primary Care Provider] - 1-2 days
[2019-01-04 11:30] LABS: Albumin 4.4 g/dL (3.5-5.0); Calcium 9.2 mg/dL (8.4-10.2); Potassium 4.4 mmol/L (3.5-5.1); Total Bilirubin 0.4 mg/dL (0.2-1.3); Total Protein 6.4 g/dL (6.3-8.2)
[2019-01-04 11:35] LABS: Basophils % (A) 0 %; Eosinophils # (A) 0.1 k/uL (0-0.7); Eosinophils % (A) 1 %; HGB 13.5 gm/dL (13.0-17.5); Lymphocytes # (A) 2.1 k/uL (1.0-4.8); Lymphocytes % (A) 24 %; MCH 30.9 pg (25.0-35.0); MCHC 33.8 g/dL (31.0-37.0); MCV 91.4 fL (80.0-100.0); Monocytes # (A) 0.6 k/uL (0-1.0); Monocytes % (A) 6 %; Neutrophils % (A) 67 %; Platelet Count 216 k/uL (150-450); RBC 4.38 m/uL (4.30-5.90); RDW 13.4 % (11.5-15.5); WBC 8.9 k/uL (3.8-10.6)
--- NOTE | 2019-01-04 11:39 | XR ---
EXAMINATION TYPE: XR KUB DATE OF EXAM: 01/04/2019 11:28 AM CLINICAL HISTORY: Left abdominal pain. Recent hernia surgery yesterday. TECHNIQUE: Single upright image of the abdomen is obtained. COMPARISON: 11/25/2018. FINDINGS: There is pneumoperitoneum seen beneath the right and left hemidiaphragms. This is presumed postsurgical. No dilated large or small bowel. Cholecystectomy clips are seen. Mild levoscoliosis of the lumbar spine is noted. Lung bases are well aerated. Moderate degenerative changes of the femoral acetabular joints. IMPRESSION: 1. Postoperative pneumoperitoneum with recent hernia repair yesterday. 2. Nonobstructive bowel gas pattern.
[2019-01-04] MEDS ORDERED: KETOROLAC 30 MG/ML 1 ML VIAL IVP STA ×2 (11:49→16:12)
[2019-01-04] MEDS ORDERED: KETAMINE 10 MG/ML 20 ML VIAL IV ONE (13:03)
[2019-01-04] MEDS ORDERED: KETAMINE 10 MG/ML 20 ML VIAL IV STA (13:13)
[2019-01-04 14:42] LABS: Appearance,Urine Clear (Clear); Bilirubin,Urine Negative (Negative); Blood,Urine Negative (Negative); Calcium Oxalate Crystals,Urine Rare /hpf; Color,Urine Yellow; Glucose,Urine (UA) Negative (Negative); Ketones,Urine Negative (Negative); Leukocyte Esterase,Urine Trace (Negative); Mucus,Urine Rare /hpf; Nitrite,Urine Negative (Negative); Protein,Urine Trace (Negative); RBC,Urine 1 /hpf (0-5); Specific Gravity,Urine 1.026 (1.001-1.035); Urobilinogen,Urine <2.0 mg/dL (<2.0); WBC,Urine 3 /hpf (0-5)
[2019-01-04] MEDS ORDERED: HYDROmorphone 1 MG/ML 1 ML SYRINGE IVP STA (14:51)
[2019-01-04 16:36] VITALS: BP 146/90; PULSE 63; RESP 19; TEMP 97.6
== END 2019-01-04 16:37 | disposition home or self-care (01) ==
LOC: EC 10:06
DX: R10.33 Periumbilical pain (principal); G89.18 Other acute postprocedural pain; J45.909 Unspecified asthma, uncomplicated; G40.909 Epilepsy, unspecified, not intractable, without status epilepticus; M79.7 Fibromyalgia; M54.5 Low back pain; G89.29 Other chronic pain; F32.9 Major depressive disorder, single episode, unspecified; F41.9 Anxiety disorder, unspecified; Z86.73 Personal history of transient ischemic attack (TIA), and cerebral infarction without residual deficits; Z87.891 Personal history of nicotine dependence; Z79.82 Long term (current) use of aspirin; Z79.891 Long term (current) use of opiate analgesic; Z79.899 Other long term (current) drug therapy; Z88.8 Allergy status to other drugs, medicaments and biological substances; Z53.8 Procedure and treatment not carried out for other reasons; Z98.890 Other specified postprocedural states
CPT/HCPCS: 99284; 96374; 96375 ×4; 96361 ×5; 36415; 80053; 82150; 82550; 83690; 85025; 81001; 74018; J3010; J1885; J1170

== ENCOUNTER 2019-04-12 08:47 | Day surgery (SDC) | payer MEDICARE ==
[2019-04-12] MEDS ORDERED: LIDOCAINE 1% 20 ML VIAL (10MG/ML) FOR IV START INTRADERMA PRN (09:13)
[2019-04-12] MEDS ORDERED: LACTATED RINGERS 1,000 ML IV SCH (09:13)
[2019-04-12] MEDS ORDERED: PROPOFOL 10 MG/ML 20 ML VIAL IV ONE (09:36)
--- NOTE | 2019-04-12 09:47 | P.GSHP ---
History of Present Illness H&P Date: 04/12/19 Chief Complaint: Screening colonoscopy, constipation This a 53-year-old male who's had issues with constipation. Patient rents today for screening colonoscopy. Past Medical History Past Medical History: Asthma, CVA/TIA, Fibromyalgia, Memory Impairment, Seizure Disorder Additional Past Medical History / Comment(s): charlette "I have 3 hernias to be fixed."Hx Lyme disease-approx 10 yrs ago, DDD, bulging discs, chronic low back pain, brain lesions-scar tissue, last seizure 01/30/18, memory/cognitive problems at times.TIA 01/30/18-no residual,INTERMINTENT DIARRHEA FOR MONTHS History of Any Multi-Drug Resistant Organisms: None Reported Past Surgical History: Appendectomy, Cholecystectomy, Hernia Repair, Orthopedic Surgery Additional Past Surgical History / Comment(s): right knee arthroscopy Past Anesthesia/Blood Transfusion Reactions: No Reported Reaction, Motion Sickness Additional Past Anesthesia/Blood Transfusion Reaction / Comment(s): no hx blood transfusion Past Psychological History: Anxiety, Depression Additional Psychological History / Comment(s): Pt resides alone in his own home. 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 He is independent. He drives. He states he has been losing wt d/t unable to afford food to eat. Smoking Status: Former smoker Past Alcohol Use History: None Reported Additional Past Alcohol Use History / Comment(s): no smoking approx 5 years Pt states he will have an occaional cigar but not often. Past Drug Use History: None Reported - Past Family History Father Family Medical History: Myocardial Infarction ([place]) Additional Family Medical History / Comment(s): Father of a [place] at the age of 62 yrs. Mother History Unknown: Yes Additional Family Medical History / Comment(s): Mother did not discuss her health problems. Medications and Allergies Home Medications Medication Instructions Recorded Confirmed Type lamoTRIgine 200 mg PO BID 10/01/15 04/12/19 History Donepezil [Aricept] 10 mg PO HS 08/11/17 04/12/19 History Aspirin EC [Ecotrin Low Dose] 81 mg PO DAILY 01/30/18 04/12/19 History oxyCODONE-APAP 10-325MG [Percocet 1 tab PO BID 01/30/18 04/12/19 History 10-325 mg] Ipratropium/Albuterol Sulfate 2 puff INHALATION RT-QID PRN 12/03/18 04/12/19 History [Combivent Respimat Inhaler] HYDROcodone/APAP 7.5-325MG [[place] 1 tab PO Q6HR PRN 3 Days #10 tab 01/03/19 04/12/19 Rx 7.5-325] Allergies Allergy/AdvReac Type Severity Reaction Status Date / Time divalproex sodium Allergy Unknown Verified 01/04/19 10:18 [From [facility]] Childhood Surgical - Exam Vital Signs Pulse Resp BP Pulse Ox 60 20 121/61 96 04/12/19 09:32 04/12/19 09:32 04/12/19 09:32 04/12/19 09:32 - General well developed, well nourished, no distress - Eyes PERRL - ENT normal pinna - Neck no masses - Respiratory normal expansion - Cardiovascular Rhythm: regular - Abdomen Abdomen: soft, non tender Assessment and Plan Assessment: We'll perform screening colonoscopy.
--- NOTE | 2019-04-12 10:05 | P.OP ---
Date of Procedure: 04/12/19 Preoperative Diagnosis: Screening colonoscopy Postoperative Diagnosis: Left colon polyp Diverticulosis Right colon polyp Procedure(s) Performed: Colonoscopy Anesthesia: MAC Surgeon: Dagoberto Wilcox Pathology: other (Right colon polyp, left colon polyp) Condition: stable Disposition: PACU Description of Procedure: The patient's placed on the endoscopy table in the lateral position. He received IV sedation. Digital rectal exam was performed which revealed no abnormalities. Flexible colonoscope was then placed patient anus passed throughout the entire colon. Ileocecal valve lesions. In the right colon there was a small sessile polyp this removed the cold forcep. Scope was withdrawn remainder the right colon appeared normal. The transverse colon appeared normal. In the descending colon there was diverticulosis. There was a pedunculated polyp which was removed with snare. The scope was then brought back and sigmoid colon and diverticular changes were seen. There is no evidence of diverticulitis. Scope was then brought back the rectum and this appeared normal. Scope was withdrawn for patient.
[2019-04-12 10:10] VITALS: RESP 16
[2019-04-12 10:29] VITALS: BP 118/72; PULSE 56
== END 2019-04-12 10:41 | disposition home or self-care (01) ==
LOC: ORWHC2ENDO 08:47
PROVIDERS: ATTEND Surgery
DX: D12.2 Benign neoplasm of ascending colon (principal); D12.4 Benign neoplasm of descending colon; K57.30 Diverticulosis of large intestine without perforation or abscess without bleeding; J45.909 Unspecified asthma, uncomplicated; M79.7 Fibromyalgia; R41.3 Other amnesia; Z86.73 Personal history of transient ischemic attack (TIA), and cerebral infarction without residual deficits; F41.9 Anxiety disorder, unspecified; F32.9 Major depressive disorder, single episode, unspecified; Z87.891 Personal history of nicotine dependence; Z86.19 Personal history of other infectious and parasitic diseases; G89.29 Other chronic pain; M54.5 Low back pain; Z90.49 Acquired absence of other specified parts of digestive tract; G40.909 Epilepsy, unspecified, not intractable, without status epilepticus; Z79.82 Long term (current) use of aspirin; Z79.891 Long term (current) use of opiate analgesic; Z79.899 Other long term (current) drug therapy; Z88.8 Allergy status to other drugs, medicaments and biological substances
CPT/HCPCS: 88305; 45380; 45385; J2704

== ENCOUNTER → 2020-01-01 | Outpatient (CLI) | payer MEDICARE ==
[2020-01-01 15:05] LABS: Basophils # (A) 0.1 k/uL (0-0.2); Basophils % (A) 1 %; Eosinophils # (A) 0.1 k/uL (0-0.7); Eosinophils % (A) 1 %; HCT 45.8 % (39.0-53.0); HGB 15.5 gm/dL (13.0-17.5); Lymphocytes # (A) 1.8 k/uL (1.0-4.8); Lymphocytes % (A) 20 %; MCH 32.5 pg (25.0-35.0); MCHC 33.9 g/dL (31.0-37.0); MCV 95.9 fL (80.0-100.0); Mean Platelet Volume 6.9; Monocytes # (A) 0.4 k/uL (0-1.0); Monocytes % (A) 4 %; Neutrophils # (A) 6.6 k/uL (1.3-7.7); Neutrophils % (A) 72 %; Platelet Count 228 k/uL (150-450); RBC 4.77 m/uL (4.30-5.90); RDW 12.6 % (11.5-15.5); WBC 9.2 k/uL (3.8-10.6)
[2020-01-01 16:04] LABS: Erythrocyte Sedimentation Rate 2 mm/hr (0-15)
[2020-01-01 23:37] LABS: ALT 15 U/L (10-49); AST 15 U/L (14-35); African American GFR (CKD) 77.9 (60.0-200.0); Albumin/Globulin Ratio 3.08 (1.60-3.17); Alkaline Phosphatase 79 U/L (41-126); BUN/Creat Ratio 10.83 Ratio (12.00-20.00); C Reactive Protein <0.4 mg/dL (0.0-0.8); Calcium 9.3 mg/dL (8.7-10.3); Carbon Dioxide 31.3 mmol/L (21.6-31.8); Chloride 112 mmol/L (96-109); Globulin 1.2 g/dL (1.6-3.3); Glucose 99 mg/dL (70-110); Non-African American GFR(CKD) 67.2 (60.0-200.0); Potassium 4.7 mmol/L (3.5-5.5); Sodium 147 mmol/L (135-145); Total Bilirubin 0.4 mg/dL (0.3-1.2); Total Protein 4.9 g/dL (6.2-8.2)
== END | disposition home or self-care (01) ==
LOC: LABWHC1 13:57
PROVIDERS: ATTEND Internal Medicine
DX: R19.7 Diarrhea, unspecified (principal)
CPT/HCPCS: 36415; 80053; 83630; 83993; 84439; 84443; 85025; 85652; 86140; 87045; 87046; 87324; 87328; 87329

== ENCOUNTER 2021-08-01 22:18 | Emergency (ER) | payer MEDICARE ==
[2021-08-01 22:29] VITALS: TEMP 97.9
[2021-08-01] MEDS ORDERED: MORPHINE SULFATE 4 MG/ML SYRINGE IV STA (23:32)
[2021-08-01] MEDS ORDERED: SODIUM CHLORIDE 0.9% 1,000 ML IV STA (23:32)
[2021-08-01 23:57] LABS: Basophils # (A) 0.1 k/uL (0-0.2); Basophils % (A) 1 %; Eosinophils # (A) 0.4 k/uL (0-0.7); Eosinophils % (A) 5 %; HCT 39.5 % (39.0-53.0); HGB 13.5 gm/dL (13.0-17.5); Lymphocytes # (A) 2.2 k/uL (1.0-4.8); Lymphocytes % (A) 25 %; MCH 32.9 pg (25.0-35.0); MCHC 34.3 g/dL (31.0-37.0); MCV 95.9 fL (80.0-100.0); Mean Platelet Volume 7.4; Monocytes # (A) 0.5 k/uL (0-1.0); Monocytes % (A) 6 %; Neutrophils # (A) 5.7 k/uL (1.3-7.7); Neutrophils % (A) 63 %; Platelet Count 224 k/uL (150-450); RBC 4.12 m/uL (4.30-5.90); RDW 12.3 % (11.5-15.5)
--- NOTE | 2021-08-01 23:58 | XR ---
EXAMINATION TYPE: XR chest 2V DATE OF EXAM: 08/01/2021 COMPARISON: 08/23/2018 HISTORY: Chest pain TECHNIQUE: 2 views FINDINGS: Heart and mediastinum are normal. Lungs are clear. Diaphragm is normal. Bony thorax is inta ct. IMPRESSION: Normal chest. No change.
[2021-08-02 00:06] LABS: Albumin 3.3 g/dL (3.5-5.0); Calcium 8.6 mg/dL (8.4-10.2); Total Bilirubin 0.2 mg/dL (0.2-1.3); Total Protein 5.3 g/dL (6.3-8.2)
--- NOTE | 2021-08-02 00:32 | ED ---
General Adult HPI - General Chief complaint: ENT Stated complaint: difficulty swallowing Time Seen by Provider: 08/01/21 22:49 Source: patient, RN notes reviewed Mode of arrival: ambulatory Limitations: no limitations - History of Present Illness Initial comments: patient is a 55-year-old male that presents to the emergency department complaining of sternal chest pain. He notes that he started gluing his symptoms and became concerned for possible heart issues. He came to the emergency room for evaluation. He denied any alleviating or aggravating factors. He notes that yesterday he felt like he had a foreign body sensation in his throat but that went away on its own. He was otherwise well-appearing. Patient notes he became worried because she has no one at home to help take care of himself in case she does get sick.patient denied any shortness of breath headache nausea vomiting diarrhea constipation fever fatigue chills radiating pain. - Related Data Home Medications Medication Instructions Recorded Confirmed lamoTRIgine 200 mg PO BID 10/01/15 04/12/19 Donepezil [Aricept] 10 mg PO HS 08/11/17 04/12/19 Aspirin EC [Ecotrin Low Dose] 81 mg PO DAILY 01/30/18 04/12/19 oxyCODONE-APAP 10-325MG [Percocet 1 tab PO BID 01/30/18 04/12/19 10-325 mg] Ipratropium/Albuterol Sulfate 2 puff INHALATION RT-QID PRN 12/03/18 04/12/19 [Combivent Respimat Inhaler] Previous Rx's Medication Instructions Recorded HYDROcodone/APAP 7.5-325MG [[place] 1 tab PO Q6HR PRN 3 Days #10 tab 01/03/19 7.5-325] Allergies Allergy/AdvReac Type Severity Reaction Status Date / Time divalproex sodium Allergy Unknown Verified 01/04/19 10:18 [From Depakote] Childhood Review of Systems ROS Statement: Those systems with pertinent positive or pertinent negative responses have been documented in the HPI. ROS Other: All systems not noted in ROS Statement are negative. Past Medical History Past Medical History: Asthma, CVA/TIA, Fibromyalgia, Memory Impairment, Seizure Disorder Additional Past Medical History / Comment(s): staes "I have 3 hernias to be fixed."Hx Lyme disease-approx 10 yrs ago, DDD, bulging discs, chronic low back pain, brain lesions-scar tissue, last seizure 01/30/18, memory/cognitive problems at times.TIA 01/30/18-no residual,INTERMINTENT DIARRHEA FOR MONTHS History of Any Multi-Drug Resistant Organisms: None Reported Past Surgical History: Appendectomy, Cholecystectomy, Hernia Repair, Orthopedic Surgery Additional Past Surgical History / Comment(s): right knee arthroscopy Past Anesthesia/Blood Transfusion Reactions: No Reported Reaction, Motion Sickness Additional Past Anesthesia/Blood Transfusion Reaction / Comment(s): no hx blood transfusion Past Psychological History: Anxiety, Depression Smoking Status: Never smoker Past Alcohol Use History: Occasional Past Drug Use History: None Reported - Past Family History Father Family Medical History: Myocardial Infarction ([place]) Additional Family Medical History / Comment(s): Father of a [place] at the age of 62 yrs. Mother History Unknown: Yes Additional Family Medical History / Comment(s): Mother did not discuss her health problems. General Exam Limitations: no limitations General appearance: alert, in no apparent distress Head exam: Present: atraumatic, normocephalic, normal inspection Eye exam: Present: normal appearance, PERRL, EOMI. Absent: scleral icterus, conjunctival injection, periorbital swelling ENT exam: Present: normal exam, mucous membranes moist Neck exam: Present: normal inspection Respiratory exam: Present: normal lung sounds bilaterally. Absent: respiratory distress, wheezes, rales, rhonchi, stridor Cardiovascular Exam: Present: regular rate, normal rhythm, normal heart sounds. Absent: systolic murmur, diastolic murmur, rubs, gallop, clicks GI/Abdominal exam: Present: soft, normal bowel sounds. Absent: distended, tenderness, guarding, rebound, rigid Extremities exam: Present: normal inspection, full ROM, normal capillary refill. Absent: tenderness, pedal edema, joint swelling, calf tenderness Neurological exam: Present: alert, oriented X3 Psychiatric exam: Present: normal affect, normal mood Skin exam: Present: warm, dry, intact, normal color. Absent: rash Course Vital Signs 08/01/21 22:25 Temperature 97.9 F Pulse Rate 75 Respiratory 20 Rate Blood Pressure 142/88 O2 Sat by Pulse 99 Oximetry EKG Findings - EKG Comments: EKG Findings:: ventricular rate 71 bpm, NC interval 158 ms, QRS duration 80 ms, QTC 430 ms, normal sinus rhythm, low voltage QRS, borderline ECG. Medical Decision Making - Medical Decision Making 55-year-old male with sternal chest pain nonradiating here for evaluation. Labs, EKG, threat monitoring analyst, chest x-ray ordered. Labs are unremarkable and within normal limits, negative troponin. Chest x-ray shows normal chest. No change. EKG is within normal limits. Patient was informed of her results and is agreeable to discharge home with follow-up primary care. case discussed with Dr. Anderson. - Lab Data Result diagrams: 08/01/21 23:51 08/01/21 23:51 Lab Results 08/01/21 08/01/21 08/01/21 Range/Units 23:51 23:51 23:51 WBC 9.0 (3.8-10.6) k/uL RBC 4.12 L (4.30-5.90) m/uL Hgb 13.5 (13.0-17.5) gm/dL Hct 39.5 (39.0-53.0) % MCV 95.9 (80.0-100.0) fL MCH 32.9 (25.0-35.0) pg MCHC 34.3 (31.0-37.0) g/dL RDW 12.3 (11.5-15.5) % Plt Count 224 (150-450) k/uL MPV 7.4 Neutrophils % 63 % Lymphocytes % 25 % Monocytes % 6 % Eosinophils % 5 % Basophils % 1 % Neutrophils # 5.7 (1.3-7.7) k/uL Lymphocytes # 2.2 (1.0-4.8) k/uL Monocytes # 0.5 (0-1.0) k/uL Eosinophils # 0.4 (0-0.7) k/uL Basophils # 0.1 (0-0.2) k/uL Sodium 138 (137-145) mmol/L Potassium 4.0 (3.5-5.1) mmol/L Chloride 106 (98-107) mmol/L Carbon Dioxide 26 (22-30) mmol/L Anion Gap 6 mmol/L BUN 15 (9-20) mg/dL Creatinine 1.12 (0.66-1.25) mg/dL Est GFR (CKD-EPI)AfAm 84 (>60 ml/min/1.73 sqM) Est GFR (CKD-EPI)NonAf 73 (>60 ml/min/1.73 sqM) Glucose 104 H (74-99) mg/dL Calcium 8.6 (8.4-10.2) mg/dL Total Bilirubin 0.2 (0.2-1.3) mg/dL AST 23 (17-59) U/L ALT 17 (4-49) U/L Alkaline Phosphatase 70 (38-126) U/L Troponin I <0.012 (0.000-0.034) ng/mL Total Protein 5.3 L (6.3-8.2) g/dL Albumin 3.3 L (3.5-5.0) g/dL Amylase 74 (30-110) U/L Lipase 191 (23-300) U/L - Radiology Data Radiology results: report reviewed, image reviewed chest x-ray: normal chest. Disposition Clinical Impression: Atypical chest pain Disposition: HOME SELF-CARE Condition: Stable Instructions (If sedation given, give patient instructions): Chest Pain (ED) Additional Instructions: Please return to the Emergency Department if symptoms worsen or any other concerns. Follow-up with primary care 1-2 days. take Tylenol and Motrin as needed for aches and pains. Is patient prescribed a controlled substance at d/c from ED?: No Referrals: Dwayne Belle MD [Primary Care Provider] - 1-2 days Time of Disposition: 00:32
[2021-08-02] MEDS ORDERED: KETOROLAC 15 MG/ML 1 ML VIAL IVP STA (00:36)
[2021-08-02 00:47] VITALS: BP 142/86; PULSE 68; RESP 18
== END 2021-08-02 00:49 | disposition home or self-care (01) ==
LOC: EC 22:18
DX: R07.89 Other chest pain (principal); J45.909 Unspecified asthma, uncomplicated; G40.909 Epilepsy, unspecified, not intractable, without status epilepticus; F32.A Depression, unspecified; F41.9 Anxiety disorder, unspecified; M79.7 Fibromyalgia; Z79.82 Long term (current) use of aspirin; Z79.899 Other long term (current) drug therapy
CPT/HCPCS: 36415; 93005; 80053; 82150; 83690; 84484; 85025; 71046; 99285; 96374; 96375; 96361; J2270; J1885

== ENCOUNTER 2022-01-17 12:12 | Emergency (ER) | payer MEDICARE ==
[2022-01-17 12:16] VITALS: BP 155/84; PULSE 68; RESP 20; TEMP 98.5
--- NOTE | 2022-01-17 12:50 | ED ---
General Adult HPI - General Chief complaint: Extremity Problem,Nontraumatic Stated complaint: Leg pain Time Seen by Provider: 01/17/22 12:25 Source: patient, RN notes reviewed, old records reviewed Mode of arrival: ambulatory Limitations: no limitations - History of Present Illness Initial comments: Is a 56-year-old male who presents in the department complaining of chronic fibromyalgia pain. States has been getting worse over the last few months. He is on oxycodone at home. He states he needs to follow-up with his pain specialist this week. States he did not run out of his pain medications. Denies any new symptoms. Denies any lower back pain, saddle anesthesias, difficulty with urination or bowel movements. Denies any chest pain, shortness of breath. Endorses chronic back pain. No change in symptoms, however no improvement in symptoms. States that the oxycodone doesn't seem to be working any more. Is uncertain why he came in. States he does have difficulty walking but was able to walk from his house to his car and drive himself here for evaluation. States he lives alone. Presents today after wanted to see someone as he has not followed up with any physician lately. - Related Data Home Medications Medication Instructions Recorded Confirmed lamoTRIgine 200 mg PO BID 10/01/15 04/12/19 Donepezil [Aricept] 10 mg PO HS 08/11/17 04/12/19 Aspirin EC [Ecotrin Low Dose] 81 mg PO DAILY 01/30/18 04/12/19 oxyCODONE-APAP 10-325MG [Percocet 1 tab PO BID 01/30/18 04/12/19 10-325 mg] Ipratropium/Albuterol Sulfate 2 puff INHALATION RT-QID PRN 12/03/18 04/12/19 [Combivent Respimat Inhaler] Previous Rx's Medication Instructions Recorded HYDROcodone/APAP 7.5-325MG [[place] 1 tab PO Q6HR PRN 3 Days #10 tab 01/03/19 7.5-325] Allergies Allergy/AdvReac Type Severity Reaction Status Date / Time divalproex sodium Allergy Unknown Verified 01/17/22 12:17 [From Depakote] Childhood Review of Systems ROS Statement: Those systems with pertinent positive or pertinent negative responses have been documented in the HPI. Review of Systems: CONST: Denies fever EYES: Denies blurry vision ENT: Denies nasal congestion C/V: Denies Chest pain RESP: Denies shortness of breath GI: Denies abdominal pain : Denies dysuria SKIN: Denies rash. MSK: Endorses chronic leg pain. NEURO: Denies headache ROS Other: All systems not noted in ROS Statement are negative. Past Medical History Past Medical History: Asthma, CVA/TIA, Fibromyalgia, Memory Impairment, Seizure Disorder Additional Past Medical History / Comment(s): charlette "I have 3 hernias to be fixed."Hx Lyme disease-approx 10 yrs ago, DDD, bulging discs, chronic low back pain, brain lesions-scar tissue, last seizure 01/30/18, memory/cognitive problems at times.TIA 01/30/18-no residual,INTERMINTENT DIARRHEA FOR MONTHS History of Any Multi-Drug Resistant Organisms: None Reported Past Surgical History: Appendectomy, Cholecystectomy, Hernia Repair, Orthopedic Surgery Additional Past Surgical History / Comment(s): right knee arthroscopy Past Anesthesia/Blood Transfusion Reactions: No Reported Reaction, Motion Sickness Additional Past Anesthesia/Blood Transfusion Reaction / Comment(s): no hx blood transfusion Past Psychological History: Anxiety, Depression Smoking Status: Never smoker Past Alcohol Use History: Occasional Past Drug Use History: None Reported - Past Family History Father Family Medical History: Myocardial Infarction ([place]) Additional Family Medical History / Comment(s): Father of a [place] at the age of 62 yrs. Mother History Unknown: Yes Additional Family Medical History / Comment(s): Mother did not discuss her health problems. General Exam - General Exam Comments Initial Comments: General: Appears in no acute distress. HEAD: Normal with no signs of head trauma. EYES: PERRLA, EOMI, conjunctiva normal, no discharge. ENT: Hearing grossly intact, normal oropharynx. RESPIRATORY: Clear breath sounds bilaterally. No wheezes, rales, or rhonchi. C/V: Regular rate and rhythm. S1 and S2 auscultated, no edema, peripheral pulses 2+ and intact throughout ABD: Abd is soft, nontender, nondistended EXT: Normal range of motion, no obvious deformity. Some mild reduced range of motion secondary to chronic pain. Nonspecific tenderness to palpation. No obvious abnormalities. There is stable. No midline lumbar, thoracic, cervical spine tenderness to palpation. SKIN: No rashes or lesions observed on exposed skin. NEURO: Alert and oriented x 4. Cranial nerves II-XII intact. No focal sensory or strength deficits. Limitations: no limitations Course Vital Signs 01/17/22 12:14 Temperature 98.5 F Pulse Rate 68 Respiratory 20 Rate Blood Pressure 155/84 O2 Sat by Pulse 98 Oximetry Medical Decision Making - Medical Decision Making Abdomen the patient's presentation and physical exam, he is experiencing is chronic fibromyalgia pain. I discussed with him at length his expectations for his visit today. He is uncertain what he would like with today's visit. States he lives alone. Has not followed up with his pain specialist, Dr. Mackey. I did offer him a dose of pain medications here which he declined. He states he does have oxycodone at home. I explained to him there is no indication for admission. He has his typical chronic pain symptoms. Patient is having no red flag symptoms suggest any spinal cord compression including cauda equina syndrome. Has no new symptoms, just persistent chronic symptoms for years. States he has received received extensive outpatient workup with no clear explanation. Recommended follow up with his pain specialist. He expressed understanding was in agreement with this plan. I instructed the patient to follow up with their PCP in the next 3 days. I explained that the patient should return to the emergency department if they experience any worsening symptoms. Strict return precautions were discussed with the patient. The patient expressed understanding of these instructions. I answered all questions that the patient had. The patient was discharged home in fair condition with their prescriptions and follow up information. Disposition Clinical Impression: Chronic pain Disposition: HOME SELF-CARE Condition: Good Instructions (If sedation given, give patient instructions): Chronic Pain (ED) Is patient prescribed a controlled substance at d/c from ED?: No Referrals: Dwayne Belle MD [Primary Care Provider] - 1-2 days William Mackey MD [Medical Doctor] - 1-2 days Time of Disposition: 12:50
== END 2022-01-17 13:07 | disposition home or self-care (01) ==
LOC: EC 12:12
DX: G89.29 Other chronic pain (principal); M79.605 Pain in left leg; M79.604 Pain in right leg; J45.909 Unspecified asthma, uncomplicated; M79.7 Fibromyalgia; Z88.8 Allergy status to other drugs, medicaments and biological substances; Z79.82 Long term (current) use of aspirin; Z79.899 Other long term (current) drug therapy
CPT/HCPCS: 99283

== ENCOUNTER → 2023-03-23 | Outpatient (CLI) | payer MEDICARE ==
[2023-03-24 02:05] LABS: HCT 43.5 % (39.6-50.0); HGB 14.3 d/dL (13.0-17.0); MCH 31.4 pg (27.0-32.0); MCHC 32.9 d/dL (32.0-37.0); MCV 95.4 FL (80.0-97.0); Mean Platelet Volume 11.1 FL (9.5-12.2); NRBC Per 100 WBC 0 X 10*3/uL (0.00-0.01); Platelet Count 252 X 10*3/uL (140-440); RBC 4.56 X 10*6/uL (4.40-5.60); RDW 12.2 % (11.5-14.5); WBC 7.63 X 10*3/uL (4.50-10.00)
[2023-03-24 02:19] LABS: Erythrocyte Sedimentation Rate 2 mm/Hr (0-20)
[2023-03-24 02:59] LABS: Blood Urea Nitrogen 14.3 mg/dL (9.0-27.0); C Reactive Protein <0.30 mg/dL (0.00-0.80)
[2023-03-24 03:49] LABS: Albumin 4.7 d/dL (3.8-4.9); Immunoglobulin A 70.2 mg/dL (60.0-350.0); Immunoglobulin M 93.3 mg/dL (40.0-280.0); Protein, Total 6.8 d/dL (6.2-8.2)
[2023-03-24 14:14] LABS: C-ANCA <1:20 Titer (<1:20)
[2023-03-24 18:26] LABS: Gamma Globulin 0.74 d/dL (0.70-1.50)
== END | disposition home or self-care (01) ==
LOC: LABWHC1 14:18
PROVIDERS: ATTEND Psychiatry & Neurology Neurology
DX: G62.9 Polyneuropathy, unspecified (principal); M79.606 Pain in leg, unspecified
CPT/HCPCS: 36415; 81050; 82607; 83036; 84165; 84520; 85027; 85652; 86038; 86140; 86255; 86334; 86780

== ENCOUNTER 2023-03-29 15:09 | Observation (INO) | payer MEDICARE ==
[2023-03-29 15:57] LABS: Basophils % (A) 0 %; Eosinophils # (A) 0.3 k/uL (0-0.7); Eosinophils % (A) 5 %; HCT 38.8 % (39.0-53.0); HGB 13.3 gm/dL (13.0-17.5); Lymphocytes # (A) 1.5 k/uL (1.0-4.8); Lymphocytes % (A) 24 %; MCH 32.5 pg (25.0-35.0); MCHC 34.4 g/dL (31.0-37.0); MCV 94.5 fL (80.0-100.0); Mean Platelet Volume 7.2; Monocytes # (A) 0.4 k/uL (0-1.0); Monocytes % (A) 6 %; Neutrophils % (A) 63 %; Platelet Count 191 k/uL (150-450); RBC 4.11 m/uL (4.30-5.90); RDW 12.4 % (11.5-15.5); WBC 6.4 k/uL (3.8-10.6)
[2023-03-29 16:09] LABS: Prothrombin Time 10.7 sec (9.0-12.0)
[2023-03-29 16:10] LABS: Partial Thromboplastin Time 24.6 sec (22.0-30.0)
[2023-03-29 16:28] LABS: ALT 34 U/L (4-49); AST 39 U/L (17-59); African American GFR (CKD) 84 (>60 ml/min/1.73 sqM); Albumin 4.3 g/dL (3.5-5.0); Alkaline Phosphatase 80 U/L (38-126); Anion Gap 9 mmol/L; Blood Urea Nitrogen 14 mg/dL (9-20); Calcium 8.6 mg/dL (8.4-10.2); Carbon Dioxide 25 mmol/L (22-30); Chloride 104 mmol/L (98-107); Glucose 89 mg/dL (74-99); Magnesium 2.2 mg/dL (1.6-2.3); Non-African American GFR(CKD) 73 (>60 ml/min/1.73 sqM); Potassium 4.1 mmol/L (3.5-5.1); Sodium 138 mmol/L (137-145); Total Bilirubin 0.6 mg/dL (0.2-1.3); Total Protein 6.9 g/dL (6.3-8.2)
--- NOTE | 2023-03-29 16:52 | XR ---
EXAMINATION TYPE: XR chest 2V DATE OF EXAM: 03/29/2023 COMPARISON: 09/01/2020 HISTORY: Shortness of breath TECHNIQUE: Frontal and lateral views of the chest are obtained. FINDINGS: Scattered senescent parenchymal changes noted. Hyperinflation compatible with COPD. No evidence for infiltrate. No evidence for atelectasis. Heart size is stable. Mediastinal structures are stable and grossly unremarkable. No evidence for hilar prominence. Degenerative changes dorsal spine. IMPRESSION: 1. No evidence for acute pulmonary disease.
[2023-03-29] MEDS ORDERED: DEXAMETHASONE SOD PHOSPHATE 10 MG/ML 1 ML VIAL IVP STA (17:48)
[2023-03-29] MEDS ORDERED: METOCLOPRAMIDE 5 MG/ML 2 ML VIAL IVP STA (17:48)
[2023-03-29] MEDS ORDERED: KETOROLAC 15 MG/ML 1 ML VIAL IVP STA (17:48)
[2023-03-29] MEDS ORDERED: SODIUM CHLORIDE 0.9% 1,000 ML IV STA (17:48)
[2023-03-29] MEDS ORDERED: diphenhydrAMINE 50 MG/ML 1 ML VIAL IVP STA (17:48)
--- NOTE | 2023-03-29 17:48 | ED ---
Headache HPI - General Chief Complaint: Headache Stated Complaint: migraine, tight chest, Time Seen by Provider: 03/29/23 17:16 Mode of arrival: ambulatory Limitations: no limitations - History of Present Illness Initial Comments: 57-year-old male with past medical history of stroke who presents to the emergency department for chest pain and headache. States that he has no pre vious history of cardiac disease. He has never had any stress testing. Developed pain last night and describes it as a pressure sensation across his chest. Pain has been waxing and waning. He denies fevers, chills or cough. No swelling. Also admits to a migraine headache. Patient has history of migraines. States that this one has been unrelenting. He denies any visual changes. No head trauma. Denies any neck stiffness. No other alleviating, precipitating or modifying factors - Related Data Home Medications Medication Instructions Recorded Confirmed lamoTRIgine 200 mg PO BID 10/01/15 03/29/23 oxyCODONE-APAP 10-325MG [Percocet 1 tab PO TID 01/30/18 03/29/23 10-325 mg] Donepezil [Aricept] 5 mg PO HS 03/29/23 03/29/23 Gabapentin 600 mg PO BID 03/29/23 03/29/23 Meloxicam [Mobic] 15 mg PO DAILY 03/29/23 03/29/23 Naloxone HCl [Narcan] 4 mg NASAL ONCE PRN 03/29/23 03/29/23 Verapamil HCl [Verapamil ER] 120 mg PO DAILY 03/29/23 03/29/23 Allergies Allergy/AdvReac Type Severity Reaction Status Date / Time divalproex sodium Allergy Unknown Verified 03/29/23 19:48 [[facility] Childhood Review of Systems ROS Statement: Those systems with pertinent positive or pertinent negative responses have been documented in the HPI. ROS Other: All systems not noted in ROS Statement are negative. Past Medical History Past Medical History: Asthma, CVA/TIA, Fibromyalgia, Memory Impairment, Seizure Disorder Additional Past Medical History / Comment(s): charlette "I have 3 hernias to be fixed."Hx Lyme disease-approx 10 yrs ago, DDD, bulging discs, chronic low back pain, brain lesions-scar tissue, last seizure 01/30/18, memory/cognitive problems at times.TIA 01/30/18-no residual,INTERMINTENT DIARRHEA FOR MONTHS History of Any Multi-Drug Resistant Organisms: None Reported Past Surgical History: Appendectomy, Cholecystectomy, Hernia Repair, Orthopedic Surgery Additional Past Surgical History / Comment(s): right knee arthroscopy Past Anesthesia/Blood Transfusion Reactions: No Reported Reaction, Motion Sickness Additional Past Anesthesia/Blood Transfusion Reaction / Comment(s): no hx blood transfusion Past Psychological History: Anxiety, Depression Smoking Status: Never smoker Past Alcohol Use History: Occasional Past Drug Use History: None Reported - Past Family History Father Family Medical History: Myocardial Infarction ([place]) Additional Family Medical History / Comment(s): Father of a [place] at the age of 62 yrs. Mother History Unknown: Yes Additional Family Medical History / Comment(s): Mother did not discuss her health problems. General Exam Limitations: no limitations General appearance: alert, in no apparent distress Head exam: Present: atraumatic, normocephalic, normal inspection Eye exam: Present: normal appearance, PERRL, EOMI. Absent: scleral icterus, conjunctival injection, periorbital swelling ENT exam: Present: normal exam, mucous membranes moist Neck exam: Present: normal inspection. Absent: tenderness, meningismus, lymphadenopathy Respiratory exam: Present: normal lung sounds bilaterally. Absent: respiratory distress, wheezes, rales, rhonchi, stridor Cardiovascular Exam: Present: regular rate, normal rhythm, normal heart sounds. Absent: systolic murmur, diastolic murmur, rubs, gallop, clicks GI/Abdominal exam: Present: soft, normal bowel sounds. Absent: distended, tenderness, guarding, rebound, rigid Extremities exam: Present: normal inspection, full ROM, normal capillary refill. Absent: tenderness, pedal edema, joint swelling, calf tenderness Back exam: Present: normal inspection Neurological exam: Present: alert, oriented X3, CN II-XII intact Psychiatric exam: Present: normal affect, normal mood Skin exam: Present: warm, dry, intact, normal color. Absent: rash Course Vital Signs 03/29/23 03/29/23 15:21 23:00 Temperature 98 F 98.4 F Pulse Rate 72 85 Respiratory 16 16 Rate Blood Pressure 125/77 126/79 O2 Sat by Pulse 98 95 Oximetry Medical Decision Making - Medical Decision Making Was pt. sent in by a medical professional or institution (, PA, [employer], urgent care, hospital, or fpc...) When possible be specific @ -No Did you speak to anyone other than the patient for history (EMS, parent, family, police, friend...)? What history was obtained from this source @ -No Did you review nursing and triage notes (agree or disagree)? Why? @ -I reviewed and agree with nursing and triage notes Were old charts reviewed (outside hosp., previous admission, EMS record, old EKG, old radiological studies, urgent care reports/EKG's, fpc records)? Report findings @ -No old charts were reviewed Differential Diagnosis (chest pain, altered mental status, abdominal pain women, abdominal pain men, vaginal bleeding, weakness, fever, dyspnea, syncope, headache, dizziness, GI bleed, back pain, seizure, CVA, palpatations, mental health, musculoskeletal)? @ -Differential Chest Pain: Stable Angina, Unstable Angina, STEMI, NSTEMI Aortic Dissection, Pneumothorax, Musculoskeletal, Esophageal Spasm GERD, Cholecystitis, Pancreatitis, Zoster, this is not meant to be an all-inclusive list. EKG interpreted by me (3pts min.). @ -Yes and demonstrates sinus rhythm with rate of 71. AR interval 155. QRS 9 2. QTC of 384. No acute ST segment elevations or depressions X-rays interpreted by me (1pt min.). @ -Yes and demonstrates no acute intrathoracic process CT interpreted by me (1pt min.). @ -None done U/S interpreted by me (1pt. min.). @ -None done What testing was considered but not performed or refused? (CT, X-rays, U/S, labs)? Why? @ -None What meds were considered but not given or refused? Why? @ -None Did you discuss the management of the patient with other professionals (professionals i.e. DrPeggy, PA, [employer], lab, RT, psych nurse, perinatal social worker, delinquency prevention social worker, teacher, assurance officer, high risk case manager)? Give summary @ -Spoke with Dr. Cerrato who will admit the patient Was smoking cessation discussed for >3mins.? @ -No Was critical care preformed (if so, how long)? @ -No Were there social determinants of health that impacted care today? How? (Homelessness, low income, unemployed, alcoholism, drug addiction, transportation, low edu. Level, literacy, decrease access to med. care, [facility], rehab)? @ -No Was there de-escalation of care discussed even if they declined (Discuss DNR or withdrawal of care, Hospice)? DNR status @ -No What co-morbidities impacted this encounter? (DM, HTN, Smoking, COPD, CAD, Cancer, CVA, ARF, Chemo, Hep., AIDS, mental health diagnosis, sleep apnea, morbid obesity)? @ -CVA, hypertension Was patient admitted / discharged? Hospital course, mention meds given and route, prescriptions, significant lab abnormalities, going to OR and other pertinent info. @ -I will patient was placed into room 12. Thorough history and physical exam was performed. 12-lead EKG was performed which demonstrates no acute ST segment elevation. He is placed in continuous pulse ox and cardiac monitoring. IV is established laboratory studies were conducted. He was provided with a migraine cocktail and reevaluated. States that his headache has completely resolved at this time however he continues to have chest pressure. Due to his known risk factors, patient will be admitted for chest pain rule out. Is agreeable to this. He was given an aspirin and admitted with cardiology to consult Undiagnosed new problem with uncertain prognosis? @ -Yes Drug Therapy requiring intensive monitoring for toxicity (Heparin, Nitro, Insulin, Cardizem)? @ -No Were any procedures done? @ -No Diagnosis/symptom? @ -Acute chest pain, acute exacerbation of chronic migraines Acute, or Chronic, or Acute on Chronic? @ -See above Uncomplicated (without systemic symptoms) or Complicated (systemic symptoms)? @ -Complicated Side effects of treatment? @ -No Exacerbation, Progression, or Severe Exacerbation? @ -Exacerbation of chronic migraines Poses a threat to life or bodily function? How? (Chest pain, [place], HI, pneumonia, PE, COPD, DKA, ARF, appy, cholecystitis, CVA, Diverticulitis, Homicidal, Suicidal, threat to staff... and all critical care pts) @ -Yes patient has chest pain which may represent acute coronary disease - Lab Data Result diagrams: 03/29/23 15:37 03/29/23 15:37 Lab Results 03/29/23 03/29/23 03/29/23 Range/Units 15:37 15:37 15:37 WBC 6.4 (3.8-10.6) k/uL RBC 4.11 L (4.30-5.90) m/uL Hgb 13.3 (13.0-17.5) gm/dL Hct 38.8 L (39.0-53.0) % MCV 94.5 (80.0-100.0) fL MCH 32.5 (25.0-35.0) pg MCHC 34.4 (31.0-37.0) g/dL RDW 12.4 (11.5-15.5) % Plt Count 191 (150-450) k/uL MPV 7.2 Neutrophils % 63 % Lymphocytes % 24 % Monocytes % 6 % Eosinophils % 5 % Basophils % 0 % Neutrophils # 4.0 (1.3-7.7) k/uL Lymphocytes # 1.5 (1.0-4.8) k/uL Monocytes # 0.4 (0-1.0) k/uL Eosinophils # 0.3 (0-0.7) k/uL Basophils # 0.0 (0-0.2) k/uL PT 10.7 (9.0-12.0) sec INR 1.0 (<1.2) APTT 24.6 (22.0-30.0) sec Sodium 138 (137-145) mmol/L Potassium 4.1 (3.5-5.1) mmol/L Chloride 104 (98-107) mmol/L Carbon Dioxide 25 (22-30) mmol/L Anion Gap 9 mmol/L BUN 14 (9-20) mg/dL Creatinine 1.11 (0.66-1.25) mg/dL Est GFR (CKD-EPI)AfAm 84 (>60 ml/min/1.73 sqM) Est GFR (CKD-EPI)NonAf 73 (>60 ml/min/1.73 sqM) Glucose 89 (74-99) mg/dL Calcium 8.6 (8.4-10.2) mg/dL Magnesium 2.2 (1.6-2.3) mg/dL Total Bilirubin 0.6 (0.2-1.3) mg/dL AST 39 (17-59) U/L ALT 34 (4-49) U/L Alkaline Phosphatase 80 (38-126) U/L Troponin I (0.000-0.034) ng/mL Total Protein 6.9 (6.3-8.2) g/dL Albumin 4.3 (3.5-5.0) g/dL 03/29/23 Range/Units 15:37 WBC (3.8-10.6) k/uL RBC (4.30-5.90) m/uL Hgb (13.0-17.5) gm/dL Hct (39.0-53.0) % MCV (80.0-100.0) fL MCH (25.0-35.0) pg MCHC (31.0-37.0) g/dL RDW (11.5-15.5) % Plt Count (150-450) k/uL MPV Neutrophils % % Lymphocytes % % Monocytes % % Eosinophils % % Basophils % % Neutrophils # (1.3-7.7) k/uL Lymphocytes # (1.0-4.8) k/uL Monocytes # (0-1.0) k/uL Eosinophils # (0-0.7) k/uL Basophils # (0-0.2) k/uL PT (9.0-12.0) sec INR (<1.2) APTT (22.0-30.0) sec Sodium (137-145) mmol/L Potassium (3.5-5.1) mmol/L Chloride (98-107) mmol/L Carbon Dioxide (22-30) mmol/L Anion Gap mmol/L BUN (9-20) mg/dL Creatinine (0.66-1.25) mg/dL Est GFR (CKD-EPI)AfAm (>60 ml/min/1.73 sqM) Est GFR (CKD-EPI)NonAf (>60 ml/min/1.73 sqM) Glucose (74-99) mg/dL Calcium (8.4-10.2) mg/dL Magnesium (1.6-2.3) mg/dL Total Bilirubin (0.2-1.3) mg/dL AST (17-59) U/L ALT (4-49) U/L Alkaline Phosphatase (38-126) U/L Troponin I <0.012 (0.000-0.034) ng/mL Total Protein (6.3-8.2) g/dL Albumin (3.5-5.0) g/dL Disposition Clinical Impression: Headache, Chest pain Disposition: ADMITTED IP TO THIS [facility] Condition: Stable Is patient prescribed a controlled substance at d/c from ED?: No Time of Disposition: 19:53 Decision to Admit Reason: Admit from EC Decision Date: 03/29/23 Decision Time: 19:53
[2023-03-29] MEDS ORDERED: ASPIRIN 81 MG PO STA (19:52)
[2023-03-29] MEDS ORDERED: NALOXONE 0.4 MG/ML 1 ML VIAL IV PRN (19:53)
[2023-03-30] MEDS: lamoTRIgine 100 MG TAB PO SCH ×3 (00:03→20:03)
[2023-03-30] MEDS: oxyCODONE-APAP 10-325MG 1 EACH TAB PO SCH ×3 (00:03→20:03)
[2023-03-30] MEDS: GABAPENTIN 300 MG CAP PO SCH ×3 (00:03→20:04)
[2023-03-30] MEDS: DONEPEZIL 5 MG TAB PO SCH ×2 (00:04→20:03)
--- NOTE | 2023-03-30 03:10 | P.HPIM ---
History of Present Illness H&P Date: 03/29/23 Chief Complaint: Generalized body aches 57-year-old male with fibromyalgia history of CVA As I interviewed the patient he did not mention a word about chest pain. He was telling me about his prior experiences a different hospital where he feels frustrated that no one is willing to help him his main concern is chronic low back pain resulting in bilateral lower extremity weakness he reports shooting pain down his bilateral lower extremities which sometimes makes it difficult for him to walk E reports this been going on for 3 years for which she is bedridden most of the time he recently started getting some home health care which has been helping. He claims that he has seen a surgeon in the past who told him that he is not a good surgical candidate. He sees a neurologist as an outpatient but doesn't feel like the office has been addressing his concerns. Patient denies any tobacco smoking and illicit drugs or heavy alcohol He does report history of seizure on which she takes taking medications denies any recent breakthroughs He also reports chronic migraine headaches that comes and goes currently during my evaluation he denies any headaches denies any vision changes denies any hearing changes denies any new onset focal neuro deficits Upon asking him regarding chest pain that was reported by ED doctor, he reports that earlier he felt some discomfort across his chest with no associated profuse sweating nausea vomiting dizziness or lightheadedness denies any associated shortness of breath denies any prior cardiac history or workup in the past. Patient also reports some difficulty with urination and frequent urination at night small amounts of time with some hesitation. He has never been diagnosed with BPH he is not on any Flomax her medications for his prostate review of systems Pertinent positives as noted in HPI. All other systems were reviewed and are negative on exam Constitutional: No acute distress, conversant, pleasant Eyes: Anicteric sclerae, moist conjunctiva, Pupils equal round reactive to light ENMT: NC/AT Oropharynx clear, no erythema, or exudates Neck: Supple, no masses, or JVD No carotid bruits No thyromegaly Lungs: Clear to auscultation Clear to percussion Normal respiratory effort, no accessory muscle use Cardiovascular: Heart regular in rate and rhythm, No murmurs, gallops, or rubs No peripheral edema Abdominal: Soft Nontender, no guarding, rebound or rigidity Abdomen moving with respiration Normoactive bowel sounds No hepatomegaly, No splenomegaly No palpable mass No abdominal wall hernia noted Skin: Normal temperature, tone, texture, turgor No induration No subcutaneous nodules No rash, lesions No ulcers Extremities: No digital cyanosis No clubbing Pedal pulses intact and symmetrical Radial pulses intact and symmetrical No calf tenderness Psychiatric: Alert and oriented to person, place and time Appropriate affect fair judgement Neuro Muscles Strength 4/5 in all 4 extremities patient was able to get up on his bed gather has stopped stand up and walk to the bathroom on his own with no assistance, Sensation to light touch grossly present throughout Cranial nerves II-XII grossly intact Lymphatics: no palpable cervical or supraclavicular lymph nodes Past Medical History Past Medical History: Asthma, CVA/TIA, Fibromyalgia, Memory Impairment, Seizure Disorder Additional Past Medical History / Comment(s): charlette "I have 3 hernias to be fixed."Hx Lyme disease-approx 10 yrs ago, DDD, bulging discs, chronic low back pain, brain lesions-scar tissue, last seizure 01/30/18, memory/cognitive problems at times.TIA 01/30/18-no residual,INTERMINTENT DIARRHEA FOR MONTHS History of Any Multi-Drug Resistant Organisms: None Reported Past Surgical History: Appendectomy, Cholecystectomy, Hernia Repair, Orthopedic Surgery Additional Past Surgical History / Comment(s): right knee arthroscopy Past Anesthesia/Blood Transfusion Reactions: No Reported Reaction, Motion Sickness Additional Past Anesthesia/Blood Transfusion Reaction / Comment(s): no hx blood transfusion Past Psychological History: Anxiety, Depression Smoking Status: Never smoker Past Alcohol Use History: Occasional Past Drug Use History: None Reported - Past Family History Father Family Medical History: Myocardial Infarction ([place]) Additional Family Medical History / Comment(s): Father of a [place] at the age of 62 yrs. Mother History Unknown: Yes Additional Family Medical History / Comment(s): Mother did not discuss her health problems. Medications and Allergies Home Medications Medication Instructions Recorded Confirmed Type lamoTRIgine 200 mg PO BID 10/01/15 03/29/23 History oxyCODONE-APAP 10-325MG [Percocet 1 tab PO TID 01/30/18 03/29/23 History 10-325 mg] Donepezil [Aricept] 5 mg PO HS 03/29/23 03/29/23 History Gabapentin 600 mg PO BID 03/29/23 03/29/23 History Meloxicam [Mobic] 15 mg PO DAILY 03/29/23 03/29/23 History Naloxone HCl [Narcan] 4 mg NASAL ONCE PRN 03/29/23 03/29/23 History Verapamil HCl [Verapamil ER] 120 mg PO DAILY 03/29/23 03/29/23 History Allergies Allergy/AdvReac Type Severity Reaction Status Date / Time divalproex sodium Allergy Unknown Verified 03/29/23 19:48 [From [facility]] Childhood Physical Exam Vitals: Vital Signs Temp Pulse Resp BP Pulse Ox 03/30/23 01:00 74 18 114/73 95 03/29/23 23:00 98.4 F 85 16 126/79 95 03/29/23 15:21 98 F 72 16 125/77 98 Intake and Output 03/29/23 03/29/23 03/30/23 14:59 22:59 06:59 Other: Weight 81.647 kg Results CBC & Chem 7: 03/29/23 15:37 03/29/23 15:37 Labs: Abnormal Lab Results - Last 24 Hours (Table) 03/29/23 Range/Units 15:37 RBC 4.11 L (4.30-5.90) m/uL Hct 38.8 L (39.0-53.0) % Assessment and Plan Assessment: 57-year-old male coming in complaining of generalized body aches I discussed the case with the ED doctor I accepted the admission for chest pain to rule out ACS with anticipated length of stay less than 2 midnights Atypical chest pain currently resolved Rule out ACS Troponins negative media monitor Monitor vital signs Cardiology consult Symptoms suggestive of benign prostatic hyperplasia Check PSA Initiate patient on Flomax Blood work unremarkable Hemoglobin 13.6 white count 8.4 Sodium 140 potassium 3.6 BUN 22 creatinine 0.8 TSH unremarkable Chronic conditions Chronic low back pain with radiculopathy bilateral lower extremities with difficulty walking PT evaluation Fall precautions Orthospine evaluation History of seizures continue with lamotrigine Hypertension continue with verapamil Full code DVT prophylaxis heparin subcu 3 times a day
[2023-03-30] MEDS: VERAPAMIL SR 120 MG TABLET.ER PO SCH ×2 (09:00→11:35)
[2023-03-30] MEDS: HEPARIN SODIUM,PORCINE 5,000 UNIT/ML 1 ML VIAL SQ SCH ×3 (10:03→23:28)
[2023-03-30] MEDS: MELOXICAM 7.5 MG TAB PO SCH ×2 (11:34→21:23)
[2023-03-30] MEDS ORDERED: diphenhydrAMINE 50 MG/ML 1 ML VIAL IVP STA (14:14)
[2023-03-30] MEDS ORDERED: ASPIRIN 81 MG PO STA (14:14)
[2023-03-30] MEDS ORDERED: PROCHLORPERAZINE INJ 10 MG/2 ML VIAL IVP STA (14:14)
[2023-03-30] MEDS ORDERED: KETOROLAC 15 MG/ML 1 ML VIAL IVP STA (14:14)
[2023-03-30 16:20] LABS: Basophils # (A) 0.02 X 10*3/uL (0.00-0.10); Basophils % (A) 0.2 %; Eosinophils # (A) 0 X 10*3/uL (0.04-0.35); Eosinophils % (A) 0 %; HCT 42.8 % (39.6-50.0); HGB 14.2 d/dL (13.0-17.0); Lymphocytes # (A) 0.85 X 10*3/uL (0.90-5.00); Lymphocytes % (A) 8.7 %; MCH 31.9 pg (27.0-32.0); MCHC 33.2 d/dL (32.0-37.0); MCV 96.2 FL (80.0-97.0); Mean Platelet Volume 10.3 FL (9.5-12.2); Monocytes # (A) 0.16 X 10*3/uL (0.20-1.00); Monocytes % (A) 1.6 %; NRBC Per 100 WBC 0 X 10*3/uL (0.00-0.01); Neutrophils # (A) 8.67 X 10*3/uL (1.80-7.70); Neutrophils % (A) 88.9 %; Platelet Count 238 X 10*3/uL (140-440); RBC 4.45 X 10*6/uL (4.40-5.60); WBC 9.76 X 10*3/uL (4.50-10.00)
[2023-03-30 16:29] LABS: Blood Urea Nitrogen 11.8 mg/dL (9.0-27.0); Calcium 9.2 mg/dL (8.7-10.3); Carbon Dioxide 23.6 mmol/L (21.6-31.8); Chloride 108 mmol/L (96-109); Glucose 112 mg/dL (70-110); Potassium 4.7 mmol/L (3.5-5.5); Sodium 142 mmol/L (135-145)
--- NOTE | 2023-03-30 16:46 | P.CNOR ---
History of Present Illness - [facility] Consult date: 03/30/23 Requesting physician: Antony Santacruz Consult reason: other (chronic back pain w/radiculopathy) History of present illness: Patient is a 57-year-old male with a past medical history of stroke, fibromyalgia presents to the emergency department with multiple complaints leg chest pain, headache as well as ongoing low back pain. Orthopedics was consulted for low back pain and radiculopathy. Patient was seen at bedside this morning lying semirecumbent position with darkening glasses one stating that he is currently having a headache. Patient states that he has had ongoing low back pain for years and it has affected his ability to ambulate. Patient says he does use a cane at home. Patient denies any recent falls/traumas. Patient says he has been following with a neurologist Dr. Cordero who ordered an MRI of his lumbar spine and patient says he had an MRI lumbar spine performed in the past month but cannot recall which hospital at this was that. Patient states currently he is having low back pain. Patient denies radiation of pain. Patient says several years ago he did have a series of injections in his back. Patient's says he was a previous patient of Dr. Mackey who did perform these injections. Patient denies loss of bowel/bladder control. Patient denies saddle anesthesia. Patient denies any previous spine surgeries. Patient denies chest pain, fever, shortness of breath, nausea, vomiting, change in vision. Past Medical History Past Medical History: Asthma, CVA/TIA, Fibromyalgia, Memory Impairment, Seizure Disorder Additional Past Medical History / Comment(s): charlette "I have 3 hernias to be fixed."Hx Lyme disease-approx 10 yrs ago, DDD, bulging discs, chronic low back pain, brain lesions-scar tissue, last seizure 01/30/18, memory/cognitive problems at times.TIA 01/30/18-no residual,INTERMINTENT DIARRHEA FOR MONTHS History of Any Multi-Drug Resistant Organisms: None Reported Past Surgical History: Appendectomy, Cholecystectomy, Hernia Repair, Orthopedic Surgery Additional Past Surgical History / Comment(s): right knee arthroscopy Past Anesthesia/Blood Transfusion Reactions: No Reported Reaction, Motion Sickness Additional Past Anesthesia/Blood Transfusion Reaction / Comm: no hx blood transfusion Past Psychological History: Anxiety, Depression Additional Psychological History / Comment(s): Pt resides alone in his own home. 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 He is independent. He drives. He states he has be en losing wt d/t unable to afford food to eat. Smoking Status: Never smoker Past Alcohol Use History: Occasional Additional Past Alcohol Use History / Comment(s): no smoking approx 5 years Pt states he will have an occaional cigar but not often. Past Drug Use History: None Reported - Past Family History Father Family Medical History: Myocardial Infarction ([place]) Additional Family Medical History / Comment(s): Father of a [place] at the age of 62 yrs. Mother History Unknown: Yes Additional Family Medical History / Comment(s): Mother did not discuss her health problems. Medications and Allergies Home Medications Medication Instructions Recorded Confirmed Type lamoTRIgine 200 mg PO BID 10/01/15 03/29/23 History oxyCODONE-APAP 10-325MG [Percocet 1 tab PO TID 01/30/18 03/29/23 History 10-325 mg] Donepezil [Aricept] 5 mg PO HS 03/29/23 03/29/23 History Gabapentin 600 mg PO BID 03/29/23 03/29/23 History Meloxicam [Mobic] 15 mg PO DAILY 03/29/23 03/29/23 History Naloxone HCl [Narcan] 4 mg NASAL ONCE PRN 03/29/23 03/29/23 History Verapamil HCl [Verapamil ER] 120 mg PO DAILY 03/29/23 03/29/23 History Allergies Allergy/AdvReac Type Severity Reaction Status Date / Time divalproex sodium Allergy Unknown Verified 03/29/23 19:48 [From Depakote] Childhood Physical Examination Inspection: Negative for any open fractures, significant erythema/ecchymosis/open wounds. Sensation: Equal, symmetric, bilateral intact throughout the upper and lower extremities Palpation: Some generalized uvnj-ab-cvmzmpdj tenderness patient diffusely throughout the lumbar spine and bilateral SI joints. Nontender to palpation throughout rest of exam Range of motion: Patient has full range of motion bilateral upper extremities. There is some limited range of motion in bilateral hips and knees in flexion/extension secondary to his weakness and referred pain from the low back.. Patient has full range of motion throughout rest of joints in lower extremities Motor: 4/5 in all major motor exam bilateral upper extremities. 4-/5 in resisted bilateral knee flexion/extension and hip flexion/extension. 4+/5 in all other major motor in bilateral lower extremities Neurovascular: Radial pulses intact, 2+ bilaterally. Cap refill under 3 seconds in digits of upper extremities Special tests: Negative Homans bilaterally. Negative clonus bilaterally. Negative Mena bilaterally. Results - Labs Labs: Abnormal Lab Results - Last 24 Hours (Table) 03/29/23 Range/Units 15:37 RBC 4.11 L (4.30-5.90) m/uL Hct 38.8 L (39.0-53.0) % H & H 03/29/23 Range/Units 15:37 Hgb 13.3 (13.0-17.5) gm/dL Hct 38.8 L (39.0-53.0) % Coagulation 03/29/23 Range/Units 15:37 INR 1.0 (<1.2) Result Diagrams: 03/30/23 09:26 03/30/23 09:26 - Diagnostic results Lumbar AP/lateral x-ray: report reviewed, image reviewed (X-ray of the lumbar spine has been reviewed. Imaging does show some lumbar spondylosis as well as degenerative disc disease. Negative for any fractures/dislocations.) Assessment and Plan Assessment: 1. Low back pain; lumbar spondylosis; degenerative disc disease Plan: 1. Low back pain; lumbar spondylosis; degenerative disc disease - patient was seen and examined at bedside this afternoon. X-ray of the lumbar spine has been reviewed. Imaging does show some lumbar spondylosis as well as degenerative disc disease. Negative for any fractures/dislocations. With patient having a recent MRI performed at an outside facility of his lumbar spine I did discuss with it help desk manager who was going to contact Dr. Cordero's office about lumbar MRI findings/results. I will discuss the findings of the exam and imaging with my attending, Dr. Bansal said before proceeding with any potential orthopedic spine intervention. Pain medication as needed. Patient may benefit from steroids. At this time we're not recommending any emergent/urgent orthopedic surgical intervention. We'll continue follow patient during a standard hospital. 2. Appreciate medical management 3. Pain management - Percocet; gabapentin 4. DVT prophylaxis - heparin 5. GI prophylaxis recs 6. PT/OT - weightbearing as tolerated with walker and assistance as needed 7. Encourage incentive spirometer use 8. Appreciate consult Time with Patient: Less than 30
[2023-03-30] MEDS ORDERED: TAMSULOSIN 0.4 MG CAP.ER.24H PO SCH (18:30)
--- NOTE | 2023-03-30 18:49 | P.PN ---
Subjective Progress Note Date: 03/30/23 Hospital course: Patient is a very pleasant 57-year-old male with a past medical history of fibromyalgia, chronic back pain, and previous CVA without residual deficits. He presented to the emergency department with multiple complaints including generalized body aches, acute on chronic lower back pain, and reports of an episode of chest pain prior to arrival. Physical exam: Vital signs reviewed and stable. General: Nontoxic, no distress and appears stated age. Derm: Skin warm and dry, normal coloration for ethnicity. Head: Atraumatic, normocephalic and symmetric. Eyes: EOMs intact, no lid lag, and anicteric sclera Mouth: no lip lesions, mucus membranes moist Cardiovascular: regular rate and rhythm with normal S1S2, no murmur, positive posterior tibial pulses bilaterally, and cap refill < 2 seconds. Lungs: Respirations even, regular, and unlabored on room air. Lungs CTA bilaterally, no rhonchi, no rales, no wheezing, and no accessory muscle usage. Abdominal: soft, nontender to palpation, no guarding, no appreciable organomegaly Ext: ROM intact. No gross muscle atrophy, no edema, no contractures Neuro: Speech clear, face symmetrical and CN II-XII grossly intact with no noted focal neuro deficits Psych: Alert and oriented to person, place, time, and situation. Appropriate and pleasant affect. Assessment and Plan of Care: Acute on chronic lower back pain with bilateral lower extremity sciatica and radiculopathy -Orthopedic surgery consulted -Symptomatic care and pain management -Fall precautions -Consult physical therapy Recent episode of atypical chest pain, resided prior to admission -EKG completed showing normal sinus rhythm with no noted T-wave or ST abnormalities, no concerns for acute ischemia. -Troponins trended all negative at less than 0.0123 draws. -Telemetry monitoring. -Patient provided with aspirin 324 mg by mouth 1 dose. -No further cardiac workup necessary at this time. -Recommend outpatient follow-up with guide plant for evaluation for potential stress testing. -We will reconsult cardiology if chest pain recurs. CODE STATUS: Full code DVT prophylaxis: heparin Discussed with: patient and RN Anticipated discharge date: 24-[address]: : Home Patient was seen independently by Nurse Pracitioner. This document was prepared using [employer] dictation software. Please allow for errors in neurocritical care physician, while rare they do occur. Antony Santacruz NP rendered care for this patient independently, reviewed the findings and plan as documented in the note above. I did not physically speak with or examine the patient on this date. Objective - Vital Signs Vital signs: Vital Signs Temp 98.4 F 03/29/23 23:00 Pulse 80 03/30/23 06:12 Resp 18 03/30/23 06:12 BP 116/78 03/30/23 06:12 Pulse Ox 98 03/30/23 06:12 FiO2 Intake & Output 03/29/23 03/30/23 03/30/23 18:59 06:59 18:59 Weight 81.647 kg - Labs CBC & Chem 7: 03/30/23 09:26 03/30/23 09:26 Labs: Abnormal Lab Results - Last 24 Hours (Table) 03/29/23 Range/Units 15:37 RBC 4.11 L (4.30-5.90) m/uL Hct 38.8 L (39.0-53.0) %
[2023-03-30] MEDS ORDERED: MELOXICAM 7.5 MG TAB PO SCH (21:00)
[2023-03-30] MEDS ORDERED: VERAPAMIL SR 120 MG TABLET.ER PO SCH (21:00)
[2023-03-31] MEDS: oxyCODONE-APAP 10-325MG 1 EACH TAB PO SCH ×2 (05:41→08:45)
--- NOTE | 2023-03-31 07:48 | XR ---
EXAMINATION TYPE: XR lumbar spine with bend/flex DATE OF EXAM: 03/30/2023 2:20 PM INDICATION: Patient age:Male; 57 years old; Reason for study: Low back pain; PHH. COMPARISON: MRI lumbar spine 01/29/2017 TECHNIQUE: Neutral, extension, flexion, coned in L5-S1 view and AP view were obtained of the lumbar s pine. FINDINGS: There are 5 lumbar type vertebral bodies identified. No evidence of any acute osseous patho logy. No evidence of loss of vertebral body height is seen. Multilevel space narrowing with endplate sclerosis and anterior osteophytosis. Facet arthropathy of the L4-L5 and L5-S1. No spondylolisthesis . Mild levocurvature of the thoracic spine with apex at L2. Postsurgical clips in the right upper adonis drant. IMPRESSION: 1. No acute process. 2. Mild multilevel degenerative disc disease and facet arthropathy.
[2023-03-31] MEDS: GABAPENTIN 300 MG CAP PO SCH (08:45)
[2023-03-31] MEDS: lamoTRIgine 100 MG TAB PO SCH (08:45)
[2023-03-31] MEDS: HEPARIN SODIUM,PORCINE 5,000 UNIT/ML 1 ML VIAL SQ SCH (08:47)
--- NOTE | 2023-03-31 10:26 | P.DS ---
Providers Date of admission: 03/29/23 19:53 Expected date of discharge: 03/31/23 Attending physician: Renata Gilliland MD Consults: 03/30/23 12:44 Consult Physician Urgent Consulting Provider: Sherman Bansal Consult Reason/Comments: chronic back pain w/radiculopathy Do you want consulting provider notified?: Yes Primary care physician: Stated None Hospital Course: Discharge Diagnosis: Acute on chronic lower back pain with bilateral lower extremity sciatica and radiculopathy, orthospine surgery evaluated and at this time not recommending any emergent/urgent orthopedic surgical intervention.. Orthopedic surgery recommending outpatient follow-up with our office in one week. Recent episode of Chest pain, resided prior to arrival, cardiac workup completed troponins trended 4 all negative at less than 0.012. EKG completed upon arrival showing normal sinus rhythm at 71 bpm with no noted T-wave or ST abnormalities showing no signs of acute ischemia. Repeat EKG done on day 2 again showing normal sinus rhythm at 73 bpm with no noted T-wave or ST abnormalities showing no signs of acute ischemia. Acute coronary event ruled out. Patient is recommended to follow up outpatient with vice president of sales for further evaluation and possible stress testing if needed. Patient reports ongoing urinary retention. Patient started on Flomax 0.4 mg daily. Patient had no further episodes of urinary retention in the hospital. Being discharged home on a 30 days of Flomax. Total PSA was 0.6. Recommend outpatient follow-up with urology if urinary retention recurs. Hospital Course: Patient is a very pleasant 57-year-old male with a past medical history of fibromyalgia, chronic back pain, and previous CVA without residual deficits. He presented to the emergency department on 03/29/23 with multiple complaints including generalized body aches, acute on chronic lower back pain, and reports of an episode of chest pain prior to arrival. Upon arrival to the emergency department, patient underwent full evaluation. Vital signs reviewed and stable. Blood pressure 125/77, heart rate 72, respiratory rate 16, temp 98.0F, SpO2 of 98% on room air. EKG was completed showing normal sinus rhythm at 71 bpm with no noted T-wave or ST abnormalities showing no signs of acute ischemia. Chest x-ray completed negative for acute cardiopulmonary process. X-ray lumbar spine completed in radiology report stating no acute process showing mild multilevel degenerative disc changes with facet arthropathy. Labs completed and reviewed. CBC showing no significant abnormalities. Coagulation profile normal findings. BMP unremarkable. Liver profile also unremarkable. Troponin negative at less than 0.012. Patient was admitted under the services with consultation to [facility] surgery. Troponins were trended overnight and were all negative at less than 0.0124 draws. Repeat EKG completed again showing normal sinus rhythm at 73 bpm with no noted T-wave or ST abnormalities upon personal review and interpretation. Physical exam: Vital signs reviewed and stable. General: Nontoxic, no distress and appears stated age. Derm: Skin warm and dry, normal coloration for ethnicity. Head: Atraumatic, normocephalic and symmetric. Eyes: EOMs intact, no lid lag, and anicteric sclera Mouth: no lip lesions, mucus membranes moist Cardiovascular: regular rate and rhythm with normal S1S2, no murmur, positive posterior tibial pulses bilaterally, and cap refill < 2 seconds. Lungs: Respirations even, regular, and unlabored on room air. Lungs CTA bilaterally, no rhonchi, no rales, no wheezing, and no accessory muscle usage. Abdominal: soft, nontender to palpation, no guarding, no appreciable organomegaly Ext: ROM intact. No gross muscle atrophy, no edema, no contractures Neuro: Speech clear, face symmetrical and CN II-XII grossly intact with no noted focal neuro deficits Psych: Alert and oriented to person, place, time, and situation. Appropriate and pleasant affect. A total of 31 minutes of time were spent preparing this complex discharge summary. Pt was discharged on 03/31/20 through 10:25 AM Patient was seen independently by Nurse Practitioner. This document was prepared using [employer] dictation software. Please allow for errors in auditor appraiser while rare they do occur. Antony Santacruz NP rendered care for this patient independently, reviewed the findings and plan as documented in the note above. I did not physically speak with or examine the patient on this date. Patient Condition at Discharge: Stable Plan - Discharge Summary New Discharge Prescriptions: New Tamsulosin [Flomax] 0.4 mg PO PC-SUPPER 30 Days #30 cap Continue lamoTRIgine 200 mg PO BID oxyCODONE-APAP 10-325MG [Percocet 10-325 mg] 1 tab PO TID Naloxone HCl [Narcan] 4 mg NASAL ONCE PRN PRN Reason: OVERDOSE Meloxicam [Mobic] 15 mg PO DAILY Verapamil HCl [Verapamil ER] 120 mg PO DAILY Gabapentin 600 mg PO BID Donepezil [Aricept] 5 mg PO HS Discharge Medication List lamoTRIgine 200 mg PO BID 10/01/15 [History] oxyCODONE-APAP 10-325MG [Percocet 10-325 mg] 1 tab PO TID 01/30/18 [History] Donepezil [Aricept] 5 mg PO HS 03/29/23 [History] Gabapentin 600 mg PO BID 03/29/23 [History] Meloxicam [Mobic] 15 mg PO DAILY 03/29/23 [History] Naloxone HCl [Narcan] 4 mg NASAL ONCE PRN 03/29/23 [History] Verapamil HCl [Verapamil ER] 120 mg PO DAILY 03/29/23 [History] Tamsulosin [Flomax] 0.4 mg PO PC-SUPPER 30 Days #30 cap 03/31/23 [Rx] Follow up Appointment(s)/Referral(s): Abran Robbins MD [STAFF PHYSICIAN] - 1 Week Thang Tinoco MD [STAFF PHYSICIAN] - 1 Week Toney Kelsey MD [STAFF PHYSICIAN] - 1 Week Sherman Bansal DO [Doctor of Osteopathic Medicine] - 2 Weeks Patient Instructions/Handouts: Lumbar Radiculopathy (GEN), Chronic Back Pain (DC), Lower Back Exercises (GEN) Activity/Diet/Wound Care/Special Instructions: Activity: As tolerated. Take breaks as needed. Diet: Heart healthy and carb consistent diet. Avoid salts, or foods with hidden salts such as canned or boxed foods and frozen dinners. Extra salt makes your heart work harder and traps the fluid in your body for longer. Special Instructions: Take all of your medications as directed and remember to keep all of your doctor's appointments and follow-up as needed. Thank you for allowing us to participate in your care, it was truly a pleasure having you for our patient!!! Discharge Disposition: HOME SELF-CARE
[2023-03-31 14:53] VITALS: BP 115/78; PULSE 66; RESP 20; TEMP 98.1
== END 2023-03-31 18:05 | disposition home or self-care (01) ==
LOC: EC 15:09 → 6NMEDSUR 19:53
PROVIDERS: ADMIT Internal Medicine; ATTEND Internal Medicine
DX: M51.16 Intervertebral disc disorders with radiculopathy, lumbar region (principal); M47.26 Other spondylosis with radiculopathy, lumbar region; R07.89 Other chest pain; R33.9 Retention of urine, unspecified; G43.909 Migraine, unspecified, not intractable, without status migrainosus; J45.909 Unspecified asthma, uncomplicated; M79.7 Fibromyalgia; F32.A Depression, unspecified; F41.9 Anxiety disorder, unspecified; I10 Essential (primary) hypertension; Z86.73 Personal history of transient ischemic attack (TIA), and cerebral infarction without residual deficits; Z79.1 Long term (current) use of non-steroidal anti-inflammatories (NSAID); Z79.899 Other long term (current) drug therapy
CPT/HCPCS: 96376; 96361 ×3; 96372; 96375 ×2; 96374; 99285; 36415; 93005; 97162; 84153; 80053; 80048; 83735; 84484 ×2; 85025 ×2; 85610; 85730; 72114; 71046; G0378 ×4; J1200 ×2; J0780; J1644; J1100; J2765; J1885 ×2

== ENCOUNTER 2025-01-26 20:02 | Emergency (ER) | payer MEDICARE ==
--- NOTE | 2025-01-26 20:43 | ED ---
Fall HPI - General Chief Complaint: Fall Stated Complaint: Fall/Back Injury Time Seen by Provider: 01/26/25 20:12 Source: patient, RN notes reviewed Mode of arrival: ambulatory Limitations: no limitations - History of Present Illness Initial Comments: This is a 59-year-old male who presents to the emergency department for a fall. Patient was working up on a ladder and accidentally fell off, injuring his back. States that he fell 6 to 7 feet. Denies hitting his head or any loss of consciousness. Not taking any blood thinners. Currently complaining of pain to the mid and lower back. Denies sustaining any additional injuries. MD Complaint: fall - Related Data Home Medications Medication Instructions Recorded Confirmed lamoTRIgine 200 mg PO BID 10/01/15 03/29/23 oxyCODONE-APAP 10-325MG [Percocet 1 tab PO TID 01/30/18 03/29/23 10-325 mg] Donepezil [Aricept] 5 mg PO HS 03/29/23 03/29/23 Gabapentin 600 mg PO BID 03/29/23 03/29/23 Meloxicam [Mobic] 15 mg PO DAILY 03/29/23 03/29/23 Naloxone HCl [Narcan] 4 mg NASAL ONCE PRN 03/29/23 03/29/23 Verapamil HCl [Verapamil ER] 120 mg PO DAILY 03/29/23 03/29/23 Previous Rx's Medication Instructions Recorded Tamsulosin [Flomax] 0.4 mg PO PC-SUPPER 30 Days #30 cap 03/31/23 Allergies Allergy/AdvReac Type Severity Reaction Status Date / Time divalproex sodium Allergy Unknown Verified 01/26/25 20:04 [facility] Childhood Review of Systems ROS Statement: Those systems with pertinent positive or pertinent negative responses have been documented in the HPI. ROS Other: All systems not noted in ROS Statement are negative. Past Medical History Past Medical History: Asthma, CVA/TIA, Fibromyalgia, Memory Impairment, Seizure Disorder Additional Past Medical History / Comment(s): charlette "I have 3 hernias to be fixed."Hx Lyme disease-approx 10 yrs ago, DDD, bulging discs, chronic low back pain, brain lesions-scar tissue, last seizure 01/30/18, memory/cognitive problems at times.TIA 01/30/18-no residual,INTERMINTENT DIARRHEA FOR MONTHS History of Any Multi-Drug Resistant Organisms: None Reported Past Surgical History: Appendectomy, Cholecystectomy, Hernia Repair, Orthopedic Surgery Additional Past Surgical History / Comment(s): right knee arthroscopy Past Anesthesia/Blood Transfusion Reactions: No Reported Reaction, Motion Sickness Additional Past Anesthesia/Blood Transfusion Reaction / Comment(s): no hx blood transfusion Past Psychological History: Anxiety, Depression Smoking Status: Never smoker Past Alcohol Use History: Occasional Past Drug Use History: None Reported - Past Family History Father Family Medical History: Myocardial Infarction (SD) Additional Family Medical History / Comment(s): Father of a SD at the age of 62 yrs. Mother History Unknown: Yes Additional Family Medical History / Comment(s): Mother did not discuss her health problems. General Exam Limitations: no limitations General appearance: alert, in no apparent distress Head exam: Present: atraumatic, normocephalic, normal inspection Respiratory exam: Present: normal lung sounds bilaterally. Absent: respiratory distress, wheezes, rales, rhonchi, stridor Cardiovascular Exam: Present: regular rate, normal rhythm Back exam: Present: other (Tenderness to palpation over the mid to lower back) Neurological exam: Present: alert, oriented X3, CN II-XII intact Psychiatric exam: Present: normal affect, normal mood Skin exam: Present: warm, dry, intact, normal color. Absent: rash Course Vital Signs 01/26/25 01/26/25 20:04 23:52 Temperature 97.8 F 98.0 F Pulse Rate 87 88 Respiratory 18 19 Rate Blood Pressure 124/87 124/84 O2 Sat by Pulse 96 96 Oximetry Medical Decision Making - Medical Decision Making This is a 59 year old male who presents to the emergency department for back pain after a fall. Was pt. sent in by a medical professional or institution? @ -No Did you speak to anyone other than the patient for history? @ -No Did you review nursing and triage notes? @ -Yes, and I agree, it is accurate with regards to the patient's symptoms. Were old charts reviewed? @ -No Differential Diagnosis? @ -Differential Back Pain: Strain, zoster, cauda equina syndrome, epidural abscess, vertebral osteomyelitis, discitis, fracture, subluxation, disc herniation, DJD, spinal stenosis, dissection, AAA, pancreatitis, peptic ulcer disease, pyelonephritis, kidney stone, this is not meant to be an all-inclusive list. EKG interpreted by me (3pts min.)? @ -Not obtained X-rays interpreted by me (1pt min.)? @ -Not obtained CT interpreted by me (1pt min.)? @ -CT scan of the thoracic and lumbar spine obtained. My interpretation identifies no acute fractures. U/S interpreted by me (1pt. min.)? @ -Not obtained What testing was considered but not performed? (CT, X-rays, U/S, labs)? Why? @ -None What meds were considered but not given? Why? @ -None Did you discuss the management of the patient with other professionals? @ -No Did you reconcile home meds? @ -No Was smoking cessation discussed for >3mins.? @ -No Was critical care preformed (if so, how long)? @ -No Were there social determinants of health that impacted care today? How? (Homelessness, low income, unemployed, alcoholism, drug addiction, transportation, low edu. Level, literacy, decrease access to med. care, [facility], rehab)? @ -No Was there de-escalation of care discussed even if they declined? (Discuss DNR or withdrawal of care, Hospice)? @ -No What co-morbidities impacted this encounter? (DM, HTN, Smoking, COPD, CAD, Cancer, CVA, Hep., AIDS, mental health diagnosis, sleep apnea, morbid obesity)? @ -Fibromyalgia, chronic back pain Was patient admitted / discharged? @ -Discharged. CT scan of the thoracic and lumbar spine obtained revealing no acute process. Pain was treated in the emergency department. Advised follow-up with his PCP for reevaluation. Patient discharged home in stable condition. Case discussed with ED attending Dr. Brown. Return precautions reviewed in depth, the patient is instructed to return to the emergency department with any new, worsening, or concerning symptoms. Patient verbalized understanding. Undiagnosed new problem with uncertain prognosis? @ -None Drug Therapy requiring intensive monitoring for toxicity (Heparin, Nitro, Insulin, Cardizem)? @ -None Were any procedures done? @ -None Diagnosis/symptom? @ -Fall, back contusion Acute, or Chronic, or Acute on Chronic? @ -Acute Uncomplicated (without systemic symptoms) or Complicated (systemic symptoms)? @ -Uncomplicated Side effects of treatment? @ -None Exacerbation, Progression, or Severe Exacerbation] @ -Not applicable Poses a threat to life or bodily function? @ -No - Radiology Data Radiology results: report reviewed, image reviewed Disposition Clinical Impression: Fall, Back pain, Back contusion Disposition: HOME SELF-CARE Instructions (If sedation given, give patient instructions): Back Pain (ED) Additional Instructions: Return to the emergency department with any new, worsening, or concerning symptoms. Follow up with your primary care provider in 1-2 days. Is patient prescribed a controlled substance at d/c from ED?: No Referrals: None,Stated [Primary Care Provider] - 1-2 days Time of Disposition: 23:47
[2025-01-26] MEDS: KETOROLAC 15 MG/ML 1 ML VIAL IM STA (20:48)
[2025-01-26] MEDS: HYDROmorphone 1 MG/ML 1 ML SYRINGE IM STA (20:48)
--- NOTE | 2025-01-26 23:32 | CT ---
EXAMINATION TYPE: CT thor lumbar spine wo con DATE OF EXAM: 01/26/2025 9:43 PM COMPARISON: Lumbar spine radiograph 03/30/2023. CLINICAL INDICATION: Male, 59 years old with history of 7 ft fall, mid and lower back pain; pt arrive s to ED for c/o fall from ladder approx 6 ft. no LOC. did not hit head. no blood thinners. pt reports lower back pain TECHNIQUE: Axial images of the thoracic and lumbar spine were obtained without contrast. Coronal and sagittal reformats were performed. 3-D reformats of the bones were created on a separate workstation and submitted for review. CT Contrast: CT DLP: 1300.4 mGycm, Automated exposure control for dose reduction was used. FINDINGS: Thoracic spine: No acute fracture or traumatic subluxation. Multilevel intervertebral disc space loss and facet arthr opathy. No significant spondylolisthesis. Partially visualized lungs illustrate no acute pathology. T horacic aorta normal in caliber. Lumbosacral spine: No acute fracture or traumatic subluxation. Multilevel mild intervertebral disc space loss. Evidence of anterior ossified formation. Facet arthropathy, as well as L4-5 and L5-S1. No high-grade spinal ca nal stenosis. Previous cholecystectomy noted. Colonic diverticulosis partially visualized. IMPRESSION: No acute fracture or traumatic subluxation of the thoracic or lumbar spine. [facility], , 01/26/2025 11:29 PM
[2025-01-26 23:58] VITALS: BP 124/84; PULSE 88; RESP 19; TEMP 98
== END 2025-01-26 23:58 | disposition home or self-care (01) ==
LOC: EC 20:02
DX: S20.229A Contusion of unspecified back wall of thorax, initial encounter (principal); M79.7 Fibromyalgia; Z86.73 Personal history of transient ischemic attack (TIA), and cerebral infarction without residual deficits; Z88.8 Allergy status to other drugs, medicaments and biological substances; W11.XXXA Fall on and from ladder, initial encounter
CPT/HCPCS: 72128; 72131; 99283; 96372 ×2; J1171; J1885